=== PATIENT | female | born 1955 | race Caucasian/White ===

== ENCOUNTER 2017-03-08 02:37 | Inpatient (IN) | payer BC ==
[~2017-03-08] VITALS: Ht 165.1 cm; Wt 59.0 kg
[~2017-03-08 02:37] MED LIST: DOCU-144 PO; GABA300C16 PO; LORA1TAB PO; OMEP20CA16 PO; TRAM50TA2 PO; ZOLP10TA5 PO
--- NOTE | 2017-03-08 04:23 | ERA ---
ER Documentation Chief Complaint Date/Time DATE: 03/08/17 TIME: 04:22 Chief Complaint AP with vomiting HPI The patient is a 61-year-old female, presenting with severe diffuse abdominal pain, associated with vomiting initially food then mucus for 1 day. She had similar symptoms previously from small bowel obstruction. she denies fever, chills, neck pain, chest pain, dyspnea, dysuria, diarrhea, constipation. She does not smoke, drink Past medical history: Anxiety, history of small bowel obstruction, anemia, history of endometrial carcinoma Past surgical history: Hysterectomy, umbilical herniorrhaphy ROS All systems reviewed and are negative except as per history of present illness. Medications Home Meds Active Scripts Docusate Sodium* (Colace*) 100 Mg Capsule, 100 MG PO BID, #60 CAP Prov:ZUHAIR STEVENSON V. [employer] 07/25/16 Tramadol HCl (Tramadol HCl) 50 Mg Tablet, 50 MG PO BID Y for PAIN LEVEL 6-10, # 30 TAB Prov:ZUHAIR STEVENSON V. [employer]IL HAND[employer] 07/25/16 Reported Medications Lorazepam* (Lorazepam*) 1 Mg Tablet, 1 MG PO HS Y for ANXIETY, #30 TAB 07/21/16 Omeprazole* (Omeprazole*) 20 Mg Capsule.dr, 20 MG PO DAILY, #30 CAP 04/27/16 Gabapentin* (Gabapentin*) 300 Mg Capsule, 300 MG PO BID, #60 CAP 04/25/16 Zolpidem Tartrate* (Zolpidem Tartrate*) 10 Mg Tablet, 10 MG PO QHS Y for INSOMNIA, #30 TAB 03/23/16 Allergies Allergies: Coded Allergies: No Known Allergy (Unverified , 07/21/16) PMhx/Soc Anesthesia Reaction: No Hx Neurological Disorder: No Hx Respiratory Disorders: No Hx Cardiac Disorders: No Hx Psychiatric Problems: No Hx Miscellaneous Medical Probl: No Hx Alcohol Use: No Hx Substance Use: No Hx Tobacco Use: No Physical Exam Vitals Vital Signs Date Time Temp Pulse Resp B/P Pulse Ox O2 Delivery O2 Flow Rate FiO2 03/08/17 02:45 98.1 74 18 130/75 98 Physical Exam Const: No acute distress. Head: Atraumatic. Eyes: Normal Conjunctiva. ENT: Normal External Ears, Nose and Mouth. Neck: Full range of motion. No meningismus. Resp: Clear to auscultation bilaterally. Cardio: Regular rate and rhythm, no murmurs. Abd: Soft, non distended, normal bowel sounds, severe and diffuse abdominal tenderness, positive for guarding, hypoactive bowel sounds Skin: No petechiae or rashes. Back: No midline or flank tenderness. Ext: No cyanosis, or edema. Neur: Awake and alert. No focal deficit Psych: Normal Mood and Affect. Result Diagram: 03/08/17 0453 03/08/17 0430 Results 24 hrs Laboratory Tests Test 03/08/17 04:30 03/08/17 04:53 Sodium Level 140mmol/L Potassium Level 3.4mmol/L Chloride Level 104mmol/L Carbon Dioxide Level 26mmol/L Anion Gap 13 Blood Urea Nitrogen 18mg/dl Creatinine 1.03mg/dl Glucose Level 189mg/dl Calcium Level 8.9mg/dl Total Bilirubin 0.1mg/dl Direct Bilirubin 0.00mg/dl Indirect Bilirubin 0.1mg/dl Aspartate Amino Transf (AST/SGOT) 56IU/L Alanine Aminotransferase (ALT/SGPT) 32IU/L Alkaline Phosphatase 104IU/L Total Protein 7.6g/dl Albumin 4.1g/dl Globulin 3.50g/dl Albumin/Globulin Ratio 1.17 Lipase 106U/L White Blood Count 2.510^3/ul Red Blood Count 3.9610^6/ul Hemoglobin 8.4g/dl Hematocrit 28.5% Mean Corpuscular Volume 72.0fl Mean Corpuscular Hemoglobin 21.2pg Mean Corpuscular Hemoglobin Concent 29.5g/dl Red Cell Distribution Width 19.2% Platelet Count 81796^3/UL Mean Platelet Volume 10.5fl Neutrophils % 81.7% Lymphocytes % 16.3% Monocytes % 1.6% Eosinophils % 0.0% Basophils % 0.0% Nucleated Red Blood Cells % 0.0/100WBC Neutrophils # 2.110^3/ul Lymphocytes # 0.410^3/ul Monocytes # 0.010^3/ul Eosinophils # 0.010^3/ul Basophils # 0.010^3/ul Nucleated Red Blood Cells # 0.010^3/ul Current Medications Medications (Trade) Dose Ordered Sig/Gregoria Route PRN Reason Start Time Stop Time Status Last Admin Dose Admin Morphine Sulfate (morphine) 4 mg ONCE STAT IV 03/08/17 04:28 03/08/17 04:29 DC 03/08/17 04:49 Ondansetron HCl 4 mg 4 mg ONCE STAT IV 03/08/17 04:28 03/08/17 04:29 DC 03/08/17 04:49 Piperacillin Sod/ Tazobactam Sod (Zosyn 3.375gm/ 100 ml (Pmx)) 100 ml @ 200 mls/hr ONCE ONCE IVPB 03/08/17 05:30 03/08/17 05:59 Procedures/MDM [place] [id number] Radiology Main Line: [phone] DIAGNOSTIC IMAGING REPORT Patient: CATHY SALAMANCA : 1955 Age: 61 Sex: F MR #: [id number] DOS: 03/08/17 0428 Ordering MD: GEGE ISABEL MD Location: E/R Room/Bed: PROCEDURE: CT ABDOMEN/PELVIS WITHOUT CONTRAST CLINICAL INDICATION: 61-year-old female with abdominal pain. TECHNIQUE: The study was performed utilizing a [employer] VCT 64-slice CT scanner. Direct axial sections were obtained through the abdomen and pelvis without the use of intravenous contrast material. Sagittal and coronal reformations were obtained. One or more of the following dose reduction techniques were utilized: automated exposure control, adjustment of the mA and/ or kV according to patient's size or use of iterative reconstruction technique. The images were reviewed on a PACS workstation. CTD/vol = 6.9 mGy; Total Exam DLP = 386.7 mGy-cm. COMPARISON: CT abdomen/pelvis July 21, 2016. FINDINGS: There is minimal bibasilar subsegmental atelectasis. There is no evidence for significant pleural effusion. The liver has a normal size and contour without focal areas of abnormal density. No intrahepatic nor extrahepatic biliary ductal dilatation is seen. The gallbladder demonstrates no wall thickening nor pericholecystic fluid. No biliary stones are evident. The pancreas is without areas of abnormal attenuation. The spleen is identified and has a normal size without abnormal density. The adrenal glands are unremarkable. The kidneys are without abnormal density. The left kidney is again noted to be atrophic.. No hydroureteronephrosis nor nephroureterolithiasis is evident. The urinary bladder contains urine. There is a small hiatal hernia. There is evidence for prior ventral hernia repair. There are moderately dilated fluid-filled loops of small bowel with distal fecalization and transition point within the mid abdomen consistent with a small bowel obstruction. There is mild retained stool within the rectosigmoid region. The appendix is retrocecal and is without abnormal thickening or surrounding inflammatory reaction. The uterus is not visualized consistent with prior hysterectomy. There is no significant free fluid. The aortoiliac vessels are without aneurysmal dilatation. Degenerative changes are present within the spine. IMPRESSION: 1. Small hiatal hernia. 2. Prior ventral hernia repair. 3. Moderately dilated fluid-filled loops of small bowel with distal fecalization and transition point in the mid abdomen consistent with a small bowel obstruction. 4. No CT evidence for appendicitis. 5. Atrophic left kidney. 6. Status post hysterectomy. 7. Degenerative changes within the spine. .Berlin Woodson MD, MD Date Time Electronically viewed and signed by .Berlin Woodson MD, MD on 03/08/2017 05:25 .M/ CC: GEGE ISABEL MD MEDICAL MAKING DECISION: The patient is 61-year-old female, presenting with acute small bowel obstruction, acute hypokalemia, acute leukopenia. She was treated with Zosyn IV, morphine formula IV for pain, Zofran 4 mg IV for nausea, 1 L normal saline for clinical dehydration, nasogastric tube, potassium chloride 40 mEq IV. The differential diagnoses considered include but are not limited to cholelithiasis, cholecystitis, cystitis, pancreatitis, hepatitis, gastritis, peptic ulcer disease, gastric ulcer, appendicitis, diverticulitis, cholangitis, choledocholithiasis, partial small bowel obstruction. Consultation: I discussed the patient with the on-call general surgeon Dr. Sorenson at 5:30 AM, who was made aware of the lab, the treatment, the patient condition, he accepted the consult Critical Care: Time: 35 minutes excluding all billable procedures. Treatments/Evaluations: Close monitoring and treatment of unstable vital signs, cardiorespiratory, and neurologic status, while maintaining tight balance of fluid, respiratory, and cardiac interventions. Departure Diagnosis: Primary Impression: Small bowel obstruction Additional Impressions: Hypokalemia Leukopenia Anemia Condition: Stable Comments I discussed the findings with the patient. I discussed the patient with the on- call hospitalist Dr. Spann who was made aware of the lab, the treatment, the patient condition and my discussion with the general surgeon. The patient is admitted to medical surgery bed at 5:40 AM GEGE ISABEL MD Mar 08, 2017 04:23
[2017-03-08] MEDS ORDERED: morphine 4 MG/ML VIAL IV STA (04:28)
[2017-03-08] MEDS ORDERED: ONDANSETRON 4 MG INJ IV STA (04:28)
--- NOTE | 2017-03-08 05:25 | RADRPT ---
PROCEDURE: CT ABDOMEN/PELVIS WITHOUT CONTRAST CLINICAL INDICATION: 61-year-old female with abdominal pain. TECHNIQUE: The study was performed utilizing a [employer] VCT 64-slice CT scanner. Direct axia l sections were obtained through the abdomen and pelvis without the use of intravenous contrast mate rial. Sagittal and coronal reformations were obtained. One or more of the following dose reduction t echniques were utilized: automated exposure control, adjustment of the mA and/or kV according to pat ient's size or use of iterative reconstruction technique. The images were reviewed on a PACS workst [employer]. CTD/vol = 6.9 mGy; Total Exam DLP = 386.7 mGy-cm. COMPARISON: CT abdomen/pelvis July 21, 2016. FINDINGS: There is minimal bibasilar subsegmental atelectasis. There is no evidence for significant pleural e ffusion. The liver has a normal size and contour without focal areas of abnormal density. No intrah epatic nor extrahepatic biliary ductal dilatation is seen. The gallbladder demonstrates no wall thic kening nor pericholecystic fluid. No biliary stones are evident. The pancreas is without areas of ab normal attenuation. The spleen is identified and has a normal size without abnormal density. The ad renal glands are unremarkable. The kidneys are without abnormal density. The left kidney is again n oted to be atrophic.. No hydroureteronephrosis nor nephroureterolithiasis is evident. The urinary bl adder contains urine. There is a small hiatal hernia. There is evidence for prior ventral hernia rep air. There are moderately dilated fluid-filled loops of small bowel with distal fecalization and tr ansition point within the mid abdomen consistent with a small bowel obstruction. There is mild retained stool within the rectosigmoid region. The appendix is retrocecal and is without abnormal t hickening or surrounding inflammatory reaction. The uterus is not visualized consistent with prior h ysterectomy. There is no significant free fluid. The aortoiliac vessels are without aneurysmal dila tation. Degenerative changes are present within the spine. IMPRESSION: 1. Small hiatal hernia. 2. Prior ventral hernia repair. 3. Moderately dilated fluid-filled loops of small bowel with distal fecalization and transition poi nt in the mid abdomen consistent with a small bowel obstruction. 4. No CT evidence for appendicitis. 5. Atrophic left kidney. 6. Status post hysterectomy. 7. Degenerative changes within the spine. .Berlin Woodson MD, Date Time Electronically viewed and signed by .Berlin Woodson MD, on 03/08/2017 05:25 .M/
[2017-03-08 05:27] LABS: ABNORMAL IP MESSAGE 1; ADD SCAN DIFF NO; HEMATOCRIT 28.5 % (37.0-47.0); HEMOGLOBIN 8.4 g/dl (12.0-16.0); LYMPHOCYTES # 0.4 10^3/ul (0.8-2.9); LYMPHOCYTES % 16.3 % (15.0-51.0); MEAN CORPUSCULAR HEMOGLOBIN 21.2 pg (29.0-33.0); MEAN CORPUSCULAR HGB CONC 29.5 g/dl (32.0-37.0); MEAN PLATELET VOLUME 10.5 fl (7.4-10.4); MONOCYTES % 1.6 % (0.0-11.0); NEUTROPHIL # 2.1 10^3/ul (1.6-7.5); NEUTROPHILS % 81.7 % (39.0-77.0); PLATELET COUNT 313 10^3/UL (140-415); RED BLOOD COUNT 3.96 10^6/ul (4.20-5.40); RED CELL DISTRIBUTION WIDTH 19.2 % (11.5-14.5); WHITE BLOOD COUNT 2.5 10^3/ul (4.8-10.8)
[2017-03-08] MEDS ORDERED: PIPER-TAZO 3.375 GM IV (PMX) 100 ML IVPB ONE (05:30)
[2017-03-08 05:42] LABS: ALBUMIN 4.1 g/dl (3.3-4.9); ALBUMIN/GLOBULIN RATIO 1.17; BILIRUBIN,INDIRECT 0.1 mg/dl (0-1.1); BILIRUBIN,TOTAL 0.1 mg/dl (0.2-1.3); CALCIUM 8.9 mg/dl (8.4-10.2); CREATININE 1.03 mg/dl (0.44-1.00); POTASSIUM 3.4 mmol/L (3.5-5.1); TOTAL PROTEIN 7.6 g/dl (6.1-8.1)
[2017-03-08] MEDS ORDERED: ONDANSETRON 4 MG INJ IV ONE (05:55)
--- NOTE | 2017-03-08 05:57 | HP ---
Date/Time of Note Date/Time of Note DATE: 03/08/17 TIME: 05:55 Assessment/Plan VTE Prophylaxis VTE Prophylaxis Intervention: contraindicated VTE Contraindication Reason: bleeding (Bleeding Risk - Anemic at Hgb = 7) Assessment/Plan Assessment/Plan 1) Small bowel obstruction - Admit to Med-Surge - Bowel Rest/NPO - NGT placed in ER - Minimize narcotic use - IV Abx - ER in the process of notifying , General Surgeon on-call today 2) Anemia, Hypochromic, Microcytic with history of same, but Hgb = 8.4 today is the lowest it has been. 9.6 on 05/24/16 and 11.4 on 11/02/15 - Highly consider Iron Transfusion as patient cannot tolerate much po as she has a lot of stomach issues since her Chemo and XRT in 2009 3) Leukopenia, ANC = 2024 - No current action needed 4) Hypokalemia, mild. K+ = 3.4 - Already recieved 40 mEq of KCl in the ER - Repeat BMP in AM HPI/ROS Admit Date/Time Admit Date/Time 03/08/17 0542 Hx of Present Illness The patient is a 61-year-old female, presenting with severe diffuse abdominal pain, associated with vomiting initially food then mucus for 1 day. She had similar symptoms previously from small bowel obstruction. She already feels better now that the NGT has been placed in the ER. She denies fever, chills, neck pain, chest pain, dyspnea, dysuria, diarrhea, constipation. She does not smoke, drink. She states that she had a Colonoscopy in June 2016 and there were no abnormal findings. She denies melena or hematochezia. She states that her iron is low because she has not eaten well since 2009 because of all the scar tissue from her surgery and radiation treatments. She has had 1 previous SBO since then. When I suggested an Iron Transfusion, she is interested in it. ER Course per ER Physician: The patient is 61-year-old female, presenting with acute small bowel obstruction, acute hypokalemia, acute leukopenia. She was treated with Zosyn IV, morphine formula IV for pain, Zofran 4 mg IV for nausea, 1 L normal saline for clinical dehydration, nasogastric tube, potassium chloride 40 mEq IV. ROS General: Admits: General fatigue for at least a couple of years Denies: Fever, Chills, Poor Appetite, Generalized Body Aches Eyes: Admits: Denies: Blurry Vision, Double Vision HENT: Admits: Denies: Ear Pain/Pressure, Runny/Stuffy Nose, Sore Throat Cardiovascular: Admits: Denies: Chest Pain, Palpitations, Leg Swelling Pulmonary: Admits: Denies: Cough, Wheeze, Shortness of Breath Gastrointestinal: Admits: Abdominal Pain, Nausea, Vomiting, Denies: Diarrhea, Blood in Stool, Black-Colored Stool Urogenital: Admits: Denies: Burning with Urination, Urinary Frequency, Blood in Urine Musculoskeletal: Admits: Denies: Joint Pain, Joint Swelling, Muscle Pain Neurological: Admits: Denies: Headache, Dizziness, Numbness, Tingling, Shooting Pains Integumentary: Admits: Denies: Rash, Itch Hematologic: Admits: Iron Deficiency Anemia Denies: Spontaneous Bleeding, Easy Bruising PMH/Family/Social Past Medical History Anxiety; History of small bowel obstruction; Iron Deficiency Anemia, History of Endometrial Carcinoma; 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 Alert and oriented, in no acute distress. Appears tired. Non-toxic. Eyes: Sclera White, EOMI HENT: Normocephalic/Atraumatic, External Ears/Nose Normal, Moist Mucus Membranes Neck: Supple, Trachea Midline Cardiovascular: Normal Rate, Regular Rhythm, Normal S1 and S2, No Murmur, No Extra Sounds. Radial pulse +2/4. No pedal Edema. Pulmonary: Clear to Auscultation Bilaterally, Normal Respiratory Effort, No Rales, Rhonchi or Wheezes Gastrointestinal: Normoactive Bowel Sounds, Soft, Generally tender. No guarding or rebound. Non-Distended, No Hepatosplenomegaly Appreciated, No Pulsatile Masses Urogenital: Deferred Musculoskeletal: Normal Muscle Bulk and Tone Neurological: CN II - XII Grossly Intact, Non-Focal, Speech Normal Integumentary: Normal Moisture and Temperature, Good Turgor, No Jaundice, No Rash. Sallow/Pale Lymphatic: No Cervical Lymphadenopathy Psychiatric: Appropriate Mood and Affect, Good Eye Contact Labs Result Diagram: 03/08/17 0453 03/08/17 0430 Medications Medications Home Meds Active Scripts Docusate Sodium* (Colace*) 100 Mg Capsule, 100 MG PO BID, #60 CAP Prov:ZUHAIR STEVENSON V. [employer]TER OUT 07/25/16 Tramadol HCl (Tramadol HCl) 50 Mg Tablet, 50 MG PO BID Y for PAIN LEVEL 6-10, # 30 TAB Prov:ZUHAIR STEVENSON V. [employer] 07/25/16 Reported Medications Lorazepam* (Lorazepam*) 1 Mg Tablet, 1 MG PO HS Y for ANXIETY, #30 TAB 07/21/16 Omeprazole* (Omeprazole*) 20 Mg Capsule.dr, 20 MG PO DAILY, #30 CAP 04/27/16 Gabapentin* (Gabapentin*) 300 Mg Capsule, 300 MG PO BID, #60 CAP 04/25/16 Zolpidem Tartrate* (Zolpidem Tartrate*) 10 Mg Tablet, 10 MG PO QHS Y for INSOMNIA, #30 TAB 03/23/16 Current Medications Medications (Trade) Dose Ordered Sig/Gregoria Route PRN Reason Start Time Stop Time Status Last Admin Dose Admin Morphine Sulfate (morphine) 4 mg ONCE STAT IV 03/08/17 04:28 03/08/17 04:29 DC 03/08/17 04:49 Ondansetron HCl 4 mg 4 mg ONCE STAT IV 03/08/17 04:28 03/08/17 04:29 DC 03/08/17 04:49 Piperacillin Sod/ Tazobactam Sod (Zosyn 3.375gm/ 100 ml (Pmx)) 100 ml @ 200 mls/hr ONCE ONCE IVPB 03/08/17 05:30 03/08/17 05:59 Procedures Procedures Laboratory Tests Test 03/08/17 04:30 03/08/17 04:53 Sodium Level 140mmol/L Potassium Level 3.4mmol/L Chloride Level 104mmol/L Carbon Dioxide Level 26mmol/L Anion Gap 13 Blood Urea Nitrogen 18mg/dl Creatinine 1.03mg/dl Glucose Level 189mg/dl Calcium Level 8.9mg/dl Total Bilirubin 0.1mg/dl Direct Bilirubin 0.00mg/dl Indirect Bilirubin 0.1mg/dl Aspartate Amino Transf (AST/SGOT) 56IU/L Alanine Aminotransferase (ALT/SGPT) 32IU/L Alkaline Phosphatase 104IU/L Total Protein 7.6g/dl Albumin 4.1g/dl Globulin 3.50g/dl Albumin/Globulin Ratio 1.17 Lipase 106U/L White Blood Count 2.510^3/ul Red Blood Count 3.9610^6/ul Hemoglobin 8.4g/dl Hematocrit 28.5% Mean Corpuscular Volume 72.0fl Mean Corpuscular Hemoglobin 21.2pg Mean Corpuscular Hemoglobin Concent 29.5g/dl Red Cell Distribution Width 19.2% Platelet Count 50836^3/UL Mean Platelet Volume 10.5fl Neutrophils % 81.7% Lymphocytes % 16.3% Monocytes % 1.6% Eosinophils % 0.0% Basophils % 0.0% Nucleated Red Blood Cells % 0.0/100WBC Neutrophils # 2.110^3/ul Lymphocytes # 0.410^3/ul Monocytes # 0.010^3/ul Eosinophils # 0.010^3/ul Basophils # 0.010^3/ul Nucleated Red Blood Cells # 0.010^3/ul PROCEDURE: CT ABDOMEN/PELVIS WITHOUT CONTRAST CLINICAL INDICATION: 61-year-old female with abdominal pain. COMPARISON: CT abdomen/pelvis July 21, 2016. FINDINGS: There is minimal bibasilar subsegmental atelectasis. There is no evidence for significant pleural effusion. The liver has a normal size and contour without focal areas of abnormal density. No intrahepatic nor extrahepatic biliary ductal dilatation is seen. The gallbladder demonstrates no wall thickening nor pericholecystic fluid. No biliary stones are evident. The pancreas is without areas of abnormal attenuation. The spleen is identified and has a normal size without abnormal density. The adrenal glands are unremarkable. The kidneys are without abnormal density. The left kidney is again noted to be atrophic.. No hydroureteronephrosis nor nephroureterolithiasis is evident. The urinary bladder contains urine. There is a small hiatal hernia. There is evidence for prior ventral hernia repair. There are moderately dilated fluid-filled loops of small bowel with distal fecalization and transition point within the mid abdomen consistent with a small bowel obstruction. There is mild retained stool within the rectosigmoid region. The appendix is retrocecal and is without abnormal thickening or surrounding inflammatory reaction. The uterus is not visualized consistent with prior hysterectomy. There is no significant free fluid. The aortoiliac vessels are without aneurysmal dilatation. Degenerative changes are present within the spine. IMPRESSION: 1. Small hiatal hernia. 2. Prior ventral hernia repair. 3. Moderately dilated fluid-filled loops of small bowel with distal fecalization and transition point in the mid abdomen consistent with a small bowel obstruction. 4. No CT evidence for appendicitis. 5. Atrophic left kidney. 6. Status post hysterectomy. 7. Degenerative changes within the spine. ALEXANDR CANDELARIO DO Mar 08, 2017 05:57 Tramadol HCl (Tramadol HCl) 50 Mg Tablet, 50 MG PO BID Y for PAIN LEVEL 6-10, # 30 TAB Prov:ZUHAIR STEVENSON V. [employer] 07/25/16 Reported Medications Lorazepam* (Lorazepam*) 1 Mg Tablet, 1 MG PO HS Y for ANXIETY, #30 TAB 07/21/16 Omeprazole* (Omeprazole*) 20 Mg Capsule.dr, 20 MG PO DAILY, #30 CAP 04/27/16 Gabapentin* (Gabapentin*) 300 Mg Capsule, 300 MG PO BID, #60 CAP 04/25/16 Zolpidem Tartrate* (Zolpidem Tartrate*) 10 Mg Tablet, 10 MG PO QHS Y for INSOMNIA, #30 TAB 03/23/16 Procedures Procedures PROCEDURE: CT ABDOMEN/PELVIS WITHOUT CONTRAST CLINICAL INDICATION: 61-year-old female with abdominal pain. COMPARISON: CT abdomen/pelvis July 21, 2016. FINDINGS: There is minimal bibasilar subsegmental atelectasis. There is no evidence for significant pleural effusion. The liver has a normal size and contour without focal areas of abnormal density. No intrahepatic nor extrahepatic biliary ductal dilatation is seen. The gallbladder demonstrates no wall thickening nor pericholecystic fluid. No biliary stones are evident. The pancreas is without areas of abnormal attenuation. The spleen is identified and has a normal size without abnormal density. The adrenal glands are unremarkable. The kidneys are without abnormal density. The left kidney is again noted to be atrophic.. No hydroureteronephrosis nor nephroureterolithiasis is evident. The urinary bladder contains urine. There is a small hiatal hernia. There is evidence for prior ventral hernia repair. There are moderately dilated fluid-filled loops of small bowel with distal fecalization and transition point within the mid abdomen consistent with a small bowel obstruction. There is mild retained stool within the rectosigmoid region. The appendix is retrocecal and is without abnormal thickening or surrounding inflammatory reaction. The uterus is not visualized consistent with prior hysterectomy. There is no significant free fluid. The aortoiliac vessels are without aneurysmal dilatation. Degenerative changes are present within the spine.
[2017-03-08] MEDS ORDERED: METOCLOPRAMIDE 10 MG INJ IV PRN (06:00)
[2017-03-08] MEDS ORDERED: NACL 0.9% 3 ML SYG IV SCH (06:00)
[2017-03-08] MEDS ORDERED: SOD CHLORIDE 0.9% 1,000 ML IV ONE (06:00)
[2017-03-08] MEDS ORDERED: morphine 2 MG INJ IV ONE (06:00)
[2017-03-08] MEDS ORDERED: POTASSIUM CHLORIDE 250 ML IVPB ONE (06:00)
[2017-03-08] MEDS ORDERED: morphine 2 MG INJ IV PRN (06:00)
[2017-03-08] MEDS ORDERED: FAMOTIDINE 20 MG INJ IV ONE (06:00)
[2017-03-08] MEDS: SOD CHLORIDE 0.9% 1,000 ML IV SCH ×2 (06:33→15:48)
[2017-03-08 08:54] VITALS: TEMP 97.7
--- NOTE | 2017-03-08 08:54 | QN ---
Documentation Comment Called by ER to see patient. Patient is a patient of Dr. Avalos. Personally notified him of consult. GEGE CONROY MD Mar 08, 2017 08:54
[2017-03-08 09:05] VITALS: BP 123/63; RESP 18
--- NOTE | 2017-03-08 11:45 | CONS ---
DATE OF ADMISSION: 03/08/2017 DATE OF CONSULTATION: 03/08/2017 HISTORY OF PRESENT ILLNESS: This is a 61-year-old female presenting with severe diffuse abdominal p ain associated with vomiting and nausea for approximately 1 day. She has had repeated small bowel o bstructions before. CT scan shows small bowel obstruction with possible transition zone; however, s he denies any fevers, chills, neck pain, chest pain, dyspnea, or dysuria. She also admits to still passing gas and having some minimal stool. She had a colonoscopy in 2016. There are no abnormal fi ndings. General surgery consulted for evaluation and management. REVIEW OF SYSTEMS: A 12-point review of systems negative, otherwise, except for mentioned in the HP I. 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 PAST SURGICAL HISTORY: Total abdominal hysterectomy, bilateral salpingo-oophorectomy, and ventral h erniorrhaphy. LABORATORIES: White blood cell count is 2.5, hemoglobin 8.4, platelets of 313. Chemistries: Sodiu m 140, potassium 3.4, chloride is 104, carbon dioxide 26, BUN is 18, creatinine 1.0. Glucose 189, T bilirubin is 0.1, AST is 56, ALT 33, alkaline phosphatase 104, lipase is 106. CT scan imaging show s moderately dilated fluid-filled loops of bowel with distal fecalization and transition point in th e mid abdomen consistent with small bowel obstruction. PHYSICAL EXAMINATION: VITAL SIGNS: Temperature is 97.7, pulse is 68, respiratory rate is 18, blood pressure is 118/69. GENERAL: Frail-appearing female with NG tube in place. HEENT: PERRLA, EOMI. NECK: Supple, midline. CARDIOVASCULAR: Regular rate and rhythm. PULMONARY: Clear to auscultation. ABDOMEN: Soft, moderate tenderness. No peritoneal signs, no rebound tenderness. ASSESSMENT AND PLAN: This is a 61-year-old female with history of small bowel obstruction and endom etrial cancer. Although there is a transition point on the CAT scan, the patient admits to having s ome flatus and minimal bowel movements. This is most likely a partial small bowel obstruction. If the patient does not resolve in 2 to 3 days will opt for an operative management; however, the patie nt does not want surgery at this time. Will continue to follow. Dictated By: SAIRA BRANDON/MARYBETH Conf#: [id number] DID#: [id number]
[2017-03-08 12:07] LABS: IRON 18 ug/dl (35-150)
[2017-03-08 12:16] LABS: TOTAL IRON BINDING CAPACITY 444 ug/dl (241-421)
[2017-03-08 13:12] VITALS: Ht 165.1 cm; Wt 59.0 kg
[2017-03-08] MEDS: SOD FERRIC GLUC COMPLX 125 MG in SOD CHLORIDE 0.9% 100 ML IVPB SCH (17:55)
[2017-03-08 20:04] VITALS: BP 90/57; RESP 20
[2017-03-08] MEDS: LORAZEPAM 1 MG TAB PO PRN (21:48)
[2017-03-09] MEDS: SOD CHLORIDE 0.9% 1,000 ML IV SCH ×3 (02:05→22:25)
[2017-03-09 05:34] LABS: ADD SCAN DIFF NO; BASOPHILS % 0.2 % (0.0-2.0); EOSINOPHILS % 0.7 % (0.0-7.0); HEMATOCRIT 23.5 % (37.0-47.0); LYMPHOCYTES # 1.2 10^3/ul (0.8-2.9); MEAN CORPUSCULAR HEMOGLOBIN 21.7 pg (29.0-33.0); MEAN CORPUSCULAR HGB CONC 29.8 g/dl (32.0-37.0); MEAN CORPUSCULAR VOLUME 72.8 fl (82.0-101.0); MONOCYTE # 0.3 10^3/ul (0.3-0.9); MONOCYTES % 7.6 % (0.0-11.0); NEUTROPHIL # 2.9 10^3/ul (1.6-7.5); NEUTROPHILS % 64.5 % (39.0-77.0); PLATELET COUNT 336 10^3/UL (140-415); RED BLOOD COUNT 3.23 10^6/ul (4.20-5.40); RED CELL DISTRIBUTION WIDTH 19.3 % (11.5-14.5); WHITE BLOOD COUNT 4.5 10^3/ul (4.8-10.8)
[2017-03-09 05:49] LABS: MAGNESIUM 2.1 mg/dl (1.7-2.5); PHOSPHORUS 2.4 mg/dl (2.5-4.9)
[2017-03-09 06:00] LABS: ALBUMIN/GLOBULIN RATIO 1.03; BILIRUBIN,INDIRECT 0.1 mg/dl (0-1.1); BILIRUBIN,TOTAL 0.1 mg/dl (0.2-1.3); CALCIUM 7.7 mg/dl (8.4-10.2); CREATININE 0.99 mg/dl (0.44-1.00); INR 1.23; POTASSIUM 3.6 mmol/L (3.5-5.1); PROTIME 15.6 Sec (12.2-14.2); PT RATIO 1.2; TOTAL PROTEIN 5.9 g/dl (6.1-8.1)
[2017-03-09 06:01] LABS: CHOL/HDL RATIO 1.7 RATIO; PARTIAL THROMBOPLASTIN TIME 37.1 Sec (25.0-35.0)
[2017-03-09 06:22] LABS: THYROID STIMULATING HORMONE 0.912 MIU/L (0.465-4.680)
[2017-03-09 07:00] VITALS: BP 95/55; RESP 20
[2017-03-09 10:31] LABS: HEMATOCRIT 22.3 % (37.0-47.0)
[2017-03-09 10:39] LABS: HEMOGLOBIN 6.3 g/dl (12.0-16.0)
[2017-03-09] MEDS ORDERED: SOD CHLORIDE 0.9% 250 ML IV* ONE (10:58)
[2017-03-09] MEDS ORDERED: FUROSEMIDE 40 MG INJ IV SCH (11:00)
--- NOTE | 2017-03-09 11:34 | PN ---
DATE: 03/09/2017 Time of evaluation 9:00 a.m. SUBJECTIVE DATA: Denies any complaints. Denies any abdominal pain. The patient verbalized that she is passing gas. OBJECTIVE DATA: VITAL SIGNS: Temperature 98.2, pulse rate 77, respiratory rate 20, oxygen saturation 96% on room air. GENERAL: This is an adequately built female lying in bed in no apparent distress. HEENT: Head normocephalic and atraumatic. Eyes: Anicteric sclerae. Conjunctivae clear. ENT: Nasal septum is midline. Oral mucosa is dry. NG tube in place that is clamped. NECK: Supple. No JVD noticed. RESPIRATORY: Bilaterally clear to auscultation. No adventitious breath sounds heard. No use of accessory muscles of respiration. CARDIAC: Regular rate and rhythm. No murmurs heard. ABDOMEN: Soft, nontender. Bowel sounds hypoactive in all 4 quadrants. GENITOURINARY: Deferred. EXTREMITIES: No cyanosis, no clubbing, no edema. Peripheral pulses palpable. NEUROLOGIC: The patient is awake, alert and oriented. Cranial nerves are grossly intact. LABORATORY AND DIAGNOSTIC DATA: WBC 4.5, hemoglobin 7.9, hematocrit 23.5, platelet count 336. Sodium 141, potassium 3.6, chloride 113, carbon dioxide 23 , anion gap 9, BUN 14, creatinine 0.9, glucose 80, calcium 7.7, phosphorus 2.4, magnesium 2.1. ASSESSMENT AND PLAN: 1. Acute abdominal pain. CT evidence of small-bowel obstruction. The patient currently has NG tube in place. The patient being followed by a surgeon. As per the surgeon, the patient most probably has a partial small-bowel obstruction. Continue conservative management. Continue pain control. 2. Microcytic, hypochromic anemia. Iron panel showing iron deficiency. The patient currently on iron supplements. The patient's hemoglobin and hematocrit dropped significantly from yesterday. Repeat H and H also confirm this. The patient will br transfused with 2 units of packed red blood cells. A stool for occult blood will also be ordered on this patient. 3. Uterine cancer, status post hysterectomy. 4. Fluid, electrolytes and nutrition. Currently n.p.o. Continue IV fluids. 5. DVT prophylaxis with bilateral sequential compression devices. 6. Gastrointestinal prophylaxis. Histamine 2 receptor blockers. 7. Plan. Await further recommendations from the surgeon. Transfuse 2 units of packed red blood cells. Further plan of care was explained to the patient. Case discussed with Dr. Jones. ROLANDA JONES MD, AM/MARYBETH Conf#: [id number] DID#: [id number] MTDD
[2017-03-09] MEDS ORDERED: CEPASTAT LOZENGE MT PRN (12:30)
[2017-03-09 13:00] VITALS: BP 92/51; RESP 20
--- NOTE | 2017-03-09 14:37 | PN ---
DATE: 03/09/2017 SUBJECTIVE: The patient has been admitted because of at least partial small-bowel obstruction, prov ed by CT scan The patient does not have any complaints except that the NG tube is bothering her. A pparently NG tube had been placed in the emergency room, but has not been connected to suction yet. The patient states that she had passed a little bit of gas. No nausea, no vomiting. OBJECTIVE: VITAL SIGNS: Temperature 98.2, heart rate 77, respirations 20, blood pressure 95/55, saturation 96% on room air. GENERAL: The NG tube was pulled back, adjusted, connected to intermittent suction ABDOMEN: Soft, some tenderness here and there, but no rebound tenderness. Bowel sounds are 2+/4+. EXTREMITIES: Legs no calf tenderness. LABORATORY DATA: Today, WBC 4500 with 64% segmented. Hemoglobin 7, hematocrit 23.5. Repeat is 6.3 and 22.3 hematocrit. Hemoglobin A1c 5.4, normal. Phosphorus 2.4, low CT scan was reviewed. ASSESSMENT: This is a 61-year-old female with a history of endometrial cancer, status post total ab dominal hysterectomy, bilateral salpingo-oophorectomy and also ventral incisional hernia repair last year, now is being admitted due to nausea and vomiting for [address] scan shows dilat ed loops of the small bowel with transition point and fecalization of the distal small bowel consist ent with a small-bowel obstruction. Since admission, the patient has not gotten worse, probably has gotten a little bit better as she says. PLAN: Continue the NG tube. Observe the patient. Started the patient on Cepacol for sore throat a nd also give ice chips, 1 cup every 8 hours. If the patient is doing better by tomorrow, we may rem ove tomorrow the NG tube and I am planning to order the small bowel follow-through by Saturday . Dictated By: YASSINE RAJPUT/MARYBETH Conf#: [id number] DID#: [id number]
[2017-03-09] MEDS: SOD FERRIC GLUC COMPLX 125 MG in SOD CHLORIDE 0.9% 100 ML IVPB SCH (18:19)
[2017-03-09 20:07] VITALS: BP 108/60; RESP 18
[2017-03-09 21:10] VITALS: BP 109/62; PULSE 68; RESP 18
[2017-03-09 21:48] VITALS: BP 105/60; PULSE 71; RESP 18
[2017-03-09] MEDS: FAMOTIDINE 20 MG INJ IV SCH (22:24)
[2017-03-10 05:31] LABS: ADD SCAN DIFF NO
[2017-03-10 05:33] LABS: BASOPHILS % 0.3 % (0.0-2.0); EOSINOPHILS # 0.1 10^3/ul (0.0-0.5); EOSINOPHILS % 0.8 % (0.0-7.0); HEMATOCRIT 31.8 % (37.0-47.0); HEMOGLOBIN 9.8 g/dl (12.0-16.0); LYMPHOCYTES # 1.6 10^3/ul (0.8-2.9); LYMPHOCYTES % 25.4 % (15.0-51.0); MEAN CORPUSCULAR HEMOGLOBIN 23.4 pg (29.0-33.0); MEAN CORPUSCULAR HGB CONC 30.8 g/dl (32.0-37.0); MEAN CORPUSCULAR VOLUME 75.9 fl (82.0-101.0); MEAN PLATELET VOLUME 10.1 fl (7.4-10.4); MONOCYTE # 0.5 10^3/ul (0.3-0.9); MONOCYTES % 7.7 % (0.0-11.0); NEUTROPHIL # 4.1 10^3/ul (1.6-7.5); PLATELET COUNT 313 10^3/UL (140-415); RED BLOOD COUNT 4.19 10^6/ul (4.20-5.40); RED CELL DISTRIBUTION WIDTH 20.3 % (11.5-14.5); WHITE BLOOD COUNT 6.3 10^3/ul (4.8-10.8)
[2017-03-10 05:48] LABS: POTASSIUM 3.2 mmol/L (3.5-5.1)
[2017-03-10 05:51] LABS: CREATININE 0.98 mg/dl (0.44-1.00)
[2017-03-10 05:52] LABS: CALCIUM 8.4 mg/dl (8.4-10.2)
[2017-03-10 06:13] LABS: MAGNESIUM 1.9 mg/dl (1.7-2.5); PHOSPHORUS 3.1 mg/dl (2.5-4.9)
[2017-03-10] MEDS: SOD CHLORIDE 0.9% 1,000 ML IV SCH ×3 (07:56→23:50)
[2017-03-10 08:57] VITALS: BP 103/56; RESP 16
[2017-03-10] MEDS: FAMOTIDINE 20 MG INJ IV SCH ×2 (09:08→21:25)
--- NOTE | 2017-03-10 10:18 | PN ---
Date/Time of Note Date/Time of Note DATE: 03/10/17 TIME: 10:17 Assessment/Plan VTE Prophylaxis VTE Prophylaxis Intervention: SCD's Lines/Catheters IV Catheter Type (from Nrs): Peripheral IV Assessment/Plan Chief Complaint/Hosp Course 1. Acute abdominal pain. CT evidence of small-bowel obstruction. The patient currently has NG tube in place. The patient being followed by surgeon. As per surgeon, the patient most probably has a partial small-bowel obstruction. Continue conservative management. Continue pain control. 2. Microcytic hypochromic anemia. Iron panel showing iron deficiency. The patient currently on iron supplements. Status post 2 units of PRBC transfusion on 03/09/2017. 3. Uterine cancer. Status post hysterectomy. 4. Fluid, electrolytes and nutrition. Currently n.p.o. Continue IV fluids. 5. DVT prophylaxis with bilateral sequential compression devices 6. Gastrointestinal prophylaxis. Histamine 2 receptor blockers. 7. Plan. Continue pain control. Follow surgery recommendations (NGT decompression). Replete potassium. Case discussed with Dr. Rousseau. Problems: Subjective 24 Hr Interval Summary Free Text/Dictation Remains on NGT decompression. Complains of sore throat. Exam/Review of Systems Vital Signs Vitals Vital Signs Date Time Temp Pulse Resp B/P Pulse Ox O2 Delivery O2 Flow Rate FiO2 03/10/17 08:57 97.8 67 16 103/56 97 03/09/17 21:48 Room Air Intake and Output 03/09/17 03/09/17 03/10/17 15:00 23:00 07:00 Intake Total 500 ml 800 ml 900 ml Output Total 1200 ml 1450 ml Balance 500 ml -400 ml -550 ml Exam GENERAL: This is an adequately built female lying in bed in no apparent distress. HEENT: Head normocephalic and atraumatic. Eyes: Anicteric sclerae. Conjunctivae clear. ENT: Nasal septum is midline. Oral mucosa is dry. NG tube in place that is clamped. NECK: Supple. No JVD noticed. RESPIRATORY: Bilaterally clear to auscultation. No adventitious breath sounds heard. No use of accessory muscles of respiration. CARDIAC: Regular rate and rhythm. No murmurs heard. ABDOMEN: Soft, nontender. Bowel sounds hypoactive in all 4 quadrants. GENITOURINARY: Deferred. EXTREMITIES: No cyanosis, no clubbing, no edema. Peripheral pulses palpable. NEUROLOGIC: The patient is awake, alert and oriented. Cranial nerves are grossly intact. Results Result Diagram: 03/10/17 0435 03/10/17 0435 Results 24 hrs Laboratory Tests Test 03/10/17 04:35 White Blood Count 6.3 # Red Blood Count 4.19 #L Hemoglobin 9.8 #L Hematocrit 31.8 #L Mean Corpuscular Volume 75.9 L Mean Corpuscular Hemoglobin 23.4 L Mean Corpuscular Hemoglobin Concent 30.8 L Red Cell Distribution Width 20.3 H Platelet Count 313 Mean Platelet Volume 10.1 Neutrophils % 65.0 Lymphocytes % 25.4 Monocytes % 7.7 Eosinophils % 0.8 Basophils % 0.3 Nucleated Red Blood Cells % 0.0 Neutrophils # 4.1 Lymphocytes # 1.6 Monocytes # 0.5 Eosinophils # 0.1 Basophils # 0.0 Nucleated Red Blood Cells # 0.0 Sodium Level 143 Potassium Level 3.2 L Chloride Level 108 Carbon Dioxide Level 21 Anion Gap 17 #H Blood Urea Nitrogen 18 Creatinine 0.98 Glucose Level 55 #L Calcium Level 8.4 Phosphorus Level 3.1 Magnesium Level 1.9 Medications Medications Current Medications Sodium Chloride (NS) 1,000 ml @ 100 mls/hr Q10H IV Last administered on 22:25; Admin Dose 100 MLS/HR; Start 03/08/17 at 05:56 Metoclopramide HCl (Reglan) 10 mg Q6H PRN IV NAUSEA AND/OR VOMITING; Start 03/08 at 06:00 Morphine Sulfate 2 mg 2 mg Q4H PRN IV SEVERE PAIN LEVEL 7-10 Last administered on 03/09/17 22:34; Admin Dose 2 MG; Start 03/08/17 at 06:00 Ferric Sodium Gluconate Complex/ Sodium Chloride (Ferrlecit/NS) 110 ml @ 100 mls/hr Q24H IVPB Last administered on 03/09/17 18:19; Admin Dose 100 MLS/HR; Start 03/08/17 at 17:00; Stop 03/10/17 at 18:05 Lorazepam (Ativan) 1 mg HS PRN PO INSOMNIA Last administered on 03/08/17 21:48 ; Admin Dose 1 MG; Start 03/08/17 at 21:30 Furosemide (Lasix) 20 mg ONCE IV Last administered on 03/09/17 18:18; Admin Dose 20 MG; Start 03/09/17 at 11:00; Stop 03/10/17 at 10:59 Famotidine (Pepcid Iv) 20 mg BID IV Last administered on 03/10/17 09:08; Admin Dose 20 MG; Start 03/09/17 at 21:00 Phenol (Cepastat Lozenge) 1 lozenge Q3H PRN MT SORE THROAT Last administered on 03/09/17 18:52; Admin Dose 1 LOZENGE; Start 03/09/17 at 12:30 ROLANDA GARIBAY [employer] Mar 10, 2017 10:18
[2017-03-10] MEDS ORDERED: POTASSIUM CHLORIDE 250 ML IVPB ONE (11:30)
--- NOTE | 2017-03-10 15:15 | PN ---
DATE: 03/10/2017 SUBJECTIVE: She feels better. NG tube is in place. She has been passing a little bit of gas, no bowel movement. No abdominal pain at this time. OBJECTIVE: VITAL SIGNS: 97.8, 67. 16, 103/56. 97% on room air. LABORATORY DATA: WBC 6300. The patient has received 2 units of packed cells and hemoglobin has increased to 9.8, hematocrit 31.8. Platelet is 313. Chemistry: Potassium 3.2, replaced. BUN 18, creatinine 0.98. ABDOMEN: Soft, mild tenderness. NG tube has drained 800 mL of slightly bilious fluid. Considering patient is on ice chips . ASSESSMENT: A 61-year-old female admitted with nausea and vomiting diagnosis, per CT scan small-bowel obstruction, (this is a recurrent small-bowel obstruction). The patient is passing minimal amount of gas since admission. No bowel movement. Patient has had a history of total abdominal hysterectomy and salpingo-oophorectomy, bilateral, probably other procedures in the intra- abdominal for endometrial cancer and chemotherapy. Radiation. PLAN: I am ordering a small bowel series tomorrow to evaluate the status of the small bowel. Will keep the NG tube for the time being. When the patient goes down for the x-ray tomorrow, I instructed the nurse to clamp the NG tube and keep it clamped until we get the result of the small bowel series, do not connect it back to the suction when she comes back from radiology tomorrow. Dictated By: YASSINE SANTA MD PS/NTS Conf#: [id number] DID#: [id number] CC: ALEXANDR CANDELARIO MD;*EndCC* MTDD
[2017-03-10] MEDS: SOD FERRIC GLUC COMPLX 125 MG in SOD CHLORIDE 0.9% 100 ML IVPB SCH (17:19)
[2017-03-10 19:58] VITALS: BP 112/63; RESP 18
[2017-03-10] MEDS: LORAZEPAM 1 MG TAB PO PRN (21:25)
[2017-03-11 04:54] LABS: ADD SCAN DIFF NO
[2017-03-11 04:59] LABS: BASOPHILS % 0.1 % (0.0-2.0); EOSINOPHILS # 0.1 10^3/ul (0.0-0.5); EOSINOPHILS % 1.5 % (0.0-7.0); HEMATOCRIT 33.1 % (37.0-47.0); HEMOGLOBIN 9.9 g/dl (12.0-16.0); LYMPHOCYTES # 1.6 10^3/ul (0.8-2.9); LYMPHOCYTES % 23.7 % (15.0-51.0); MEAN CORPUSCULAR HEMOGLOBIN 23.2 pg (29.0-33.0); MEAN CORPUSCULAR HGB CONC 29.9 g/dl (32.0-37.0); MEAN CORPUSCULAR VOLUME 77.5 fl (82.0-101.0); MEAN PLATELET VOLUME 9.5 fl (7.4-10.4); MONOCYTE # 0.5 10^3/ul (0.3-0.9); MONOCYTES % 7.1 % (0.0-11.0); NEUTROPHIL # 4.5 10^3/ul (1.6-7.5); NEUTROPHILS % 65.7 % (39.0-77.0); PLATELET COUNT 327 10^3/UL (140-415); RED BLOOD COUNT 4.27 10^6/ul (4.20-5.40); RED CELL DISTRIBUTION WIDTH 21.3 % (11.5-14.5); WHITE BLOOD COUNT 6.9 10^3/ul (4.8-10.8)
[2017-03-11 05:15] LABS: MAGNESIUM 1.8 mg/dl (1.7-2.5); PHOSPHORUS 3.2 mg/dl (2.5-4.9)
[2017-03-11 05:17] LABS: POTASSIUM 4.1 mmol/L (3.5-5.1)
[2017-03-11 05:20] LABS: CREATININE 0.92 mg/dl (0.44-1.00)
[2017-03-11 07:34] VITALS: BP 107/64; RESP 20
[2017-03-11] MEDS: FAMOTIDINE 20 MG INJ IV SCH ×2 (09:00→21:39)
--- NOTE | 2017-03-11 10:22 | PN ---
Date/Time of Note Date/Time of Note DATE: 03/11/17 TIME: 10:20 Assessment/Plan VTE Prophylaxis VTE Prophylaxis Intervention: SCD's Lines/Catheters IV Catheter Type (from Nrs): Peripheral IV Assessment/Plan Chief Complaint/Hosp Course PSBO with history of EDIN and BSO with chemo Problems: Assessment/Plan passing flatus and small bm will get SBFT to identify if she needs operative management Subjective 24 Hr Interval Summary Free Text/Dictation patient passed some flatus and had a small bm Exam/Review of Systems Vital Signs Vitals Vital Signs Date Time Temp Pulse Resp B/P Pulse Ox O2 Delivery O2 Flow Rate FiO2 03/11/17 07:34 97.9 70 20 107/64 100 03/09/17 21:48 Room Air Intake and Output 03/10/17 03/10/17 03/11/17 15:00 23:00 07:00 Intake Total 700 ml 1710 ml Output Total 850 ml 100 ml Balance -150 ml 1610 ml Exam deferred Results Result Diagram: 03/11/17 0444 03/11/17 0444 Results 24 hrs Laboratory Tests Test 03/11/17 04:44 White Blood Count 6.9 Red Blood Count 4.27 Hemoglobin 9.9 L Hematocrit 33.1 L Mean Corpuscular Volume 77.5 L Mean Corpuscular Hemoglobin 23.2 L Mean Corpuscular Hemoglobin Concent 29.9 L Red Cell Distribution Width 21.3 H Platelet Count 327 Mean Platelet Volume 9.5 Neutrophils % 65.7 Lymphocytes % 23.7 Monocytes % 7.1 Eosinophils % 1.5 Basophils % 0.1 Nucleated Red Blood Cells % 0.0 Neutrophils # 4.5 Lymphocytes # 1.6 Monocytes # 0.5 Eosinophils # 0.1 Basophils # 0.0 Nucleated Red Blood Cells # 0.0 Sodium Level 143 Potassium Level 4.1 Chloride Level 112 H Carbon Dioxide Level 16 L Anion Gap 19 H Blood Urea Nitrogen 15 Creatinine 0.92 Glucose Level 57 L Calcium Level 9.0 Phosphorus Level 3.2 Magnesium Level 1.8 Medications Medications Current Medications Sodium Chloride (NS) 1,000 ml @ 100 mls/hr Q10H IV Last administered on t 23:50; Admin Dose 100 MLS/HR; Start 03/08/17 at 05:56 Metoclopramide HCl (Reglan) 10 mg Q6H PRN IV NAUSEA AND/OR VOMITING; Start 03/08 at 06:00 Morphine Sulfate (morphine) 2 mg Q4H PRN IV SEVERE PAIN LEVEL 7-10 Last administered on 03/09/17 22:34; Admin Dose 2 MG; Start 03/08/17 at 06:00 Lorazepam (Ativan) 1 mg HS PRN PO INSOMNIA Last administered on 03/10/17 21:25 ; Admin Dose 1 MG; Start 03/08/17 at 21:30 Famotidine (Pepcid Iv) 20 mg BID IV Last administered on 03/10/17 21:25; Admin Dose 20 MG; Start 03/09/17 at 21:00 Phenol (Cepastat Lozenge) 1 lozenge Q3H PRN MT SORE THROAT Last administered on 03/09/17 18:52; Admin Dose 1 LOZENGE; Start 03/09/17 at 12:30 Law MONTERO Mar 11, 2017 10:21
--- NOTE | 2017-03-11 12:03 | PN ---
Date/Time of Note Date/Time of Note DATE: 03/11/17 TIME: 12:01 Assessment/Plan VTE Prophylaxis VTE Prophylaxis Intervention: SCD's Lines/Catheters IV Catheter Type (from Nrs): Peripheral IV Assessment/Plan Chief Complaint/Hosp Course Assessment and plan 1. Small bowel obstruction as evident per CT scan of the abdomen. NG tube remains in place. Surgeon following. Tentative plan for small bowel follow- through. Continue on IV hydration and analgesics 2. Iron deficiency anemia. Continue on iron supplement. Of note patient did receive 2 units of PRBC on March 09, 2017 3. Uterine cancer. Patient is status post hysterectomy. Patient for outpatient follow-up for this issue DVT prophylaxis: SCD Disposition and plan: Continue the NG tube. Continue with analgesics. Plan for small bowel follow-through. Will follow up Discussed plan of care with Dr. Martinez Problems: Subjective 24 Hr Interval Summary Free Text/Dictation no apparent distress seen at this time. Only reports minimal pain on palpation of abdomen Exam/Review of Systems Vital Signs Vitals Vital Signs Date Time Temp Pulse Resp B/P Pulse Ox O2 Delivery O2 Flow Rate FiO2 03/11/17 07:34 97.9 70 20 107/64 100 03/09/17 21:48 Room Air Intake and Output 03/10/17 03/10/17 03/11/17 15:00 23:00 07:00 Intake Total 700 ml 1710 ml Output Total 850 ml 100 ml Balance -150 ml 1610 ml Exam General: No apparent distress seen Eyes: Equal round Neck: Supple nontender, no JVD Cardiac: Regular rate. S1-S2 auscultated Pulmonary: No wheezing rhonchi GI: Minimally tender upon palpation more on right upper abdominal quadrant Extremities: No edema seen bilateral lower extremities Skin: CDI Neurologic: AL O 4 Results Result Diagram: 03/11/17 0444 03/11/17 0444 Results 24 hrs Laboratory Tests Test 03/11/17 04:44 White Blood Count 6.9 Red Blood Count 4.27 Hemoglobin 9.9 L Hematocrit 33.1 L Mean Corpuscular Volume 77.5 L Mean Corpuscular Hemoglobin 23.2 L Mean Corpuscular Hemoglobin Concent 29.9 L Red Cell Distribution Width 21.3 H Platelet Count 327 Mean Platelet Volume 9.5 Neutrophils % 65.7 Lymphocytes % 23.7 Monocytes % 7.1 Eosinophils % 1.5 Basophils % 0.1 Nucleated Red Blood Cells % 0.0 Neutrophils # 4.5 Lymphocytes # 1.6 Monocytes # 0.5 Eosinophils # 0.1 Basophils # 0.0 Nucleated Red Blood Cells # 0.0 Sodium Level 143 Potassium Level 4.1 Chloride Level 112 H Carbon Dioxide Level 16 L Anion Gap 19 H Blood Urea Nitrogen 15 Creatinine 0.92 Glucose Level 57 L Calcium Level 9.0 Phosphorus Level 3.2 Magnesium Level 1.8 Medications Medications Current Medications Sodium Chloride (NS) 1,000 ml @ 100 mls/hr Q10H IV Last administered on 23:50; Admin Dose 100 MLS/HR; Start 03/08/17 at 05:56 Metoclopramide HCl (Reglan) 10 mg Q6H PRN IV NAUSEA AND/OR VOMITING; Start 03/08 at 06:00 Morphine Sulfate (morphine) 2 mg Q4H PRN IV SEVERE PAIN LEVEL 7-10 Last administered on 03/09/17 22:34; Admin Dose 2 MG; Start 03/08/17 at 06:00 Lorazepam (Ativan) 1 mg HS PRN PO INSOMNIA Last administered on 03/10/17 21:25 ; Admin Dose 1 MG; Start 03/08/17 at 21:30 Famotidine (Pepcid Iv) 20 mg BID IV Last administered on 03/10/17 21:25; Admin Dose 20 MG; Start 03/09/17 at 21:00 Phenol (Cepastat Lozenge) 1 lozenge Q3H PRN MT SORE THROAT Last administered on 03/09/17 18:52; Admin Dose 1 LOZENGE; Start 03/09/17 at 12:30 MIKI PICHARDO Mar 11, 2017 12:03
--- NOTE | 2017-03-11 14:27 | RADRPT ---
PROCEDURE: Small bowel follow-through. CLINICAL INDICATION: Abdomen pain. TECHNIQUE: Water-soluble contrast was administered via the nasogastric tube and several spot and o verhead radiographs of the abdomen were obtained. COMPARISON: Small bowel follow-through dated 03/24/2016. CT scan of the abdomen and pelvis dated 03/08/2017. FINDINGS: On the preliminary radiograph, the nasogastric tube tip is in the stomach. There are mild degenerat vida changes of the spine and scoliosis convex right. There is no small bowel displacement or mass. The small bowel folds are normal. There is no evidence of obstruction. Transit time is normal with contrast in the colon at 2 hours. At 4 hours, most of the contrast is in the distal small bowel and colon.. IMPRESSION: 1. Normal small bowel follow-through. RPTAT: QQ .Khang Polk MD, Date Time Electronically viewed and signed by .Khang Polk MD, on 03/11/2017 14:26 .R/
[2017-03-11] MEDS: SOD CHLORIDE 0.9% 1,000 ML IV SCH ×2 (16:05→23:56)
[2017-03-11 19:44] VITALS: BP 112/64; RESP 18
[2017-03-12] MEDS: SOD CHLORIDE 0.9% 1,000 ML IV SCH (01:10)
[2017-03-12 07:55] VITALS: BP 116/66; RESP 18
[2017-03-12] MEDS: FAMOTIDINE 20 MG INJ IV SCH (09:17)
--- NOTE | 2017-03-12 15:16 | PN ---
Date/Time of Note Date/Time of Note DATE: 03/12/17 TIME: 15:10 Assessment/Plan VTE Prophylaxis VTE Prophylaxis Intervention: SCD's Lines/Catheters IV Catheter Type (from Nrsg): Peripheral IV Assessment/Plan Chief Complaint/Hosp Course Assessment and plan 1. Small bowel obstruction as evident per CT scan of the abdomen. SBFT with no evidence of obstruction. advanced to liquids and tolerating well. advance diet as tolerated 2. Iron deficiency anemia. Continue on iron supplement. Of note patient did receive 2 units of PRBC on March 09, 2017 3. Uterine cancer. Patient is status post hysterectomy. Patient for outpatient follow-up for this issue DVT prophylaxis: SCD Disposition and plan: advance diet as tolerated. d/c when cleared by consultants Discussed plan of care with Dr. Martinez Problems: Subjective 24 Hr Interval Summary Free Text/Dictation no s/s of distress. reports only minimal abd pain at this time Exam/Review of Systems Vital Signs Vitals Vital Signs Date Time Temp Pulse Resp B/P Pulse Ox O2 Delivery O2 Flow Rate FiO2 03/12/17 07:55 97.9 65 18 116/66 98 03/09/17 21:48 Room Air Intake and Output 03/11/17 03/11/17 03/12/17 14:59 22:59 06:59 Intake Total 1200 ml 1540 ml Output Total 800 ml Balance 400 ml 1540 ml Exam General: comfortable at present Eyes: Equal round, anicteric sclerae Neck: Supple nontender, no JVD Cardiac: Regular rate. S1-S2 auscultated Pulmonary: No wheezing rhonchi GI: Minimally tender upon palpation more on right upper abdominal quadrant Extremities: No edema seen bilateral lower extremities Skin: CDI Neurologic: AL O 4 Results Result Diagram: 03/11/17 0444 03/11/17 0444 Medications Medications Current Medications Metoclopramide HCl (Reglan) 10 mg Q6H PRN IV NAUSEA AND/OR VOMITING; Start 03/08 at 06:00 Morphine Sulfate (morphine) 2 mg Q4H PRN IV SEVERE PAIN LEVEL 7-10 Last administered on 03/09/17 22:34; Admin Dose 2 MG; Start 03/08/17 at 06:00 Lorazepam (Ativan) 1 mg HS PRN PO INSOMNIA Last administered on 03/10/17 21:25 ; Admin Dose 1 MG; Start 03/08/17 at 21:30 Famotidine (Pepcid Iv) 20 mg BID IV Last administered on 03/12/17 09:17; Admin Dose 20 MG; Start 03/09/17 at 21:00 Phenol (Cepastat Lozenge) 1 lozenge Q3H PRN MT SORE THROAT Last administered on 03/09/17 18:52; Admin Dose 1 LOZENGE; Start 03/09/17 at 12:30 MIKI PICHARDO Mar 12, 2017 15:16
--- NOTE | 2017-03-12 18:21 | PN ---
DATE: 03/12/2017 SUBJECTIVE: , has had 2 bowel movements today, has tolerated a full liquid diet. No fever. OBJECTIVE: VITAL SIGNS: Temperature 97.9, heart rate 65, respirations 18, blood pressure 116/66, saturation 98 % on room air. ABDOMEN: Soft, bowel sounds are present. As was mentioned yesterday, the small bowel series revealed that there is no evidence of obstruction , normal small bowel follow-through. LABORATORY DATA: Not done today. ASSESSMENT: The patient is a 61-year-old female status post hysterectomy, bilateral salpingo-oophor ectomy for endometrial cancer, and radiation and chemotherapy, who has presented a couple of times w ith a small-bowel obstruction which resolves after a few days being in the hospital, sometimes with NG tube. At this time, the same after getting a diagnostic Gastrografin small bowel series, there i s no evidence of obstruction. The patient has had bowel movements, a total of 4 since yesterday. PLAN: To advance diet to mechanical soft today and if tolerated, the patient can be discharged home tomorrow, Saturday03/13/2017 to go home. Dictated By: YASSINE SANTA MD PS/NTS Conf#: [id number] DID#: [id number]
[2017-03-12 19:56] VITALS: BP 106/69; RESP 18
[2017-03-12] MEDS: FAMOTIDINE 20 MG TAB PO SCH (20:39)
[2017-03-12] MEDS: LORAZEPAM 1 MG TAB PO PRN (20:39)
[2017-03-13 08:02] VITALS: BP 109/64; RESP 17
[2017-03-13] MEDS: FAMOTIDINE 20 MG TAB PO SCH (08:51)
[2017-03-13] MEDS ORDERED: TRAM50TA2 PO (11:30)
[2017-03-13] MEDS ORDERED: BENZ1LOZ4 MT (11:30)
[2017-03-13] MEDS ORDERED: FER325 PO (11:31)
--- NOTE | 2017-03-13 11:34 | PDOCDIS ---
Discharge Instructions DIAGNOSIS Discharge Diagnosis: 1. small bowel obstruction 2. iron deficiency anemia CONDITION Patient Condition: Stable HOME CARE INSTRUCTIONS: Special Diet: MECHANICAL SOFT FOLLOW UP/APPOINTMENTS Appointments 1. Follow up with Dr. Matteo Avalos in one week 2. Follow up with your primary care provider in 1-2 weeks MIKI PICHARDO Mar 13, 2017 11:34
[2017-03-13] MEDS ORDERED: FERROUS SULFATE (EC) 325 MG TAB PO SCH (13:00)
--- NOTE | 2017-03-13 13:59 | PN ---
DATE: 03/13/2017 SUBJECTIVE: Feels good. No abdominal pain. Has tolerated a soft diet. Today has had 3 bowel move ments and were solid. OBJECTIVE: VITAL SIGNS: Temperature 98.2, pulse 75, respirations 17, blood pressure 109/64, saturation 99% on room air. GENERAL: Soft, bowel sounds normal. No tenderness. ASSESSMENT: The patient is status post laparotomy, total abdominal hysterectomy and bilateral salpi babin-oophorectomy for endometrial cancer, and chemotherapy and radiotherapy, presented for a second o r third time with a small-bowel obstruction. In the hospital, the small-bowel obstruction was resol manjeet. The small bowel series did not show any evidence of obstruction. The patient advised about di et and to use a lot of vegetables and fruits and also drink enough water. If any problem, come back to the emergency room. Today the patient is going to go home and will be discharged. Follow up wi th the primary doctor. Dictated By: YASSINE RAJUPT/MARYBETH Conf#: [id number] DID#: [id number]
--- NOTE | 2017-03-17 17:23 | DS ---
Date/Time of Note Date/Time of Note DATE: 03/17/17 TIME: 17:18 Discharge Summary Admission/Discharge Info Admit Date/Time Mar 08, 2017 at 05:42 Discharge Date/Time Mar 13, 2017 at 13:25 Final Diagnosis 1. Small bowel obstruction 2. Iron deficiency anemia. 3. Uterine cancer. Patient Condition: Stable Consults 1. Dr. Jovi Hatch 2. Dr. 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 Patient did report her pain was initially associated with consumption of food. She did report she had similar symptoms like this when she had a previous small bowel obstruction. She was placed on NG tube. She also has not had a colonoscopy in June 2016 with no abnormal findings. She denied any melena or hematochezia. Patient was seen by general surgeon for this. She did have small bowel follow-through with no evidence of obstruction. We did eventually advance her diet and she did tolerate oral intake well. During her course of stay she did improve. She was otherwise optimized medically. She was continued on iron for her iron deficiency anemia and of note she did receive 2 units of PRBC on March 09 for her worse anemia. She did respond well to this treatment. She was advised for outpatient follow- up with her oncologist for her history of uterine cancer. The plan of care was discussed with the patient and patient did verbalize understanding. On the day of discharge patient was in stable condition Discussed plan of care with Dr. Martinez Discharge process 40 minutes Home Meds Active Scripts Ferrous Sulfate* (Ferrous Sulfate*) 325 Mg Tabec, 325 MG PO BID, #100 TAB Prov:MIKI PICHARDO 03/13/17 Benzocaine/Menthol (SORE THROAT LOZENGE) 1 Each Lozenge, 1 LOZENGE MT Q3H Y for SORE THROAT, #30 LOZENGE Prov:MIKI PICHARDO 03/13/17 Tramadol HCl (Tramadol HCl) 50 Mg Tablet, 50 MG PO BID Y for PAIN LEVEL 6-10, # 20 TAB Prov:MIKI PICHARDO 03/13/17 Docusate Sodium* (Colace*) 100 Mg Capsule, 100 MG PO BID, #60 CAP Prov:STEVENSON,ZUHAIR V. VICE PRESIDENT OF SOFTWARE DEVELOPMENT 07/25/16 Reported Medications Lorazepam* (Lorazepam*) 1 Mg Tablet, 1 MG PO HS Y for ANXIETY, #30 TAB 07/21/16 Omeprazole* (Omeprazole*) 20 Mg Capsule.dr, 20 MG PO DAILY, #30 CAP 04/27/16 Gabapentin* (Gabapentin*) 300 Mg Capsule, 300 MG PO BID, #60 CAP 04/25/16 Zolpidem Tartrate* (Zolpidem Tartrate*) 10 Mg Tablet, 10 MG PO QHS Y for INSOMNIA, #30 TAB 03/23/16 Follow-up Plan CONDITION Patient Condition: Stable HOME CARE INSTRUCTIONS: Special Diet: MECHANICAL SOFT FOLLOW UP/APPOINTMENTS Appointments 1. Follow up with Dr. Matteo Avalos in one week 2. Follow up with your primary care provider in 1-2 weeks MIKI PICHARDO Mar 17, 2017 17:23
== END 2017-03-13 13:25 | disposition home or self-care (01) | DRG 390 ==
LOC: E/R 02:37 → MS1 05:42
PROVIDERS: ADMIT Family Medicine; ATTEND Family Medicine
PROC: 30233N1 Transfusion of Nonautologous Red Blood Cells into Peripheral Vein, Percutaneous Approach (ICD-10-PCS; principal; 2017-03-09)
DX: K56.60 Unspecified intestinal obstruction (principal); N26.1 Atrophy of kidney (terminal); E87.6 Hypokalemia; D72.819 Decreased white blood cell count, unspecified; D64.9 Anemia, unspecified; D50.9 Iron deficiency anemia, unspecified; Z85.89 Personal history of malignant neoplasm of other organs and systems; Z90.710 Acquired absence of both cervix and uterus; Z90.722 Acquired absence of ovaries, bilateral; Z90.79 Acquired absence of other genital organ(s); Z92.21 Personal history of antineoplastic chemotherapy; Z92.3 Personal history of irradiation; Z85.42 Personal history of malignant neoplasm of other parts of uterus; K44.9 Diaphragmatic hernia without obstruction or gangrene
CPT/HCPCS: 36415; 36430; 74176; 74250; 80048; 80053; 80061; 82270; 82652; 82728; 83036; 83540; 83690; 83735; 84100; 84439; 84443; 85014; 85018; 85025; 85610; 85730; 86850; 86900; 86901; 86920; 96374; 96375; 96376; J1940; J2270; J2405; J2543; J2916; J3480; J7030; J7040; P9016

== ENCOUNTER 2017-04-12 11:41 | Inpatient (IN) | payer BC ==
[~2017-04-12] VITALS: Ht 12.8 cm; Wt 57.8 kg
[~2017-04-12 11:41] MED LIST changes: +BENZ1LOZ4 MT; +FER325 PO
[2017-04-12] MEDS ORDERED: ONDANSETRON 4 MG INJ IV STA (12:13)
[2017-04-12] MEDS ORDERED: FAMOTIDINE 20 MG INJ IV STA (12:13)
[2017-04-12] MEDS ORDERED: SOD CHLORIDE 0.9% 1,000 ML IV STA (12:13)
[2017-04-12] MEDS ORDERED: morphine 4 MG/ML VIAL IV STA ×2 (12:13→14:30)
--- NOTE | 2017-04-12 12:16 | ERA ---
ER Documentation Chief Complaint Date/Time DATE: 04/12/17 TIME: 12:14 Chief Complaint CENTRAL AP SINCE THIS AM. VOMITING NO DIARRHEA NO DYSURIA PER PT HPI Patient is a 61-year-old female who presents with sudden onset, constant, severe , epigastric and right upper quadrant abdominal pain for several hours. Pain is associated with vomiting of yellow emesis. No diarrhea, no fever. Patient complains of bilateral back pain. Patient states that she had a normal bowel movement this morning. Records show the patient has a history of prior small bowel obstructions. She states that she has had the same pain for years intermittently. ROS All systems reviewed and are negative except as per history of present illness. Medications Home Meds Active Scripts Ferrous Sulfate* (Ferrous Sulfate*) 325 Mg Tabec, 325 MG PO BID, #100 TAB Prov:MIKI PICHARDO 03/13/17 Tramadol HCl (Tramadol HCl) 50 Mg Tablet, 50 MG PO BID Y for PAIN LEVEL 6-10, # 20 TAB Prov:MIKI PICHARDO 03/13/17 Reported Medications Omeprazole* (Omeprazole*) 20 Mg Capsule.dr, 20 MG PO DAILY, #30 CAP 04/27/16 Gabapentin* (Gabapentin*) 300 Mg Capsule, 300 MG PO BID, #60 CAP 04/25/16 Zolpidem Tartrate* (Zolpidem Tartrate*) 10 Mg Tablet, 10 MG PO QHS Y for INSOMNIA, #30 TAB 03/23/16 Discontinued Reported Medications Lorazepam* (Lorazepam*) 1 Mg Tablet, 1 MG PO HS Y for ANXIETY, #30 TAB 07/21/16 Discontinued Scripts Benzocaine/Menthol (SORE THROAT LOZENGE) 1 Each Lozenge, 1 LOZENGE MT Q3H Y for SORE THROAT, #30 LOZENGE Prov:MIKI PICHARDO 03/13/17 Docusate Sodium* (Colace*) 100 Mg Capsule, 100 MG PO BID, #60 CAP Prov:ZUHAIR STEVENSON V. TESTER WAFER SUBSTRATE 07/25/16 Allergies Allergies: Coded Allergies: No Known Allergy (Unverified , 07/21/16) PMhx/Soc Past medical history: Small bowel obstruction Past surgical history: Hysterectomy, abdominal hernia surgery Social history: No tobacco alcohol or illicit drugs History of Surgery: Yes (Abdominal surgery) Anesthesia Reaction: No Hx Neurological Disorder: No Hx Respiratory Disorders: No Hx Cardiac Disorders: No Hx Psychiatric Problems: No Hx Miscellaneous Medical Probl: No (Ovarian Cancer 2010, in Remission) Hx Alcohol Use: No Hx Substance Use: No Hx Tobacco Use: No Smoking Status: Never smoker FmHx Family History: No coronary disease, No diabetes Physical Exam Vitals Vital Signs Date Time Temp Pulse Resp B/P Pulse Ox O2 Delivery O2 Flow Rate FiO2 04/12/17 12:13 67 23 125/101 100 Room Air 04/12/17 11:44 98.1 72 20 118/84 100 Physical Exam Const: Alert, in mild distress Head: Atraumatic Eyes: Normal Conjunctiva, no pallor, no icterus ENT: Normal External Ears, Nose and Mouth. Moist mucous membranes Neck: Full range of motion..~ No meningismus. Resp: Clear to auscultation bilaterally, no wheezes, no rales Cardio: Regular rate and rhythm, no murmurs Abd: Soft, tender in right upper quadrant, no guarding, no rebound, non distended. Normal bowel sounds Skin: No petechiae or rashes Back: No midline or flank tenderness Ext: No cyanosis, or edema Neur: Awake and alert, cranial nerves II through XII intact bilaterally, strength and sensation intact in 4 extremities. Psych: Normal Mood and Affect Result Diagram: 04/12/17 1220 04/12/17 1220 Results 24 hrs Laboratory Tests Test 04/12/17 12:20 White Blood Count 8.710^3/ul Red Blood Count 4.8310^6/ul Hemoglobin 11.9g/dl Hematocrit 38.7% Mean Corpuscular Volume 80.1fl Mean Corpuscular Hemoglobin 24.6pg Mean Corpuscular Hemoglobin Concent 30.7g/dl Red Cell Distribution Width % Platelet Count 66365^3/UL Mean Platelet Volume 10.2fl Neutrophils % 79.4% Lymphocytes % 15.7% Monocytes % 3.9% Eosinophils % 0.6% Basophils % 0.2% Nucleated Red Blood Cells % 0.0/100WBC Neutrophils # 6.910^3/ul Lymphocytes # 1.410^3/ul Monocytes # 0.310^3/ul Eosinophils # 0.110^3/ul Basophils # 0.010^3/ul Nucleated Red Blood Cells # 0.010^3/ul Prothrombin Time 13.2Sec Prothrombin Time Ratio 1.0 INR International Normalized Ratio 1.00 Activated Partial Thromboplast Time 30.2Sec Sodium Level 142mmol/L Potassium Level 3.4mmol/L Chloride Level 103mmol/L Carbon Dioxide Level 23mmol/L Anion Gap 19 Blood Urea Nitrogen 20mg/dl Creatinine 0.90mg/dl Glucose Level 134mg/dl Calcium Level 9.9mg/dl Total Bilirubin 0.3mg/dl Direct Bilirubin 0.00mg/dl Indirect Bilirubin 0.3mg/dl Aspartate Amino Transf (AST/SGOT) 43IU/L Alanine Aminotransferase (ALT/SGPT) 33IU/L Alkaline Phosphatase 96IU/L Total Protein 8.3g/dl Albumin 4.5g/dl Globulin 3.80g/dl Albumin/Globulin Ratio 1.18 Lipase 123U/L Current Medications Medications (Trade) Dose Ordered Sig/Gregoria Route PRN Reason Start Time Stop Time Status Last Admin Dose Admin Sodium Chloride (NS) 1,000 ml @ 1,000 mls/hr Q1H STAT IV 04/12/17 12:13 04/12/17 13:12 DC 04/12/17 12:26 Morphine Sulfate (morphine) 4 mg ONCE STAT IV 04/12/17 12:13 04/12/17 12:15 DC 04/12/17 12:27 Ondansetron HCl (Zofran Inj) 4 mg ONCE STAT IV 04/12/17 12:13 04/12/17 12:15 DC 04/12/17 12:26 Famotidine (Pepcid Iv) 20 mg ONCE STAT IV 04/12/17 12:13 04/12/17 12:15 DC 04/12/17 12:28 IV Flush 10 ml 10 ml STK-MED ONCE .ROUTE 04/12/17 13:20 04/12/17 13:21 DC 04/12/17 13:39 Sodium Chloride (NS) 100 ml @ ud STK-MED ONCE .ROUTE 04/12/17 13:20 04/12/17 13:21 DC 04/12/17 13:40 Iohexol (Omnipaque 300mg/ ml) 150 ml STK-MED ONCE .ROUTE 04/12/17 13:20 04/12/17 13:21 DC 04/12/17 13:40 Morphine Sulfate (morphine) 4 mg ONCE STAT IV 04/12/17 14:30 04/12/17 14:32 DC Procedures/MDM EKG read by me: Time 1343, rate 66 Rhythm: Normal sinus [place]: Normal Intervals: Normal ST-T waves: Anterior T-wave inversions Ectopy: No Q-waves: No Impression: Anterior T-wave inversions are nonspecific for ischemia. MDM: Patient is a 61-year-old female with history of multiple prior small bowel obstructions who presents with acute abdominal pain, and is found to have small bowel obstruction on CT scan. There is no sign of perforation. The patient is hemodynamically stable. I discussed the case with Dr. Ramirez, surgeon on-call, who recommends placing an NG tube, admitting the patient and performing small bowel follow-through tomorrow morning. Patient has received pain control with morphine and nausea control with Zofran. Awaiting UA. Discussed with Dr. Martinez, who will admit the patient. Departure Diagnosis: Primary Impression: Bowel obstruction Qualified Code: K56.5 - Intestinal adhesions with obstruction Condition: Stable LUIS EDUARDO AGUILAR MD April 12, 2017 12:16
[2017-04-12 12:48] LABS: ADD SCAN DIFF NO
[2017-04-12 12:51] LABS: ABNORMAL IP MESSAGE 1; BASOPHILS % 0.2 % (0.0-2.0); EOSINOPHILS # 0.1 10^3/ul (0.0-0.5); EOSINOPHILS % 0.6 % (0.0-7.0); HEMATOCRIT 38.7 % (37.0-47.0); HEMOGLOBIN 11.9 g/dl (12.0-16.0); LYMPHOCYTES # 1.4 10^3/ul (0.8-2.9); LYMPHOCYTES % 15.7 % (15.0-51.0); MEAN CORPUSCULAR HEMOGLOBIN 24.6 pg (29.0-33.0); MEAN CORPUSCULAR HGB CONC 30.7 g/dl (32.0-37.0); MEAN CORPUSCULAR VOLUME 80.1 fl (82.0-101.0); MEAN PLATELET VOLUME 10.2 fl (7.4-10.4); MONOCYTE # 0.3 10^3/ul (0.3-0.9); MONOCYTES % 3.9 % (0.0-11.0); NEUTROPHIL # 6.9 10^3/ul (1.6-7.5); NEUTROPHILS % 79.4 % (39.0-77.0); PLATELET COUNT 305 10^3/UL (140-415); RED BLOOD COUNT 4.83 10^6/ul (4.20-5.40); WHITE BLOOD COUNT 8.7 10^3/ul (4.8-10.8)
[2017-04-12 13:11] LABS: ALBUMIN 4.5 g/dl (3.3-4.9)
[2017-04-12 13:12] LABS: POTASSIUM 3.4 mmol/L (3.5-5.1)
[2017-04-12 13:14] LABS: ALBUMIN/GLOBULIN RATIO 1.18; BILIRUBIN,INDIRECT 0.3 mg/dl (0-1.1); BILIRUBIN,TOTAL 0.3 mg/dl (0.2-1.3); CALCIUM 9.9 mg/dl (8.4-10.2); CREATININE 0.9 mg/dl (0.44-1.00); TOTAL PROTEIN 8.3 g/dl (6.1-8.1)
[2017-04-12] MEDS ORDERED: SOD CHLORIDE 0.9% 100 ML ONE (13:20)
[2017-04-12] MEDS ORDERED: IOHEXOL 300MG/ML 150 ML BTL ONE (13:20)
--- NOTE | 2017-04-12 13:49 | RADRPT ---
PROCEDURE: CT Abdomen and Pelvis with contrast. CLINICAL INDICATION: Abdominal and pelvic pain. History of ovarian cancer in 2007. History of to oswaldo hysterectomy TECHNIQUE: CT scan of the abdomen and pelvis with contrast was performed. The patient was scanned following the uncomplicated intravenous administration of 100 cc of Omnipaque-300. Coronal and sag ittal reformatted images were obtained from the axial source images. Images were reviewed on a high- resolution PACS workstation. Total exam DLP is 415.55 mGy-cm. CTDIvol is 7.63 mGy. One or more of the following dose reduction techniques were used: Automated exposure control, adjustment of the mA and/or kV according to patient size, use of iterative reconstruction technique. COMPARISON: CT scan of the abdomen and pelvis dated 03/08/2017. FINDINGS: The lung bases are normal. There is no pleural effusion. The liver is normal in size and attenuation. There is no focal hepatic lesion. The gallbladder and bile ducts are normal. The spleen is normal in size. There is no focal splenic lesion. Both adrenals are normal with no enlargement or mass. The pancreas is unremarkable with no mass or evidence of pancreatitis. The right kidney is normal. The left kidney is atrophic. There is no renal mass or hydronephrosis. The abdominal aorta is not dilated. There is no retroperitoneal lymphadenopathy or mass. There is no pelvic lymphadenopathy or mass. The bladder and distal ureters are normal. The appendix is well seen and appears normal. There is small bowel obstruction with a transition point in the mid abdomen. There is dilated small bowel in the upper and right abdomen with fecalization of stool. Dilated small bowel measures up t o 4.4 cm in diameter. There is no free fluid or free gas. The uterus and ovaries are surgically absent. There are mild degenerative changes of the spine. There is no fracture or lytic lesion. IMPRESSION: 1. Atrophic left kidney. 2. Normal appendix. 3. Small bowel obstruction with transition point in the mid abdomen. 4. No evidence of perforation. 5. Status post hysterectomy. 6. Mild degenerative changes of the spine. RPTAT: QQ .Khang Polk MD, MD Date Time Electronically viewed and signed by .Khang Polk MD, MD on 04/12/2017 13:48 .R/
[2017-04-12 14:10] LABS: PROTIME 13.2 Sec (12.2-14.2)
[2017-04-12 14:12] LABS: PARTIAL THROMBOPLASTIN TIME 30.2 Sec (25.0-35.0)
[2017-04-12] MEDS ORDERED: ONDANSETRON 4 MG INJ IV PRN ×2 (15:00→15:30)
[2017-04-12] MEDS ORDERED: LIDOCAINE 2% VISC 15 ML CUP PO ONE (15:00)
[2017-04-12] MEDS ORDERED: ACETAMINOPHEN 325 MG TAB PO PRN ×2 (15:00→15:30)
[2017-04-12] MEDS ORDERED: HYDROCODONE/APAP (5/325) TAB PO PRN (15:30)
[2017-04-12] MEDS ORDERED: NITROGLYCERIN (SL) 0.4 MG TAB SL PRN (15:30)
[2017-04-12] MEDS ORDERED: NA PHOSPHATE/BIPHOS 133 ML ENEMA PR PRN (15:30)
[2017-04-12] MEDS ORDERED: ALBUTEROL/IPRATROPIUM (NEB) 3 ML AMP HHN PRN (15:30)
[2017-04-12] MEDS ORDERED: MAGNESIUM HYDROXIDE 30ML CUP PO PRN (15:30)
[2017-04-12] MEDS ORDERED: hydrALAzine 20 MG INJ IV PRN (15:30)
[2017-04-12] MEDS ORDERED: morphine 2 MG INJ IV PRN (15:30)
[2017-04-12] MEDS ORDERED: DOCUSATE SODIUM 100 MG CAP PO PRN (15:30)
[2017-04-12] MEDS ORDERED: LORAZEPAM 2 MG INJ IV PRN (15:30)
[2017-04-12 15:44] LABS: ADD UMIC YES; URINE BILIRUBIN (Dip) NEGATIVE (NEGATIVE); URINE BLOOD (Dip) NEGATIVE (NEGATIVE); URINE COLOR LT. YELLOW (YELLOW); URINE GLUCOSE (Dip) NEGATIVE (NEGATIVE); URINE KETONES (Dip) TRACE (NEGATIVE); URINE LEUKOCYTE ESTERASE (Dip) TRACE (NEGATIVE); URINE NITRITE (Dip) NEGATIVE (NEGATIVE); URINE TOTAL PROTEIN (Dip) NEGATIVE (NEGATIVE); URINE UROBILINOGEN (Dip) 0.2 E.U./dL (0.1-1.0)
[2017-04-12 15:51] LABS: URINE RBCS 0-2 /HPF (0)
[2017-04-12 15:52] LABS: BACTERIA,URINE FEW
[2017-04-12] MEDS ORDERED: NACL 0.9% 3 ML SYG IV SCH (16:00)
--- NOTE | 2017-04-12 16:17 | HP ---
DATE OF ADMISSION: 04/12/2017 CHIEF COMPLAINT: Abdominal pain. HISTORY OF PRESENT ILLNESS: A 61-year-old female with a prior history of recurrent small-bowel obst ructions, ovarian cancer in 2009, in remission, status post hysterectomy in the past, who presents w ith abdominal pain that began of sudden onset this morning. She says she has been having constant p ain for the last few months, but it became more severe this morning, epigastric in nature, radiating to the right upper quadrant. She had some vomiting symptoms that were nonbilious, nonbloody. Othe rwise no chest pain or shortness of breath. No upper or lower GI bleeding. No diarrhea, no constip ation, no fevers or chills. She has been passing gas, she says. The pain has been going to her back as well, so she has some low back pain. The patient was last here at our hospital from 03/08/2017 to 03/13/2017 for a small-bowel obstruction. At that time it was treated conservatively. PAST MEDICAL HISTORY: As stated above. ALLERGIES: NO KNOWN DRUG ALLERGIES. HOME MEDICATIONS: 1. Ferrous sulfate 325 mg b.i.d. 2. Gabapentin 300 mg b.i.d. 3. Tramadol 50 mg b.i.d. p.r.n. 4. Ambien 10 mg at bedtime p.r.n. 5. Omeprazole 20 mg daily. PAST SURGICAL HISTORY: Again, she has had a hysterectomy in the past. Abdominal hernia surgery in the past as well. SOCIAL HISTORY: Negative for smoking, drinking, or IV drug abuse. FAMILY HISTORY: Noncontributory. PHYSICAL EXAMINATION: VITAL SIGNS: Today T-max is 98.1, pulse 67 to 72, respirations 20 to 23, blood pressure 118 to 125 s ystolic over 84 to 101 diastolic, saturating 100% on room air. GENERAL: The patient is lying in bed, answering questions appropriately, in no acute distress. NG tube in place. HEENT: Pupils are equal, round, and react to light. Extraocular muscles are intact. NECK: Supple. No thyromegaly. LUNGS: Clear to auscultation bilaterally. CARDIOVASCULAR: S1, S2 heard. No rubs or gallops. ABDOMEN: Mild tenderness to palpation in the right upper quadrant area. No rebound or guarding. N ormal bowel sounds. MUSCULOSKELETAL: No lower extremity edema bilaterally. NEUROLOGIC: No focal deficits. LABORATORY: WBC 8.7, hemoglobin 11.9, hematocrit 38.7, platelets 305. The comprehensive metabolic panel is normal except the potassium is 3.4. Lipase is 123, it is normal. UA shows trace leukocyte esterase positive. CT abdomen and pelvis today does show an atrophic left kidney, a normal appendi x, small-bowel obstruction with a transition point in the mid abdomen. No evidence of any perforati on. Status post hysterectomy. Mild degenerative changes of the spine. ASSESSMENT AND PLAN: A 61-year-old female coming in with a recurrent small-bowel obstruction. 1. Small-bowel obstruction. Admit the patient to the hospital, possibly the med/surg floor. The eneral surgery team has already been evaluated the patient apparently. They want a small bowel follo w-through. Will check a TSH, A1c, and lipid panel. Continue IV fluids, antiemetic medications, and pain control medications as well. 3. History of ovarian cancer in the past. Continue to monitor for now. No present issues. 4. Gastrointestinal prophylaxis. PPI. 5. Deep venous thrombosis prophylaxis. Heparin subcutaneously. 6. Mild urinary tract infection. Will put her on Rocephin for now. Follow up final culture result s. Dictated By: MAGDALENA PALMER/MARYBETH Conf#: [id number] DID#: [id number]
[2017-04-12] MEDS: SOD CHLORIDE 0.45% 1,000 ML IV SCH (17:26)
[2017-04-12] MEDS: CEFTRIAXONE 1 GM/50 ML (PMX) 50 ML IVPB SCH (17:26)
[2017-04-12] MEDS ORDERED: RANI300T PO (18:32)
[2017-04-12] MEDS ORDERED: SERT50TA6 PO (18:35)
[2017-04-12 20:26] VITALS: PULSE 59
[2017-04-12] MEDS: HEPARIN 5,000 UNIT/0.5 ML VIAL SC SCH (21:32)
[2017-04-13] MEDS: SOD CHLORIDE 0.45% 1,000 ML IV SCH ×2 (04:48→07:17)
[2017-04-13] MEDS: PANTOPRAZOLE 40 MG INJ IV SCH (05:23)
[2017-04-13 07:49] VITALS: BP 112/74; RESP 17
[2017-04-13 08:48] LABS: CHOL/HDL RATIO 2.1 RATIO; THYROID STIMULATING HORMONE 2.02 MIU/L (0.465-4.680)
[2017-04-13 09:09] LABS: CALCIUM 8.8 mg/dl (8.4-10.2); CREATININE 0.98 mg/dl (0.44-1.00); MAGNESIUM 2.1 mg/dl (1.7-2.5); PHOSPHORUS 3.6 mg/dl (2.5-4.9); POTASSIUM 3.8 mmol/L (3.5-5.1)
[2017-04-13 09:31] LABS: ADD SCAN DIFF NO
[2017-04-13 09:33] LABS: ABNORMAL IP MESSAGE 1; BASOPHILS % 0.6 % (0.0-2.0); EOSINOPHILS # 0.1 10^3/ul (0.0-0.5); EOSINOPHILS % 2.1 % (0.0-7.0); HEMATOCRIT 33.7 % (37.0-47.0); HEMOGLOBIN 10.5 g/dl (12.0-16.0); LYMPHOCYTES # 1.1 10^3/ul (0.8-2.9); LYMPHOCYTES % 32.9 % (15.0-51.0); MEAN CORPUSCULAR HEMOGLOBIN 25.2 pg (29.0-33.0); MEAN CORPUSCULAR HGB CONC 31.2 g/dl (32.0-37.0); MEAN PLATELET VOLUME 10.4 fl (7.4-10.4); MONOCYTE # 0.3 10^3/ul (0.3-0.9); MONOCYTES % 8.2 % (0.0-11.0); NEUTROPHIL # 1.9 10^3/ul (1.6-7.5); NEUTROPHILS % 55.9 % (39.0-77.0); PLATELET COUNT 315 10^3/UL (140-415); RED BLOOD COUNT 4.16 10^6/ul (4.20-5.40); RED CELL DISTRIBUTION WIDTH 25.7 % (11.5-14.5); WHITE BLOOD COUNT 3.4 10^3/ul (4.8-10.8)
[2017-04-13] MEDS ORDERED: DIATR MEGLU/DIATRIZOATE SODIUM 120 ML BTL ONE (10:05)
--- NOTE | 2017-04-13 12:07 | PN ---
Date/Time of Note Date/Time of Note DATE: 04/13/17 TIME: 12:05 Assessment/Plan VTE Prophylaxis VTE Prophylaxis Intervention: heparin Lines/Catheters IV Catheter Type (from [facility] Peripheral IV Assessment/Plan Chief Complaint/Hosp Course ASSESSMENT AND PLAN: 61-year-old female coming in with a recurrent small-bowel obstruction. 1. Small-bowel obstruction - recurrent - continue med/surg floor care. The general surgery team consulted. - f/u small bowel follow-through. W - Continue IV fluids, antiemetic medications, and pain control medications as well. 3. History of ovarian cancer in the past. Continue to monitor for now. No present issues. 4. Gastrointestinal prophylaxis. PPI. 5. Deep venous thrombosis prophylaxis. Heparin subcutaneously. 6. Mild urinary tract infection. Will put her on Rocephin for now. Follow up final culture results. Problems: Subjective 24 Hr Interval Summary Free Text/Dictation Pt getting SBFT presently. Exam/Review of Systems Vital Signs Vitals Vital Signs Date Time Temp Pulse Resp B/P Pulse Ox O2 Delivery O2 Flow Rate FiO2 04/13/17 07:49 98.7 68 17 112/74 98 04/12/17 20:26 Room Air Intake and Output 04/12/17 04/12/17 04/13/17 15:00 23:00 07:00 Intake Total 1000 ml 850 ml Balance 1000 ml 850 ml Exam PE: - unable to perform presently b/c pt off floor at procedure Results Result Diagram: 04/13/17 0537 04/13/17 0537 Results 24 hrs Laboratory Tests Test 04/12/17 12:20 04/12/17 15:30 04/13/17 05:37 White Blood Count 8.7 # 3.4 #L Red Blood Count 4.83 4.16 L Hemoglobin 11.9 #L 10.5 L Hematocrit 38.7 33.7 L Mean Corpuscular Volume 80.1 L 81.0 L Mean Corpuscular Hemoglobin 24.6 L 25.2 L Mean Corpuscular Hemoglobin Concent 30.7 L 31.2 L Red Cell Distribution Width 25.7 #H Platelet Count 305 315 Mean Platelet Volume 10.2 10.4 Neutrophils % 79.4 H 55.9 Lymphocytes % 15.7 32.9 Monocytes % 3.9 8.2 Eosinophils % 0.6 2.1 Basophils % 0.2 0.6 Nucleated Red Blood Cells % 0.0 0.0 Neutrophils # 6.9 1.9 Lymphocytes # 1.4 1.1 Monocytes # 0.3 0.3 Eosinophils # 0.1 0.1 Basophils # 0.0 0.0 Nucleated Red Blood Cells # 0.0 0.0 Prothrombin Time 13.2 Prothrombin Time Ratio 1.0 INR International Normalized Ratio 1.00 Activated Partial Thromboplast Time 30.2 Sodium Level 142 141 Potassium Level 3.4 L 3.8 Chloride Level 103 110 Carbon Dioxide Level 23 26 Anion Gap 19 H 9 # Blood Urea Nitrogen 20 13 Creatinine 0.90 0.98 Glucose Level 134 91 # Calcium Level 9.9 8.8 Total Bilirubin 0.3 Direct Bilirubin 0.00 Indirect Bilirubin 0.3 Aspartate Amino Transf (AST/SGOT) 43 Alanine Aminotransferase (ALT/SGPT) 33 Alkaline Phosphatase 96 Total Protein 8.3 H Albumin 4.5 Globulin 3.80 H Albumin/Globulin Ratio 1.18 Lipase 123 Free Thyroxine 0.88 Urine Color LT. YELLOW Urine Clarity CLEAR Urine pH 7.5 Urine Specific [place] 1.010 Urine Ketones TRACE H Urine Nitrite NEGATIVE Urine Bilirubin NEGATIVE Urine Urobilinogen 0.2 E.U./dL Urine Leukocyte Esterase TRACE H Urine Microscopic RBC 0-2 Urine Microscopic WBC 10-25 Urine Epithelial Cells FEW Urine Bacteria FEW Urine Hemoglobin NEGATIVE Urine Glucose NEGATIVE Urine Total Protein NEGATIVE Hemoglobin A1c 5.1 Phosphorus Level 3.6 Magnesium Level 2.1 Triglycerides Level 96 Cholesterol Level 150 LDL Cholesterol, Calculated 61 HDL Cholesterol 70 Cholesterol/HDL Ratio 2.1 Thyroid Stimulating Hormone (TSH) 2.020 Medications Medications Current Medications Ondansetron HCl (Zofran Inj) 4 mg Q6H PRN IV NAUSEA AND/OR VOMITING; Start 11/17 at 15:30 Acetaminophen (Tylenol Tab) 650 mg Q6H PRN PO PAIN LEVEL 1-3 OR FEVER; Start at 15:30 Acetaminophen/ Hydrocodone Bitart ([place] (5/325)) 1 tab Q6H PRN PO MODERATE PAIN LEVEL 4-6; Start 04/12/17 at 15:30 Morphine Sulfate (morphine) 2 mg Q4H PRN IV SEVERE PAIN LEVEL 7-10; Start 04/12 at 15:30 Docusate Sodium (Colace) 100 mg Q12H PRN PO CONSTIPATION; Start 04/12/17 at 15: 30 Magnesium Hydroxide (Milk Of Mag) 30 ml DAILY PRN PO CONSTIPATION; Start at 15:30 Sodium Biphosphate/ Sodium Phosphate (Fleet Enema) 133 ml DAILY PRN AR CONSTIPATION; Start 04/12/17 at 15:30 Pantoprazole (Protonix Iv) 40 mg DAILY@06 IV Last administered on 04/13/17 05: 23; Admin Dose 40 MG; Start 04/13/17 at 06:00 Heparin Sodium (Porcine) 5000 unit 5,000 unit Q12 SC Last administered on 21:32; Admin Dose 5,000 UNIT; Start 04/12/17 at 21:00 Sodium Chloride (1/2 NS) 1,000 ml @ 75 mls/hr [id number] IV Last administered on 04/13/17 07:17; Admin Dose 75 MLS/HR; Start 04/12/17 at 15:28 Lorazepam (Ativan) 0.5 mg Q6H PRN IV ANXIETY; Start 04/12/17 at 15:30 Hydralazine HCl (Apresoline) 10 mg Q6H PRN IV ELEVATED BLOOD PRESSURE; Start at 15:30 Nitroglycerin 1 tab 1 tab Q5M PRN SL ANGINA; Start 04/12/17 at 15:30 Ceftriaxone Sodium (Rocephin) 50 ml @ 100 mls/hr Q24H IVPB Last administered on 04/12/17 17:26; Admin Dose 100 MLS/HR; Start 04/12/17 at 16:00 MAGDALENA CASTILLO April 13, 2017 12:07
[2017-04-13] MEDS: HEPARIN 5,000 UNIT/0.5 ML VIAL SC SCH ×2 (12:12→20:46)
--- NOTE | 2017-04-13 12:22 | RADRPT ---
PROCEDURE: XR small-bowel follow-through. CLINICAL INDICATION: Bowel obstruction TECHNIQUE: Multiple overhead radiographs of the abdomen were obtained following the uncomplicated administration of Gastrografin via nasogastric tube. A total of 9 overhead radiographs were obtaine d during the procedure. COMPARISON: CT, 04/12/2017 FINDINGS: [employer] film demonstrates nasogastric tube within the stomach. The bowel gas pattern is normal. Contr ast flows easily through the bowel loops into the colon. Contrast reaches the cecum and ascending c olon at 45 minutes minutes post contrast administration. No evidence for obstruction is seen. Ther e is nonspecific mild dilatation of small bowel loops in the right lower quadrant, similar in appear ance to prior CT. IMPRESSION: 1. No evidence of bowel obstruction is identified. 2. There is nonspecific dilatation of bowel loops in the right lower quadrant, grossly similar in a ppearance to the prior CT. RPTAT: QQ .Carlos Collazo MD, MD Date Time Electronically viewed and signed by .Carlos Collazo MD, on 04/13/2017 12:21 .R/
--- NOTE | 2017-04-13 13:17 | CONS ---
DATE OF ADMISSION: 04/12/2017 DATE OF CONSULTATION: 04/13/2017 TYPE OF CONSULTATION: Surgical. REASON FOR CONSULTATION: Small-bowel obstruction. HISTORY OF PRESENT ILLNESS: The patient is a 61-year-old female who presented to the emergency room with sudden onset of severe epigastric and abdominal pain. CT scan showed a small-bowel obstructio n with a transition point in the right lower quadrant. The patient had a NG tube placed and a small bowel follow-through was ordered and has just completed. Small bowel follow-through shows no eviden ce of obstruction and there is contrast in the colon at one hour. The patient states that she feels markedly symptomatically improved and is in fact asymptomatic. PAST MEDICAL HISTORY: Hysterectomy 12 years ago at [facility]. OUTPATIENT MEDICATIONS: Include: 1. Omeprazole. 2. Gabapentin. 3. Zolpidem. REVIEW OF SYSTEMS: HEAD, EYES, EARS, NOSE, THROAT: Within normal limits. PULMONARY: No history of pneumonia, shortness of breath or asthma. CARDIAC: No history of chest pain, [place] or arrhythmia. ABDOMEN: As in the HPI. EXTREMITIES: Unremarkable. ALLERGIES: NONE. PHYSICAL EXAMINATION: GENERAL: The patient is an alert and oriented 61-year-old female, in no acute distress. HEAD, EARS, EYES, NOSE, THROAT: Within normal limits. There is a nasogastric tube in place. LUNGS: Clear. HEART: Regular rhythm. ABDOMEN: Soft, nontender and flat. There is well healed vertical midline scar without hernias. EXTREMITIES: Unremarkable. LABORATORY DATA: The patient's hematocrit is 33.7 with a white count of 3400, without left shift. BUN, glucose, electrolytes are unremarkable. INR is 1.0. SBFT as noted above. IMPRESSION: Small-bowel obstruction noted on CT scan, is resolved. PLAN: Discontinue NG tube, start clear liquids and advance diet as tolerated. If tolerates, can delbert velez be discharged either later today or tomorrow. Dictated By: ALEM GARDUNO/MARYBETH Conf#: [id number] DID#: [id number]
[2017-04-13] MEDS: CEFTRIAXONE 1 GM/50 ML (PMX) 50 ML IVPB SCH (16:34)
[2017-04-13 20:05] VITALS: BP 117/70; RESP 18
[2017-04-14] MEDS: SOD CHLORIDE 0.45% 1,000 ML IV SCH ×2 (03:43→05:42)
[2017-04-14] MEDS: PANTOPRAZOLE 40 MG INJ IV SCH (05:40)
[2017-04-14 07:46] VITALS: BP 93/56; RESP 16
[2017-04-14 08:11] LABS: ADD SCAN DIFF NO
[2017-04-14 08:17] LABS: ABNORMAL IP MESSAGE 1; BASOPHILS % 0.6 % (0.0-2.0); EOSINOPHILS # 0.1 10^3/ul (0.0-0.5); EOSINOPHILS % 1.8 % (0.0-7.0); HEMATOCRIT 33.8 % (37.0-47.0); HEMOGLOBIN 10.4 g/dl (12.0-16.0); LYMPHOCYTES # 1.2 10^3/ul (0.8-2.9); LYMPHOCYTES % 35.7 % (15.0-51.0); MEAN CORPUSCULAR HEMOGLOBIN 24.8 pg (29.0-33.0); MEAN CORPUSCULAR HGB CONC 30.8 g/dl (32.0-37.0); MEAN CORPUSCULAR VOLUME 80.5 fl (82.0-101.0); MEAN PLATELET VOLUME 9.4 fl (7.4-10.4); MONOCYTE # 0.2 10^3/ul (0.3-0.9); MONOCYTES % 7.4 % (0.0-11.0); NEUTROPHIL # 1.8 10^3/ul (1.6-7.5); NEUTROPHILS % 54.2 % (39.0-77.0); PLATELET COUNT 291 10^3/UL (140-415); WHITE BLOOD COUNT 3.3 10^3/ul (4.8-10.8)
[2017-04-14 08:41] LABS: POTASSIUM 3.3 mmol/L (3.5-5.1)
[2017-04-14 08:44] LABS: CALCIUM 8.9 mg/dl (8.4-10.2); CREATININE 0.85 mg/dl (0.44-1.00)
--- NOTE | 2017-04-14 08:50 | PN ---
DATE: 04/14/2017 SUBJECTIVE: The patient is completely asymptomatic. She is tolerating a regular diet. OBJECTIVE: Her abdominal examination is benign. PLAN: The patient can be discharged. There are no further surgical recommendations. Dictated By: ALEM GARDUNO/MARYBETH Conf#: [id number] DID#: [id number]
[2017-04-14] MEDS: HEPARIN 5,000 UNIT/0.5 ML VIAL SC SCH (09:14)
[2017-04-14] MEDS ORDERED: POTASSIUM CHLORIDE (SR) 20 MEQ TAB PO STA (10:37)
--- NOTE | 2017-04-14 10:38 | PDOCDIS ---
Discharge Instructions CONDITION Patient Condition: Stable HOME CARE INSTRUCTIONS: Special Diet: soft ACTIVITY: Activity Restrictions: Slowly Increase Activity FOLLOW UP/APPOINTMENTS Appointments Please take your medications, and see your doctor in the clinic in 1 week. MAGDALENA CASTILLO April 14, 2017 10:38
[2017-04-14] MEDS ORDERED: CIPR-193 PO (10:40)
[2017-04-14] MEDS ORDERED: IMO2 PO (10:40)
--- NOTE | 2017-04-14 10:59 | DS ---
DATE OF ADMISSION: 04/12/2017 DATE OF DISCHARGE: 04/14/2017 HISTORY OF PRESENT ILLNESS: She came in with some abdominal pain. She was found with small bowel o bstruction. This is recurrent. She has a prior history of ovarian cancer in the past with hysterec tobin in the past and has had prior admissions for small bowel obstruction. She was admitted to med/ surg floor, seen by surgery team. She was treated conservatively, including made n.p.o. She had a small bowel follow through performed that showed no evidence of any bowel obstruction. There was no nspecific dilation of bowel loops in the right lower quadrant. Eventually, the patient, after about 24 hours, was able to be started on diet. She tolerated it well. She had some mild diarrhea after wards, but her white count was stable. She was also treated for simple urinary tract infection, and after getting clearance from surgery team, she will be discharged home today in improved condition. DISCHARGE MEDICATIONS: She will be sent with 1. Cipro 250 mg p.o. b.i.d. for 3 days. 2. Loperamide 2 mg p.o. q. 4 p.r.n. 3. Gabapentin 300 mg b.i.d. 4. Omeprazole 20 mg daily. 5. Ranitidine 300 mg at bedtime. 6. Sertraline 50 mg daily. 7. Tramadol 50 mg t.i.d. p.r.n. 8. Ambien 10 mg p.o. at bedtime p.r.n. She is to follow up with primary care doctor in the next 1 to 2 weeks. FINAL DIAGNOSES: 1. Abdominal pain secondary to small bowel obstruction, now clinically improved. 2. History of recurrent small bowel obstruction. 3. History of ovarian cancer status post hysterectomy in the past. 4. Simple urinary tract infection. 5. Mild diarrhea, improved. Time spent discharging patient: 35 minutes. Dictated By: MAGDALENA HURD Conf#: [id number] DID#: [id number]
[2017-04-14] MEDS ORDERED: LOPERAMIDE 2 MG CAP PO ONE (11:00)
== END 2017-04-14 13:20 | disposition home or self-care (01) | DRG 389 ==
LOC: E/R 11:41 → MS2 14:34
PROVIDERS: ADMIT Internal Medicine; ATTEND Internal Medicine
DX: K56.60 Unspecified intestinal obstruction (principal); N39.0 Urinary tract infection, site not specified; Z85.43 Personal history of malignant neoplasm of ovary; R19.7 Diarrhea, unspecified
CPT/HCPCS: 36415; 74177; 74250; 80048; 80053; 80061; 81001; 81003; 83036; 83690; 83735; 84100; 84439; 84443; 85025; 85610; 85730; 93005; 96365; 96375; 96376; C9113; J0696; J1644; J2270; J2405; J7030; Q9967

== ENCOUNTER 2017-06-17 06:37 | Emergency (ER) | payer SELFPAY ==
[~2017-06-17] VITALS: Wt 56.1 kg
[~2017-06-17 06:37] MED LIST changes: -BENZ1LOZ4 MT; +CIPR-193 PO; -DOCU-144 PO; -FER325 PO; +IMO2 PO; -LORA1TAB PO; +RANI300T PO; +SERT50TA6 PO
== END 2017-06-17 09:00 | disposition left against medical advice (07) ==
LOC: E/R 06:37
DX: Z53.21 Procedure and treatment not carried out due to patient leaving prior to being seen by health care provider (principal)

== ENCOUNTER 2017-07-13 12:39 | Inpatient (IN) | payer BC ==
[~2017-07-13] VITALS: Ht 157.5 cm; Wt 56.5 kg
[2017-07-13] MEDS ORDERED: SOD CHLORIDE 0.9% 1,000 ML IV STA (14:18)
[2017-07-13] MEDS ORDERED: morphine 4 MG/ML VIAL IV STA (14:18)
[2017-07-13] MEDS ORDERED: ONDANSETRON 4 MG INJ IV STA ×2 (14:18→17:22)
--- NOTE | 2017-07-13 14:33 | ERA ---
ER Documentation Chief Complaint Date/Time DATE: 07/13/17 TIME: 14:31 Chief Complaint UPPER ABDOMINAL PAIN, VOMITING X 2 DAYS HPI This is a 61-year-old female who presents with abdominal pain and vomiting. The patient has a prior history of small bowel obstruction. The patient presents with 2 days of symptoms include abdominal bloating, diffuse abdominal pain that is moderate to severe with associated nonbloody numbers emesis. Lack of bowel movement and lack of flatus for approximately 24 hours. No fevers or chills, no lumbar back pain. ROS All systems reviewed and are negative except as per history of present illness. Medications Home Meds Reported Medications Omeprazole* (Omeprazole*) 20 Mg Capsule.dr, 20 MG PO DAILY, #30 CAP 07/13/17 Sertraline Hcl* (Sertraline Hcl*) 50 Mg Tablet, 50 MG PO DAILY, #30 TAB 04/12/17 Gabapentin* (Gabapentin*) 300 Mg Capsule, 300 MG PO BID, #60 CAP 04/25/16 Zolpidem Tartrate* (Zolpidem Tartrate*) 10 Mg Tablet, 10 MG PO QHS Y for INSOMNIA, #30 TAB 03/23/16 Discontinued Reported Medications Ranitidine Hcl* (Ranitidine Hcl*) 300 Mg Tablet, 300 MG PO HS, #30 TAB 04/12/17 Omeprazole* (Omeprazole*) 20 Mg Capsule.dr, 20 MG PO DAILY, #30 CAP 04/27/16 Discontinued Scripts Ciprofloxacin Hcl* (Ciprofloxacin Hcl*) 250 Mg Tablet, 250 MG PO BID for 3 Days , #6 TAB Prov:MAGDALENA CASTILLO S. 04/14/17 Loperamide Hcl* (Loperamide Hcl*) 2 Mg Cap, 2 MG PO Q4 Y for DIARRHEA for 7 Days , #10 CAP Prov:MAGDALENA CASTILLO S. 04/14/17 Tramadol HCl (Tramadol HCl) 50 Mg Tablet, 50 MG PO BID Y for PAIN LEVEL 6-10, # 20 TAB Prov:MIKI PICHARDO 03/13/17 Allergies Allergies: Coded Allergies: No Known Allergy (Unverified , 07/13/17) PMhx/Soc History of Surgery: Yes (Hysterectomy 2006, Hernia repair one year ago) Anesthesia Reaction: No Hx Neurological Disorder: No Hx Respiratory Disorders: No Hx Cardiac Disorders: No Hx Psychiatric Problems: No Hx Miscellaneous Medical Probl: No (Ovarian Cancer 2010, in Remission) Hx Alcohol Use: No Hx Substance Use: No Hx Tobacco Use: No FmHx Family History: No diabetes Physical Exam Vitals Vital Signs Date Time Temp Pulse Resp B/P Pulse Ox O2 Delivery O2 Flow Rate FiO2 07/13/17 17:50 60 15 117/74 97 Room Air 07/13/17 12:42 98.8 84 20 114/57 99 Physical Exam General: Well developed, well nourished, no acute distress Head: Normocephalic, atraumatic. Eyes: Pupils equally reactive, EOM intact ENT: Moist mucous membranes Neck: Supple, no lymphadenopathy Respiratory: Lungs clear bilaterally, no distress Cardiovascular: RRR, no murmurs, rubs, or gallops Abdominal: Protuberant with diffuse tenderness, no peritonitis, no pulsatile mass, decreased bowel sounds. : Deferred MSK: No edema, no unilateral swelling, 5/5 strength Neurologic: Alert and oriented, moving all extremities, normal speech, no focal weakness, no cerebellar signs Skin: No rash Psych: Normal mood Result Diagram: 07/13/17 1441 07/13/17 1441 Results 24 hrs Laboratory Tests Test 07/13/17 14:41 White Blood Count 8.210^3/ul Red Blood Count 5.1010^6/ul Hemoglobin 14.1g/dl Hematocrit 43.8% Mean Corpuscular Volume 85.9fl Mean Corpuscular Hemoglobin 27.6pg Mean Corpuscular Hemoglobin Concent 32.2g/dl Red Cell Distribution Width 13.5% Platelet Count 35827^3/UL Mean Platelet Volume 9.2fl Neutrophils % 76.8% Lymphocytes % 16.5% Monocytes % 6.1% Eosinophils % 0.2% Basophils % 0.2% Nucleated Red Blood Cells % 0.0/100WBC Neutrophils # 6.310^3/ul Lymphocytes # 1.410^3/ul Monocytes # 0.510^3/ul Eosinophils # 0.010^3/ul Basophils # 0.010^3/ul Nucleated Red Blood Cells # 0.010^3/ul Prothrombin Time 12.5Sec Prothrombin Time Ratio 1.0 INR International Normalized Ratio 0.93 Activated Partial Thromboplast Time 32.6Sec Urine Color YELLOW Urine Clarity SLIGHTLY CLOUDY Urine pH 7.0 Urine Specific [place] 1.020 Urine Ketones 1+mg/dL Urine Nitrite NEGATIVEmg/dL Urine Bilirubin NEGATIVEmg/dL Urine Urobilinogen NEGATIVEmg/dL Urine Leukocyte Esterase TRACELeu/ul Urine Microscopic RBC 2/HPF Urine Microscopic WBC 2/HPF Urine Squamous Epithelial Cells FEW/HPF Urine Mucus FEW/HPF Urine Hemoglobin NEGATIVEmg/dL Urine Glucose NEGATIVEmg/dL Urine Total Protein NEGATIVEmg/dl Sodium Level 146mmol/L Potassium Level 4.7mmol/L Chloride Level 100mmol/L Carbon Dioxide Level 29mmol/L Anion Gap 22 Blood Urea Nitrogen 21mg/dl Creatinine 1.01mg/dl Glucose Level 117mg/dl Calcium Level 10.4mg/dl Total Bilirubin 0.5mg/dl Direct Bilirubin 0.00mg/dl Indirect Bilirubin 0.5mg/dl Aspartate Amino Transf (AST/SGOT) 38IU/L Alanine Aminotransferase (ALT/SGPT) 25IU/L Alkaline Phosphatase 98IU/L Total Protein 9.1g/dl Albumin 4.8g/dl Globulin 4.30g/dl Albumin/Globulin Ratio 1.11 Lipase 126U/L Current Medications Medications (Trade) Dose Ordered Sig/Gregoria Route PRN Reason Start Time Stop Time Status Last Admin Dose Admin Sodium Chloride (NS) 1,000 ml @ 1,000 mls/hr Q1H STAT IV 07/13/17 14:18 07/13/17 15:17 DC 07/13/17 14:31 Morphine Sulfate (morphine) 4 mg ONCE STAT IV 07/13/17 14:18 07/13/17 14:19 DC 07/13/17 14:33 Ondansetron HCl (Zofran Inj) 4 mg ONCE STAT IV 07/13/17 14:18 07/13/17 14:19 DC 07/13/17 14:31 Lidocaine (Xylocaine (Viscous)) 15 ml ONCE ONCE PO 07/13/17 17:30 07/13/17 17:31 DC 07/13/17 17:42 Hydromorphone HCl (Dilaudid) 1 mg ONCE STAT IV 07/13/17 17:22 07/13/17 17:23 DC 07/13/17 17:43 Ondansetron HCl (Zofran Inj) 4 mg ONCE STAT IV 07/13/17 17:22 07/13/17 17:23 DC 8/12/17 17:42 Procedures/MDM EKG, MONITORS, & DIAGNOSTIC IMAGING: CT abdomen and pelvis: IMPRESSION: Partial distal small bowel obstruction with transition point in the inferior mid abdomen is unchanged from prior CT performed April 12, 2017. There is a short segment of thick-walled small bowel at the transition point that may indicate segmental enteritis that was better evaluated on the prior exam performed with intravenous contrast. Small volume free intraperitoneal fluid is increased. In this clinical setting of ovarian cancer, the patient may benefit from contrast enhanced CT to better evaluate for peritoneal implants. Small left kidney as before. LAB INTERPRETATION: No leukocytosis MEDICAL DECISION MAKING: The patient has a history of bowel obstruction and presents with signs and symptoms concerning for small bowel obstruction. Patient will benefit from fluids, pain control, CT imaging of the abdomen and pelvis. ER COURSE: Small bowel obstruction noted on CT. In the past reviewing the patient's electronic medical record she has been managed conservatively and has had normal small bowel follow-through is. This may be an appropriate management today. An NG tube was placed. The general surgeon was notified. Repeat pain medicine required. I kept the patient and/or family informed of laboratory and diagnostic imaging results throughout the emergency room course. DISPOSITION PLAN: Medical surgical admission for management of SBO CONSULTATION: Accepting care team and consultations: I discussed the current laboratory data, diagnostic imaging and emergency care provided. Admitting team: Dr. Magallon Admitting team indication: Insurance directed Consulting services: Dr. Lee who is covering for Dr. Kaye Departure Diagnosis: Primary Impression: Small bowel obstruction Condition: Stable JOE URENA MD Jul 13, 2017 14:32
[2017-07-13 14:48] LABS: BASOPHILS % 0.2 % (0.0-2.0); EOSINOPHILS % 0.2 % (0.0-7.0); HEMATOCRIT 43.8 % (37.0-47.0); HEMOGLOBIN 14.1 g/dl (12.0-16.0); LYMPHOCYTES # 1.4 10^3/ul (0.8-2.9); LYMPHOCYTES % 16.5 % (15.0-51.0); MEAN CORPUSCULAR HEMOGLOBIN 27.6 pg (29.0-33.0); MEAN CORPUSCULAR HGB CONC 32.2 g/dl (32.0-37.0); MEAN CORPUSCULAR VOLUME 85.9 fl (82.0-101.0); MEAN PLATELET VOLUME 9.2 fl (7.4-10.4); MONOCYTE # 0.5 10^3/ul (0.3-0.9); MONOCYTES % 6.1 % (0.0-11.0); NEUTROPHIL # 6.3 10^3/ul (1.6-7.5); NEUTROPHILS % 76.8 % (39.0-77.0); PLATELET COUNT 357 10^3/UL (140-415); RED CELL DISTRIBUTION WIDTH 13.5 % (11.5-14.5); WHITE BLOOD COUNT 8.2 10^3/ul (4.8-10.8)
[2017-07-13 15:02] LABS: UR MUCUS FEW /HPF (NONE SEEN); UR RBC 2 /HPF (0-5); UR SQUAMOUS EPITHELIAL CELL FEW /HPF (FEW)
[2017-07-13 15:03] LABS: ADD UMIC YES; UR ASCORBIC ACID NEGATIVE (NEGATIVE); UR BILIRUBIN (Dip) NEGATIVE (NEGATIVE); UR BLOOD (Dip) NEGATIVE (NEGATIVE); UR CLARITY SLIGHTLY CLOUDY (CLEAR); UR COLOR YELLOW (YELLOW); UR GLUCOSE (Dip) NEGATIVE (NEGATIVE); UR KETONES (Dip) 1+ mg/dL (NEGATIVE); UR LEUKOCYTE ESTERASE (Dip) TRACE Leu/ul (NEGATIVE); UR NITRITE (Dip) NEGATIVE (NEGATIVE); UR TOTAL PROTEIN (Dip) NEGATIVE (NEGATIVE); UR UROBILINOGEN (Dip) NEGATIVE (NEGATIVE)
[2017-07-13 15:07] LABS: BILIRUBIN,INDIRECT 0.5 mg/dl (0-1.1); BILIRUBIN,TOTAL 0.5 mg/dl (0.2-1.3); CALCIUM 10.4 mg/dl (8.4-10.2); CREATININE 1.01 mg/dl (0.44-1.00); POTASSIUM 4.7 mmol/L (3.5-5.1)
[2017-07-13 15:08] LABS: ALBUMIN 4.8 g/dl (3.3-4.9); ALBUMIN/GLOBULIN RATIO 1.11; TOTAL PROTEIN 9.1 g/dl (6.1-8.1)
[2017-07-13 15:20] LABS: INR 0.93; PROTIME 12.5 Sec (12.2-14.2)
[2017-07-13 15:21] LABS: PARTIAL THROMBOPLASTIN TIME 32.6 Sec (25.0-35.0)
--- NOTE | 2017-07-13 17:05 | RADRPT ---
PROCEDURE: CT ABDOMEN AND PELVIS WITHOUT CONTRAST: CLINICAL INDICATION: 61 years, female. 2-day history of abdominal pain. History of ovarian cancer and hernia symptoms. COMPARISON: Small bowel follow-through April 13, [address] abdomen pelvis April 12, 2017 TECHNIQUE: CT of the abdomen, and pelvis was performed without intravenous contrast. Oral contrast w as not administered prior to the examination. Coronal and sagittal reformatted images were obtained from the axial source images. Images were revi ewed on a high-resolution PACS workstation. Dose information: Based on a 32 cm phantom, the estimated radiation dose (CTDI vol mGy) for each ser ies in this exam is 6.2 . The estimated cumulative dose (DLP mGy-cm) is 319 . FINDINGS: In the absence of intravenous contrast, the study constitutes a limited assessment of the solid orga ns and vessels. LUNG BASES: Normal. ABDOMEN/PELVIS: Liver: Normal. Gallbladder: Normal. Bile ducts: No intrahepatic or extrahepatic biliary duct dilatation. Spleen: Normal. Pancreas: Normal. Adrenal glands: Normal. Kidneys and ureters: Left kidney is developmentally small or atrophic that is unchanged from prior e xam. Right kidney appears normal for a noncontrast scan. Negative for urinary calculi or hydroneph rosis. Aorta and IVC: Normal noncontrast appearance. Lymph nodes: There are small lymph nodes posterior to the ascending colon in the right lower quadran t that are unchanged from prior exam. Dominant lymph node measures 0.8 cm (3/82). Gastrointestinal tract: There are dilated loops of small bowel in the right lower quadrant with the small bowel feces sign measuring up to 4.2 cm with a a transition point in the right lower quadrant that is unchanged from prior CT performed April 12, 2017. Short segment of thick-walled small bowel i n the inferior mid abdomen seen on prior CT is again seen on today's exam but is less well evaluated without intravenous contrast and corresponds to the transition point. More proximal small bowel lo ops and stomach are decompressed. Colon is decompressed. There are scattered colonic diverticula w ithout diverticulitis. Appendix: Normal Bladder: Partially filled. Pelvic Organs: Surgically absent. Peritoneal cavity: Small volume free intraperitoneal fluid is increased from prior exam. Negative f or free intraperitoneal air. Abdominal wall: Postsurgical changes anterior abdominal wall BONES: Musculoskeletal: Degenerative changes in the spine with a curvature convex right. Osteopenia. Ther e is mild scalloping of the cortex of the left iliac wing that is unchanged from prior exam. No new bone lesions. IMPRESSION: Partial distal small bowel obstruction with transition point in the inferior mid abdomen is unchange d from prior CT performed April 12, 2017. There is a short segment of thick-walled small bowel at the transition point that may indicate segmental enteritis that was better evaluated on the prior exam performed with intravenous contrast. Small volume free intraperitoneal fluid is increased. In this clinical setting of ovarian cancer, t he patient may benefit from contrast enhanced CT to better evaluate for peritoneal implants. Small left kidney as before. RPTAT: HCTS Physician Ghulam Date Time Electronically viewed and signed by Physician Ghulam on 07/13/2017 17:04 /
[2017-07-13] MEDS ORDERED: HYDROmorphONE 1 MG/ML SYG IV STA (17:22)
[2017-07-13] MEDS ORDERED: LIDOCAINE 2% VISC 15 ML CUP PO ONE (17:30)
[2017-07-13] MEDS ORDERED: OMEP20CA16 PO (17:44)
[2017-07-13] MEDS ORDERED: ONDANSETRON 4 MG INJ IV PRN ×2 (18:30→21:30)
[2017-07-13] MEDS ORDERED: ACETAMINOPHEN 325 MG TAB PO PRN (18:30)
[2017-07-13 20:29] VITALS: BP 118/66; RESP 18
[2017-07-13 20:30] VITALS: Ht 157.5 cm; Wt 56.5 kg
[2017-07-13] MEDS ORDERED: NACL 0.9% 3 ML SYG IV SCH (21:30)
[2017-07-13] MEDS ORDERED: morphine 2 MG INJ IV PRN (21:30)
[2017-07-13] MEDS: SOD CHLORIDE 0.9% 1,000 ML IV SCH (22:53)
[2017-07-14 01:07] VITALS: BP 101/62; RESP 18
--- NOTE | 2017-07-14 01:57 | HP ---
Date/Time of Note Date/Time of Note DATE: 07/14/17 TIME: 01:48 Assessment/Plan VTE Prophylaxis VTE Prophylaxis Intervention: SCD's Lines/Catheters IV [facility] Saline [place] Assessment/Plan Chief Complaint/Hosp Course This is a 61-year-old female being admitted to the [facility] floor for: #1 small bowel obstruction: CAT scan shows signs of obstruction please see CT report for further information. There is recommendation to perform a CAT scan with IV contrast for further evaluation, I will order this for the morning. At the current time we will keep the patient n.p.o. Will provide IV fluid hydration with normal saline. Bowel rest. NG tube to intermittent wall suction. Zofran for nausea. Surgery on-call was consulted by the ER. #2 anxiety: We will resume sertraline as she is better able to tolerate orals. #3 History of endometrial cancer: Patient had a total abdominal hysterectomy in the past. This as well as a previous history of umbilical hernia as well as radiation treatments are likely contributing to #1 secondary to likely adhesions. #4 iron deficiency anemia: Patient's hemoglobin and MCV at this time are within acceptable values. Will continue to follow this. #5 DVT and GI prophylaxis: SCDs, Protonix Further treatment strategy will be implemented as per the clinical course Problems: HPI/ROS Admit Date/Time Admit Date/Time Jul 13, 2017 at 18:27 Hx of Present Illness Chief complaint: Abdominal pain nausea vomiting This is a 61-year-old female who presents with abdominal pain and vomiting. The patient has a prior history of small bowel obstructions. The patient presents with 2 days of symptoms include abdominal bloating, diffuse abdominal pain that is moderate to severe with associated nonbloody numbers emesis. Lack of bowel movement and lack of flatus for approximately 24 hours. No fevers or chills, no lumbar back pain. Patient has had previous bouts of small bowel obstructions which she has required NG tube suctioning. She has had a total abdominal hysterectomy, and an umbilical hernia repair. Allergies: NKDA Medications: See KEVIN ROS Const: As per HPI Eyes : No pain discharge or redness or change in visual acuity ENT: No pain, sore throat, congestion, congestion, dysphagia or discharge Respiratory: No shortness of breath, cough, sputum, wheezing, or pleuritic pain Cardiovascular: No chest pain, palpitation, PND, or edema GI : As per HPI Genitourinary: No dysuria, hematuria, flank pain , discharge or CVA tenderness Musculoskeletal: No joint pain, back pain, neck pain, restricted range of motion in neck or joints Skin: No rash, bruising or hives Neuro: No headache, dizziness, syncope, seizure, focal weakness Endocrine: No polyuria, polydipsia, temperature intolerance Psych: No hallucination, depression, anxiety or suicidal ideation PMH/Family/Social Past Medical History Anxiety; History of small bowel obstruction; Iron Deficiency Anemia, History of Endometrial Carcinoma; History of Left Thigh and Buttocks Cancer requiring ChemoTx and XRT Past Surgical History EDIN/BSO; Umbilical herniorrhaphy Past Surgical Hx: other Family History Significant Family History: no pertinent family hx Social History Alcohol Use: none Smoking Status: Never smoker Drug Use: none Exam/Review of Systems Vital Signs Vitals Vital Signs Date Time Temp Pulse Resp B/P Pulse Ox O2 Delivery O2 Flow Rate FiO2 07/14/17 01:07 98.0 57 18 101/62 98 07/13/17 17:50 Room Air Exam Exam General: This is a pleasant female laying in bed in no acute distress. HEENT: Atraumatic, normocephalic. The pupils are equal, round and reactive. Extraocular motor are intact, NG tube in place and connected to wall suction Neck: Supple with full range of motion. No rigidity or meningismus Chest: Nontender Lungs: Clear to auscultation bilaterally no crackles rales or wheezing Heart: Normal S1-S2, Regular rhythm and rate. No murmur, S3, or S4 Abdomen: Soft, nondistended, tenderness tenderness to palpation around the epigastric and umbilical region, hypoactive bowel sounds Extremities: Normal to inspection, no edema no cyanosis Neurologic: Normal mental status, speech normal, cranial nerves II through XII are intact, motor and sensory are intact, no focal weakness Additional Comments PROCEDURE: CT ABDOMEN AND PELVIS WITHOUT CONTRAST: CLINICAL INDICATION: 61 years, female. 2-day history of abdominal pain. History of ovarian cancer and hernia symptoms. COMPARISON: Small bowel follow-through April 13, [address] abdomen pelvis April 12, 2017 TECHNIQUE: CT of the abdomen, and pelvis was performed without intravenous contrast. Oral contrast was not administered prior to the examination. Coronal and sagittal reformatted images were obtained from the axial source images. Images were reviewed on a high-resolution PACS workstation. Dose information: Based on a 32 cm phantom, the estimated radiation dose (CTDI vol mGy) for each series in this exam is 6.2 . The estimated cumulative dose ( DLP mGy-cm) is 319 . FINDINGS: In the absence of intravenous contrast, the study constitutes a limited assessment of the solid organs and vessels. LUNG BASES: Normal. ABDOMEN/PELVIS: Liver: Normal. Gallbladder: Normal. Bile ducts: No intrahepatic or extrahepatic biliary duct dilatation. Spleen: Normal. Pancreas: Normal. Adrenal glands: Normal. Kidneys and ureters: Left kidney is developmentally small or atrophic that is unchanged from prior exam. Right kidney appears normal for a noncontrast scan. Negative for urinary calculi or hydronephrosis. Aorta and IVC: Normal noncontrast appearance. Lymph nodes: There are small lymph nodes posterior to the ascending colon in the right lower quadrant that are unchanged from prior exam. Dominant lymph node measures 0.8 cm (3/82). Gastrointestinal tract: There are dilated loops of small bowel in the right lower quadrant with the small bowel feces sign measuring up to 4.2 cm with a a transition point in the right lower quadrant that is unchanged from prior CT performed April 12, 2017. Short segment of thick-walled small bowel in the inferior mid abdomen seen on prior CT is again seen on today's exam but is less well evaluated without intravenous contrast and corresponds to the transition point. More proximal small bowel loops and stomach are decompressed. Colon is decompressed. There are scattered colonic diverticula without diverticulitis. Appendix: Normal Bladder: Partially filled. Pelvic Organs: Surgically absent. Peritoneal cavity: Small volume free intraperitoneal fluid is increased from prior exam. Negative for free intraperitoneal air. Abdominal wall: Postsurgical changes anterior abdominal wall BONES: Musculoskeletal: Degenerative changes in the spine with a curvature convex right. Osteopenia. There is mild scalloping of the cortex of the left iliac wing that is unchanged from prior exam. No new bone lesions. IMPRESSION: Partial distal small bowel obstruction with transition point in the inferior mid abdomen is unchanged from prior CT performed April 12, 2017. There is a short segment of thick-walled small bowel at the transition point that may indicate segmental enteritis that was better evaluated on the prior exam performed with intravenous contrast. Small volume free intraperitoneal fluid is increased. In this clinical setting of ovarian cancer, the patient may benefit from contrast enhanced CT to better evaluate for peritoneal implants. Small left kidney as before. RPTAT: HCTS Camryn Rivas Physician Date Time Electronically viewed and signed by Camryn Rivas Physician on 07/13/2017 17: 04 Labs Result Diagram: 07/13/17 1441 07/13/17 1441 Medications Medications Current Medications Sodium Chloride (NS) 1,000 ml @ 80 mls/hr [id number] IV Last administered on 07/13t 22:53; Admin Dose 80 MLS/HR; Start 07/13/17 at 21:07 Ondansetron HCl (Zofran Inj) 4 mg Q6H PRN IV NAUSEA AND/OR VOMITING; Start 11/17 at 21:30 Morphine Sulfate (morphine) 2 mg Q4H PRN IV SEVERE PAIN LEVEL 7-10; Start 07/13 at 21:30 Pantoprazole (Protonix Iv) 40 mg DAILY@06 IV ; Start 07/14/17 at 06:00 CHRIS BARTLETT Jul 14, 2017 01:57
[2017-07-14] MEDS ORDERED: BARIUM SULF 2% 450 ML BTL (BERRY SMOOTHIE) PO ONE (02:00)
[2017-07-14] MEDS ORDERED: PANTOPRAZOLE 40 MG INJ IV SCH (06:00)
[2017-07-14 06:02] LABS: BASOPHILS % 0.6 % (0.0-2.0); EOSINOPHILS # 0.1 10^3/ul (0.0-0.5); HEMATOCRIT 35.2 % (37.0-47.0); HEMOGLOBIN 11.1 g/dl (12.0-16.0); LYMPHOCYTES # 1.4 10^3/ul (0.8-2.9); LYMPHOCYTES % 39.5 % (15.0-51.0); MEAN CORPUSCULAR HEMOGLOBIN 27.3 pg (29.0-33.0); MEAN CORPUSCULAR HGB CONC 31.5 g/dl (32.0-37.0); MEAN CORPUSCULAR VOLUME 86.5 fl (82.0-101.0); MEAN PLATELET VOLUME 9.7 fl (7.4-10.4); MONOCYTE # 0.4 10^3/ul (0.3-0.9); MONOCYTES % 11.3 % (0.0-11.0); NEUTROPHIL # 1.6 10^3/ul (1.6-7.5); NEUTROPHILS % 46.6 % (39.0-77.0); PLATELET COUNT 265 10^3/UL (140-415); RED BLOOD COUNT 4.07 10^6/ul (4.20-5.40); RED CELL DISTRIBUTION WIDTH 13.8 % (11.5-14.5); WHITE BLOOD COUNT 3.4 10^3/ul (4.8-10.8)
[2017-07-14 06:48] LABS: ALBUMIN 3.4 g/dl (3.3-4.9); ALBUMIN/GLOBULIN RATIO 1.21; BILIRUBIN,INDIRECT 0.2 mg/dl (0-1.1); BILIRUBIN,TOTAL 0.2 mg/dl (0.2-1.3); CALCIUM 8.5 mg/dl (8.4-10.2); CHOL/HDL RATIO 2.2 RATIO; CREATININE 0.95 mg/dl (0.44-1.00); MAGNESIUM 2.1 mg/dl (1.7-2.5); POTASSIUM 3.9 mmol/L (3.5-5.1); TOTAL PROTEIN 6.2 g/dl (6.1-8.1)
[2017-07-14 07:02] LABS: THYROID STIMULATING HORMONE 2.99 MIU/L (0.465-4.680)
[2017-07-14] MEDS: SOD CHLORIDE 0.9% 1,000 ML IV SCH ×2 (09:07→11:13)
[2017-07-14] MEDS ORDERED: IOHEXOL 300MG/ML 150 ML BTL ONE (11:47)
[2017-07-14] MEDS ORDERED: SOD CHLORIDE 0.9% 100 ML ONE (11:47)
--- NOTE | 2017-07-14 12:48 | CONS ---
Date/Time of Note Date/Time of Note DATE: 07/14/17 TIME: 12:48 Assessment/Plan Assessment/Plan Chief Complaint/Hosp Course 1. SBO: CT abdomen: Partial distal small bowel obstruction with transition point in the inferior mid abdomen, with concern for acute on chronic intestinal inflammation; +bowel function, pain improved -advance diet as tolerated -no emergent surgical interventions needed at this time -may dc patient per medicine if she tolerates diet; to follow up with primary surgeon or outpatient gen surgery for her concern of recurrent episodes of SBO 2. History of endometrial cancer, s/p hysterectomy, pelvic mass s/p chemo and radiation (likely contributory to #1); initial CT with concern for peritoneal implants; repeat CT: Shoddy retroperitoneal lymph nodes with scattered few mesenteric lymph nodes that are unchanged. -recommend follow up with her oncologist for further management 3. Normocytic hypochromic anemia: hx of iron deficiency anema -medical optimization -monitor for acute bleed Patient seen and examined in collaboration with Dr. Tom Kaye. Thank you. Problems: Consultation Date/Type/Reason Admit Date/Time Jul 13, 2017 at 18:27 Date of Consultation: Jul 14, 2017 Type of Consultation: surgical Reason for Consultation sbo Hx of Present Illness Carey Celestin is a 61-year-old female who presents with abdominal pain and vomiting. She has significant history of abdominal hysterectomy from endometrial carcinoma, mass requiring chemo and radiation in her left pelvic region and umbilical hernia repair. She recounts history of multiple small bowel obstructions over the past 10 years but more frequently over the past few years after radiation. All of these episodes have resolved with conservative measures. Currently she presents with 2 days of symptoms including abdominal bloating, diffuse abdominal pain and nonbloody emesis. Lack of bowel movement and lack of flatus for approximately 24 hours. No fevers, chills or diarrhea. CT abdomen showed partial distal small bowel obstruction with transition point in the inferior mid abdomen. Surgical consult was called to evaluate. Constitutional: improved, No chills, No diaphoresis, No febrile Eyes: No visual change ENT: No congestion Respiratory: No cough, No shortness of breath Cardiovascular: No chest pain, No edema Gastrointestinal: other (as above) Genitourinary: No dysuria Skin: No bruising, No pruritis, No rash Neurologic: No headache Psychological: No anxiety Past Medical History as above anxiety Iron deficiency anemia Past Surgical History as above Past Surgical Hx: other Family History Significant Family History: no pertinent family hx Social History Alcohol Use: none Smoking Status: Never smoker Drug Use: none Exam/Review of Systems Vital Signs Vitals Vital Signs Date Time Temp Pulse Resp B/P Pulse Ox O2 Delivery O2 Flow Rate FiO2 07/14/17 01:07 98.0 57 18 101/62 98 07/13/17 17:50 Room Air Intake and Output 07/13/17 07/13/17 07/14/17 15:00 23:00 07:00 Intake Total 600 ml Balance 600 ml Exam Constitutional: alert, oriented Psych: anxiety Head: atraumatic, normocephalic Eyes: nl lids, nl sclera ENMT: mucosa pink and moist, other (ng tube) Neck: non-tender, supple Respiratory: normal air movement Cardiovascular: regular rate and rhythm Gastrointestinal: bowel sounds, non-tender, soft, surgical scars Genitourinary - Female: nl external genitalia Musculoskeletal: nl extremities to inspection, nl gait and stance Extremities: normal pulses, No edema Neurological: nl mental status, nl speech, nl strength Skin: No rash or lesions Lymph: nontender Results Result Diagram: 07/14/17 0525 07/14/17 0525 Results 24 hrs Laboratory Tests Test 07/13/17 14:41 07/14/17 05:25 White Blood Count 8.2 # 3.4 #L Red Blood Count 5.10 # 4.07 #L Hemoglobin 14.1 # 11.1 #L Hematocrit 43.8 # 35.2 L Mean Corpuscular Volume 85.9 86.5 Mean Corpuscular Hemoglobin 27.6 L 27.3 L Mean Corpuscular Hemoglobin Concent 32.2 31.5 L Red Cell Distribution Width 13.5 # 13.8 Platelet Count 357 # 265 # Mean Platelet Volume 9.2 9.7 Neutrophils % 76.8 46.6 Lymphocytes % 16.5 39.5 Monocytes % 6.1 11.3 H Eosinophils % 0.2 2.0 Basophils % 0.2 0.6 Nucleated Red Blood Cells % 0.0 0.0 Neutrophils # 6.3 1.6 Lymphocytes # 1.4 1.4 Monocytes # 0.5 0.4 Eosinophils # 0.0 0.1 Basophils # 0.0 0.0 Nucleated Red Blood Cells # 0.0 0.0 Prothrombin Time 12.5 Prothrombin Time Ratio 1.0 INR International Normalized Ratio 0.93 Activated Partial Thromboplast Time 32.6 Urine Color YELLOW Urine Clarity SLIGHTLY CLOUDY A Urine pH 7.0 Urine Specific [place] 1.020 Urine Ketones 1+ H Urine Nitrite NEGATIVE Urine Bilirubin NEGATIVE Urine Urobilinogen NEGATIVE Urine Leukocyte Esterase TRACE A Urine Microscopic RBC 2 Urine Microscopic WBC 2 Urine Squamous Epithelial Cells FEW Urine Mucus FEW A Urine Hemoglobin NEGATIVE Urine Glucose NEGATIVE Urine Total Protein NEGATIVE Sodium Level 146 H 144 Potassium Level 4.7 3.9 Chloride Level 100 105 Carbon Dioxide Level 29 28 Anion Gap 22 H 15 # Blood Urea Nitrogen 21 H 19 Creatinine 1.01 H 0.95 Glucose Level 117 82 Calcium Level 10.4 H 8.5 Total Bilirubin 0.5 0.2 Direct Bilirubin 0.00 0.00 Indirect Bilirubin 0.5 0.2 Aspartate Amino Transf (AST/SGOT) 38 30 Alanine Aminotransferase (ALT/SGPT) 25 27 Alkaline Phosphatase 98 61 Total Protein 9.1 H 6.2 # Albumin 4.8 3.4 # Globulin 4.30 H 2.80 Albumin/Globulin Ratio 1.11 1.21 Lipase 126 Hemoglobin A1c 5.4 Magnesium Level 2.1 Triglycerides Level 82 Cholesterol Level 142 LDL Cholesterol, Calculated 62 HDL Cholesterol 64 Cholesterol/HDL Ratio 2.2 Thyroid Stimulating Hormone (TSH) 2.990 Medications Medications Current Medications Sodium Chloride (NS) 1,000 ml @ 80 mls/hr [id number] IV Last administered on 07/14 11:13; Admin Dose 80 MLS/HR; Start 07/13/17 at 21:07 Ondansetron HCl (Zofran Inj) 4 mg Q6H PRN IV NAUSEA AND/OR VOMITING; Start 11/17 at 21:30 Morphine Sulfate (morphine) 2 mg Q4H PRN IV SEVERE PAIN LEVEL 7-10; Start 07/13 at 21:30 Pantoprazole (Protonix Iv) 40 mg DAILY@06 IV Last administered on 07/14/17 06: 01; Admin Dose 40 MG; Start 07/14/17 at 06:00 FARIBA PINA NP Jul 14, 2017 12:48
--- NOTE | 2017-07-14 14:34 | PN ---
Date/Time of Note Date/Time of Note DATE: 07/14/17 TIME: 14:32 Assessment/Plan VTE Prophylaxis VTE Prophylaxis Intervention: SCD's Lines/Catheters IV C[facility]ter Type (from [facility] Saline Lock Assessment/Plan Assessment/Plan 61 yo F with pmhx ovarian Ca sp treatment, h/o admission for SBO 2 mos ago admitted for pSBO. 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 Unclear if pSBO result of adhesions from previous surgery VERSUS from new peritoneal mets from ovarian Ca. PLAN contrast enhanced CT today if NO evidence of peritoneal mets, consider removing NG and PO trial if there ARE evidence of peritoneal mets, will consult onc cont NG pending results of above Subjective 24 Hr Interval Summary Free Text/Dictation Pt passing gas and has had a BM Exam/Review of Systems Vital Signs Vitals Vital Signs Date Time Temp Pulse Resp B/P Pulse Ox O2 Delivery O2 Flow Rate FiO2 07/14/17 01:07 98.0 57 18 101/62 98 07/13/17 17:50 Room Air Intake and Output 07/13/17 07/13/17 07/14/17 15:00 23:00 07:00 Intake Total 600 ml Balance 600 ml Exam nad, NG to LSIS no mrg lungs clear +BS no edema CT from yesterday report reviewed Results Result Diagram: 07/14/17 0525 07/14/17 0525 Results 24 hrs Laboratory Tests Test 07/13/17 14:41 07/14/17 05:25 White Blood Count 8.2 # 3.4 #L Red Blood Count 5.10 # 4.07 #L Hemoglobin 14.1 # 11.1 #L Hematocrit 43.8 # 35.2 L Mean Corpuscular Volume 85.9 86.5 Mean Corpuscular Hemoglobin 27.6 L 27.3 L Mean Corpuscular Hemoglobin Concent 32.2 31.5 L Red Cell Distribution Width 13.5 # 13.8 Platelet Count 357 # 265 # Mean Platelet Volume 9.2 9.7 Neutrophils % 76.8 46.6 Lymphocytes % 16.5 39.5 Monocytes % 6.1 11.3 H Eosinophils % 0.2 2.0 Basophils % 0.2 0.6 Nucleated Red Blood Cells % 0.0 0.0 Neutrophils # 6.3 1.6 Lymphocytes # 1.4 1.4 Monocytes # 0.5 0.4 Eosinophils # 0.0 0.1 Basophils # 0.0 0.0 Nucleated Red Blood Cells # 0.0 0.0 Prothrombin Time 12.5 Prothrombin Time Ratio 1.0 INR International Normalized Ratio 0.93 Activated Partial Thromboplast Time 32.6 Urine Color YELLOW Urine Clarity SLIGHTLY CLOUDY A Urine pH 7.0 Urine Specific [place] 1.020 Urine Ketones 1+ H Urine Nitrite NEGATIVE Urine Bilirubin NEGATIVE Urine Urobilinogen NEGATIVE Urine Leukocyte Esterase TRACE A Urine Microscopic RBC 2 Urine Microscopic WBC 2 Urine Squamous Epithelial Cells FEW Urine Mucus FEW A Urine Hemoglobin NEGATIVE Urine Glucose NEGATIVE Urine Total Protein NEGATIVE Sodium Level 146 H 144 Potassium Level 4.7 3.9 Chloride Level 100 105 Carbon Dioxide Level 29 28 Anion Gap 22 H 15 # Blood Urea Nitrogen 21 H 19 Creatinine 1.01 H 0.95 Glucose Level 117 82 Calcium Level 10.4 H 8.5 Total Bilirubin 0.5 0.2 Direct Bilirubin 0.00 0.00 Indirect Bilirubin 0.5 0.2 Aspartate Amino Transf (AST/SGOT) 38 30 Alanine Aminotransferase (ALT/SGPT) 25 27 Alkaline Phosphatase 98 61 Total Protein 9.1 H 6.2 # Albumin 4.8 3.4 # Globulin 4.30 H 2.80 Albumin/Globulin Ratio 1.11 1.21 Lipase 126 Hemoglobin A1c 5.4 Magnesium Level 2.1 Triglycerides Level 82 Cholesterol Level 142 LDL Cholesterol, Calculated 62 HDL Cholesterol 64 Cholesterol/HDL Ratio 2.2 Thyroid Stimulating Hormone (TSH) 2.990 Medications Medications Current Medications Sodium Chloride (NS) 1,000 ml @ 80 mls/hr [id number] IV Last administered on 07/14 11:13; Admin Dose 80 MLS/HR; Start 07/13/17 at 21:07 Ondansetron HCl (Zofran Inj) 4 mg Q6H PRN IV NAUSEA AND/OR VOMITING; Start 11/17 at 21:30 Morphine Sulfate (morphine) 2 mg Q4H PRN IV SEVERE PAIN LEVEL 7-10; Start 07/13 at 21:30 Pantoprazole (Protonix Iv) 40 mg DAILY@06 IV Last administered on 07/14/17 06: 01; Admin Dose 40 MG; Start 07/14/17 at 06:00 NAYELI NAJERA MD Jul 14, 2017 14:34
[2017-07-14] MEDS ORDERED: ZOLPIDEM 5 MG TAB PO PRN (15:00)
--- NOTE | 2017-07-14 16:01 | RADRPT ---
PROCEDURE: CT Abdomen and Pelvis with contrast. CLINICAL INDICATION: Small bowel obstruction. TECHNIQUE: Multiple contiguous axial CT images of the abdomen and pelvis were obtained following t he administration of 90 cc of Omnipaque-300. Oral contrast was also administered. Coronal and sagitt al reconstructions were also performed. CTDIvol (mGy): 7.75; Total Exam DLP (mGy-cm): 437.12. COMPARISON: 07/13/2017. FINDINGS: Limited imaging of the lower thorax is unremarkable. The liver and spleen are homogeneous in enhancement. The gallbladder, pancreas and adrenal glands a re unremarkable. Left renal atrophy is present and unchanged. Slight diminished global perfusion of the left kidney relative to the right is observed and unchanged. There is no hydronephrosis or perinephric edema. There are no nephroureteral stones. The abdominal aorta is normal in caliber. There is no periaortic / retroperitoneal lymphadenopathy. Shoddy lymph nodes are seen within the retroperitoneum and are unchanged. An enteric tube terminates within the body of the stomach. The stomach is collapsed. There is a pa tulous dilated loop of small bowel measuring 3.8 cm in greatest diameter within the right lower abdo men, which is grossly unchanged over prior examinations. Concentric wall thickening is present with in this segment of bowel. Mild mesenteric edema is observed and appear slightly decreased over prio r examinations. Scattered few small mesenteric lymph nodes are present. There is no ascites. Ther e is no peritoneal thickening or nodularity. The appendix is normal. Intraluminal contrast is seen throughout the small and large intestines extending into the rectosigmoid colon. The bladder is partially distended with mild concentric wall thickening. The uterus is absent. The adnexa are unremarkable. There is no free pelvic fluid. There is no pelvic sidewall or inguinal ly mphadenopathy. Degenerative changes of the lower lumbar spine are present. Body wall soft tissues are unremarkable aside from surgical changes within the ventral abdomen. IMPRESSION: Persistent patulous dilated loop of intestines within the right lower abdomen, unchanged. There is associated concentric wall thickening with mild decrease in associated mesenteric edema. Imaging fi ndings may reflect sequelae of chronic inflammation. Superimposed acute intestinal inflammation may also be present. No evidence of bowel obstruction. Shoddy retroperitoneal lymph nodes with scattered few mesenteric lymph nodes, unchanged. Left renal atrophy. RPTAT: PP .Haley Childress MD, MD Date Time Electronically viewed and signed by .Haley Childress MD, on 07/14/2017 16:01 .T/
[2017-07-14 20:00] VITALS: BP 123/71; PULSE 65; RESP 18
[2017-07-14] MEDS: GABAPENTIN 300 MG CAP PO SCH (20:55)
[2017-07-15 02:00] VITALS: BP 102/69; PULSE 78; RESP 16
[2017-07-15] MEDS ORDERED: PANTOPRAZOLE (EC) 40 MG TAB PO SCH (06:00)
[2017-07-15 08:09] VITALS: BP 112/64; RESP 16
[2017-07-15] MEDS ORDERED: SERTRALINE 50 MG TAB PO SCH (09:00)
[2017-07-15] MEDS: GABAPENTIN 300 MG CAP PO SCH (09:05)
--- NOTE | 2017-07-15 10:37 | PDOCDIS ---
Discharge Instructions CONDITION Patient Condition: Stable HOME CARE INSTRUCTIONS: Diet Instructions: RegularSpecial Diet: If tolerated FOLLOW UP/APPOINTMENTS Follow-up Plan Please take your medications as prescribed. If you experience any abdominal pain or distention, please go to ER, call 911, or your primary care doctor. Please follow-up with your regular doctor in the clinic in the next 1-2 weeks. MAGDALENA CASTILLO Jul 15, 2017 10:37
--- NOTE | 2017-07-15 10:43 | DS ---
Date/Time of Note Date/Time of Note DATE: 07/15/17 TIME: 10:38 Discharge Summary Admission/Discharge Info Admit Date/Time Jul 13, 2017 at 18:27 Discharge Date/Time Discharge Diagnosis 1. SBO: CT abdomen demonstrated this-resolving now 2. History of endometrial cancer, s/p hysterectomy, pelvic mass s/p chemo and radiation (likely contributory to #1) 3. Normocytic hypochromic anemia Patient Condition: Stable Hospital Course 61-year-old female who presented with abdominal pain and vomiting. The patient has a prior history of small bowel obstructions. The patient presented with 2 days of symptoms include abdominal bloating, diffuse abdominal pain that is moderate to severe with associated nonbloody numbers emesis. Lack of bowel movement and lack of flatus for approximately 24 hours prior to admission. No fevers or chills, no lumbar back pain. Patient has had previous bouts of small bowel obstructions which she has required NG tube suctioning. She has had a total abdominal hysterectomy, and an umbilical hernia repair. Patient was admitted to [facility] floor had initial CT scan on July 13 that showed:Partial distal small bowel obstruction with transition point in the inferior mid abdomen , with concern for acute on chronic intestinal inflammation. History of endometrial cancer, s/p hysterectomy, pelvic mass s/p chemo and radiation which was thought to be the source of her SBO. Patient was initially made n.p.o., seen by surgery team. Over the course of her hospital stay her symptoms slowly improved, eventually she was able to pass gas and have bowel movement. Follow- up CT scan on July 14 showed Persistent patulous dilated loop of intestines within the right lower abdomen, unchanged. There is associated concentric wall thickening with mild decrease in associated mesenteric edema. Imaging findings may reflect sequelae of chronic inflammation. Superimposed acute intestinal inflammation may also be present. No evidence of bowel obstruction. She was started on clear liquid diet 24 hours before the day of discharge. On the day of discharge we were attempting to advance her diet, if she tolerates this today she will be discharged home today in improved condition. No surgical intervention was required at this time. See below for full discharge medication list. Home Meds Reported Medications Omeprazole* (Omeprazole*) 20 Mg Capsule.dr, 20 MG PO DAILY, #30 CAP 07/13/17 Sertraline Hcl* (Sertraline Hcl*) 50 Mg Tablet, 50 MG PO DAILY, #30 TAB 04/12/17 Gabapentin* (Gabapentin*) 300 Mg Capsule, 300 MG PO BID, #60 CAP 04/25/16 Zolpidem Tartrate* (Zolpidem Tartrate*) 10 Mg Tablet, 10 MG PO QHS Y for INSOMNIA, #30 TAB 03/23/16 Discontinued Reported Medications Ranitidine Hcl* (Ranitidine Hcl*) 300 Mg Tablet, 300 MG PO HS, #30 TAB 04/12/17 Omeprazole* (Omeprazole*) 20 Mg Capsule.dr, 20 MG PO DAILY, #30 CAP 04/27/16 Discontinued Scripts Ciprofloxacin Hcl* (Ciprofloxacin Hcl*) 250 Mg Tablet, 250 MG PO BID for 3 Days , #6 TAB Prov:MAGDALENA CASTILLO 04/14/17 Loperamide Hcl* (Loperamide Hcl*) 2 Mg Cap, 2 MG PO Q4 Y for DIARRHEA for 7 Days , #10 CAP Prov:MAGDALENA CASTILLO 04/14/17 Tramadol HCl (Tramadol HCl) 50 Mg Tablet, 50 MG PO BID Y for PAIN LEVEL 6-10, # 20 TAB Prov:MIKI PICHARDO 03/13/17 Primary Care Provider MD ANNA Benito GAGANDEEP S. Jul 15, 2017 10:43
--- NOTE | 2017-07-15 10:50 | PN ---
Date/Time of Note Date/Time of Note DATE: 07/15/17 TIME: 10:48 Assessment/Plan Lines/Catheters IV C[facility] Type (from [facility] Saline Lock Assessment/Plan Chief Complaint/Hosp Course 1. SBO: CT abdomen: Partial distal small bowel obstruction with transition point in the inferior mid abdomen, with concern for acute on chronic intestinal inflammation; +bowel function, pain improved; tolerating diet -advance diet as tolerated -no emergent surgical interventions needed at this time -may dc patient per medicine if she tolerates diet; to follow up with primary surgeon or outpatient gen surgery for her concern of recurrent episodes of SBO 2. History of endometrial cancer, s/p hysterectomy, pelvic mass s/p chemo and radiation (likely contributory to #1); initial CT with concern for peritoneal implants; repeat CT: Shoddy retroperitoneal lymph nodes with scattered few mesenteric lymph nodes that are unchanged. -recommend follow up with her oncologist for further management 3. Normocytic hypochromic anemia: hx of iron deficiency anema -medical optimization -monitor for acute bleed Patient seen and examined in collaboration with Dr. Tom Kaye. Thank you. Problems: Subjective 24 Hr Interval Summary Feels well. No abdominal pain or discomfort. Tolerating diet. +bowel function. No fevers, chills, n/v/d/dysuria, cp, sob, cough. Exam/Review of Systems Vital Signs Vitals Vital Signs Date Time Temp Pulse Resp B/P Pulse Ox O2 Delivery O2 Flow Rate FiO2 07/15/17 08:09 98.5 68 16 112/64 98 07/15/17 02:00 Room Air Intake and Output 07/14/17 07/14/17 07/15/17 15:00 23:00 07:00 Intake Total 320 ml Balance 320 ml Exam Free Text/Dictation Constitutional: alert, oriented, pleasant Psych: pleasant Head: atraumatic, normocephalic Eyes: nl lids, nl sclera ENMT: mucosa pink and moist Neck: non-tender, supple Respiratory: normal air movement Cardiovascular: regular rate and rhythm Gastrointestinal: bowel sounds, non-tender, soft, surgical scars Genitourinary - Female: nl external genitalia Musculoskeletal: nl extremities to inspection, nl gait and stance Extremities: normal pulses, No edema Neurological: nl mental status, nl speech, nl strength Skin: No rash or lesions Lymph: nontender Results Result Diagram: 07/14/17 0525 07/14/17 0525 FARIBA PINA NP Jul 15, 2017 10:50
[2017-07-15 14:34] VITALS: BP 108/63; RESP 16
== END 2017-07-15 17:15 | disposition home or self-care (01) | DRG 390 ==
LOC: E/R 12:39 → MS2 18:27
PROVIDERS: ADMIT Internal Medicine; ATTEND Internal Medicine
DX: K56.69 Other intestinal obstruction (principal); D50.9 Iron deficiency anemia, unspecified; K52.9 Noninfective gastroenteritis and colitis, unspecified; F41.9 Anxiety disorder, unspecified; R60.0 Localized edema; Z85.43 Personal history of malignant neoplasm of ovary; Z90.710 Acquired absence of both cervix and uterus; Z92.21 Personal history of antineoplastic chemotherapy; Z92.3 Personal history of irradiation
CPT/HCPCS: 36415; 74176; 74177; 80053; 80061; 81001; 83036; 83690; 83735; 84443; 85025; 85610; 85730; 87086; 96374; 96375; 96376; C9113; J1170; J2270; J2405; J7030; Q9967

== ENCOUNTER 2017-07-22 15:53 | Outpatient (CLI) | payer BC ==
[~2017-07-22] VITALS: Ht 165.1 cm; Wt 64.5 kg
[~2017-07-22 15:53] MED LIST changes: -CIPR-193 PO; -IMO2 PO; -RANI300T PO; -TRAM50TA2 PO
[2017-07-22 16:07] VITALS: BP 107/71; PULSE 68; Ht 165.1 cm; Wt 64.5 kg
[2017-07-22] MEDS ORDERED: DICY10CA60 PO (16:18)
--- NOTE | 2017-07-22 16:35 | PN ---
Date/Time of Note Date/Time of Note DATE: 07/22/17 TIME: 16:29 Outpatient Progress Note Chief Complaint Abdominal pain/endometrial cancer/PUD/anemia/ HPI Abdominal pain/patient was recently admitted with abdominal pain, patient has history of small bowel obstruction, this is her fourth visit to the ER, Endometrial cancer/patient has history of endometrial cancer, and also has history of left thigh and buttock cancer, requiring chemotherapy and treatment, no problem at present, Anemia/patient complains of slight weakness and tiredness, no hematemesis or melena, no bruises or bleeding, Review of Systems Const: No Fever, no chills, no Wt. loss, slight fatigue, reduced appetite, no diaphoresis. Eyes: No pain, no discharge, no redness, no visual change, no foreign body. ENT: No pain, no bleeding, no congestion, no sore throat, no dysphagia, no discharge or rhinitis. Lymph: No adenopathy, no tender nodes, no lymphedema. Resp: No SOB, no cough, no sputum, no wheezing, no chest pain. CV: No chest pain, no palpitaions, no MARINELLI, no PND, no edema. GI: Normal appetite, mild abdominal pain, no nausea, no vomiting, no diarrhea, no blood, no constipation. Scar of previous surgery, : No frequency, no urgency, no dysuria, no hematuria, no flank pain, no discharge, no bleeding. Musc: no back pain, no neck pain, no knee pain, no restricted ROM. Skin: No rash, no skin lesions, no erythema, no laceration, no bruising, no pruritus. Neuro: No NICK, no dizziness, no syncope, no seizure, no focal-weakness. Endo: No polyuria, no polydypsia, no dry-skin, no temp-intolerance. Psych: No hallucinations, no depression, no anxiety, no suicidal ideation. Ext: No edema, no pain, no ulcer, no weakness. Physical Exam Vital Signs Date Time Temp Pulse Resp B/P Pulse Ox O2 Delivery O2 Flow Rate FiO2 07/22/17 16:07 97.9 68 107/71 99 Room Air General Appearance: A 61 year-old female who appears well-developed, well- nourished, in no acute distress. HEENT: Head normocephalic, atraumatic. Pupils equal, round, reactive to light and accommodate. Sclerae are no jaundice. Nasal turbinates pink without erythema or nasal discharge. Mucous membranes pink and moist without lesions. Oropharynx clear without any exudate or discharge. NECK: Supple. Trachea midline, No thyromegaly, No cervical lymphadenopathy, No mass, No carotid bruits, No JVD, Carotid pulses 2+ bilaterally. PULMONARY: Clear to auscultaion bilaterally, No retractions, Chest expansion symmetric bilaterally, no rales, no ronchi, no dulness on percussion. CARDIAC: Normal SI and S2, Regular rate and rythm, no murmur, gallop, or rub. GASTROINTESTINAL: Abdomen is soft, non-tender, patient has slight abdominal distention, scar of previous surgery, Non Rigid, No distention, Positive bowel sounds x4 quadrants, Liver normal. SKIN: Warm, dry, no rash, no bruise, no echmosis. EXTREMITIES: Bilateral lower extremities normal, no edema, no phlabitus, pulse palpable, no contracture. MUSCULOSKELETAL: Spine Normal, Non-tender, Normal range of motion, No swelling, no deformity, no clubbing, or cyanosis, the patient has no edema to bilateral lower extremities, dorsalis pedis pulses palpable bilaterally. NEUROLOGIC: The patient is awake, alert, oriented, responding to yes/no questions appropriately, moving all extremities, cranial nerve intact, normal strenght, normal power, normal coordination, normal gait. Allergies Coded Allergies: No Known Allergy (Unverified , 07/13/17) PMH Abdominal pain/small bowel obstruction/endometrial cancer/PUD/anemia Social Hx No smoking no drinking, Family Hx Noncontributory Patient History: Patient reports no known family medical history. Assessment/Plan Impression Abdominal pain/small bowel obstruction/resolved Endometrial cancer PUD Anemia Plan Patient education done about small bowel obstruction and associated disease, also discussed about eating habits, Patient high risk for repeated admission or ER visits, patient encouraged to eat small, and enough liquid in chewing food good, if patient feel gas use Gas-X , Patient encouraged to follow with primary care physician, follow with the surgery, Medications Home Meds Reported Medications Dicyclomine Hcl* (Bentyl*) 10 Mg Capsule, 10 MG PO QID, CAP 07/22/17 Omeprazole* (Omeprazole*) 20 Mg Capsule.dr, 20 MG PO DAILY, #30 CAP 07/13/17 Sertraline Hcl* (Sertraline Hcl*) 50 Mg Tablet, 50 MG PO DAILY, #30 TAB 04/12/17 Gabapentin* (Gabapentin*) 300 Mg Capsule, 300 MG PO BID, #60 CAP 04/25/16 Zolpidem Tartrate* (Zolpidem Tartrate*) 10 Mg Tablet, 10 MG PO QHS Y for INSOMNIA, #30 TAB 03/23/16 KAYA WOODARD MD Jul 22, 2017 16:34
== END 2017-07-22 16:11 | disposition home or self-care (01) ==
LOC: DCC 15:53
PROVIDERS: ATTEND Internal Medicine
DX: R10.9 Unspecified abdominal pain (principal); C54.1 Malignant neoplasm of endometrium; K27.9 Peptic ulcer, site unspecified, unspecified as acute or chronic, without hemorrhage or perforation; D64.9 Anemia, unspecified

== ENCOUNTER 2017-08-02 07:31 | Day surgery (SDC) | payer BC ==
[~2017-08-02] VITALS: Ht 152.4 cm; Wt 57.9 kg
[~2017-08-02 07:31] MED LIST changes: +DICY10CA60 PO
[2017-08-02 08:01] VITALS: Ht 152.4 cm; Wt 57.9 kg
[2017-08-02] MEDS ORDERED: TRAM50TA2 PO (08:08)
[2017-08-02] MEDS ORDERED: LIDOCAINE 4% SOLUTION 50 ML BTL ONE (08:35)
[2017-08-02 08:46] VITALS: BP 104/61; PULSE 57; RESP 12
--- NOTE | 2017-08-02 09:31 | OPPN ---
Date/Time of Note Date/Time of Note DATE: 08/02/17 TIME: 09:25 Proc Note GI Procedure date: Aug 02, 2017 Pre-procedure Diagnosis Patient presenting with a history of a chronic epigastric pain unresponsive to omeprazole Post-procedure Diagnosis Nodular gastritis of the fundus of the stomach Operation Performed EGD Surgeon: MOLLY ACOSTA MD Anesthesia Type: moderate sedation Estimated blood loss: none Transfusion Required: no Specimens Gastric biopsy Grafts/Implants: none Grafts/Implants None Tubes/Drains None Complications: no Complications None Pt Condition post procedure: stable Indications Presenting with history for chronic epigastric pain unresponsive to omeprazole Operative\Procedure Findings EGD After the informed written consent is obtained patient was asked to lay on the left lateral side. 3 mg Versed 50 mcg of fentanyl was given as intravenous anesthesia The patient became somnolent Olympus video upper endoscope was introduced into the oropharynx then into the esophagus The entire esophagus appeared normal. The stem was advanced into the stomach the fundus of the stomach showed evidence of multiple areas of erythematous irregular mucosa and some nodularity of the mucosa also noted Biopsies were obtained to rule out MALT lymphoma. The stomach showed minimal erythema. The stem was advanced into the duodenum into the mucosa of the duodenum appeared normal up to the end of the third portion. The stem biopsy was done from the antrum and the lesser curvature to rule out H. pylori infection The stem was withdrawn and the procedure was terminated Command switch omeprazole to Dexilant 60 mg once a day for 2 months Pathology report cc MOLLY Mcconnell Dr, MD Aug 02, 2017 09:31
[2017-08-02] MEDS ORDERED: MIDAZOLAM 1 MG/ML 2 ML INJ ONE ×2 (09:32)
[2017-08-02] MEDS ORDERED: FENTAnyl 50 MCG/ML VIAL ONE (09:32)
[2017-08-02 09:56] VITALS: BP 91/60; RESP 18
== END 2017-08-02 17:03 | disposition home or self-care (01) ==
LOC: GIL 07:31
PROVIDERS: ATTEND Internal Medicine Gastroenterology
DX: K29.60 Other gastritis without bleeding (principal)
CPT/HCPCS: 43236; 88305; 88312; J2250; J3010; Z7610

== ENCOUNTER 2018-12-01 20:40 | Inpatient (IN) | payer BC, MEDICAID ==
[~2018-12-01] VITALS: Ht 165.1 cm; Wt 60.5 kg
[~2018-12-01 20:40] MED LIST changes: -DICY10CA60 PO; -SERT50TA6 PO; +TRAM50TA2 PO
[2018-12-01] MEDS ORDERED: ONDANSETRON 4 MG INJ IV STA (21:04)
[2018-12-01] MEDS ORDERED: HYDROmorphONE 1 MG/ML SYG IV STA (21:04)
[2018-12-01] MEDS ORDERED: SOD CHLORIDE 0.9% 1,000 ML IV STA (21:04)
[2018-12-01] MEDS ORDERED: SOD CHLORIDE 0.9% 100 ML ONE (21:50)
[2018-12-01] MEDS ORDERED: IOHEXOL 300MG/ML 150 ML BTL ONE (21:50)
--- NOTE | 2018-12-01 22:11 | ERD ---
ER Documentation Chief Complaint Chief Complaint AP, VOMITING X'S 1 DAY HPI This is a 63-year-old female who complains the onset of 2 PM today of diffuse abdominal cramps with nausea and vomiting is nonbilious and nonbloody as well as 3 or 4 loose bowel movements that are also nonbloody. The patient has a history of small bowel obstruction requiring non-surgical repair. Denies any fever or chills chest pain shortness of breath no hematuria or dysuria. She has a history of endometrial cancer with hysterectomy ROS All systems reviewed and are negative except as per history of present illness. Medications Home Meds Reported Medications Tramadol HCl (Tramadol HCl) 50 Mg Tablet, 50 MG PO Q6H PRN for PAIN LEVEL 1-5, #120 TAB 08/02/17 Omeprazole* (Omeprazole*) 20 Mg Capsule.dr, 20 MG PO DAILY, #30 CAP 07/13/17 Gabapentin* (Gabapentin*) 300 Mg Capsule, 300 MG PO BID, #60 CAP 04/25/16 Zolpidem Tartrate* (Zolpidem Tartrate*) 10 Mg Tablet, 10 MG PO QHS PRN for INSOMNIA, #30 TAB 03/23/16 Allergies Allergies: Coded Allergies: No Known Allergy (Unverified , 08/02/17) PMhx/Soc Medical and Surgical Hx: pt denies Medical Hx, pt denies Surgical Hx History of Surgery: Yes (HYSTERECTOMY, HERNIA REPAIR) Anesthesia Reaction: No Hx Neurological Disorder: No Hx Respiratory Disorders: No Hx Cardiac Disorders: No Hx Psychiatric Problems: Yes (ANXIETY) Hx Miscellaneous Medical Probl: Yes (BOWEL OBSTRUCTION) Hx Alcohol Use: No Hx Substance Use: No Hx Tobacco Use: No Smoking Status: Never smoker FmHx Family History: No coronary disease Physical Exam Vitals Vital Signs Date Temp Pulse Resp B/P (MAP) Pulse Ox O2 O2 Flow FiO2 Time Delivery Rate 12/01/18 73 16 115/75 99 Room Air 22:30 (88) 12/01/18 97.9 70 20 127/71 98 20:42 (89) Physical Exam Const: Well-developed, well-nourished Head: Atraumatic, normocephalic Eyes: Normal Conjunctiva, PERRLA, EOMI, normal sclera, no nystagmus ENT: Normal External Ears, Nose and Mouth, moist mucus membranes. Neck: Full range of motion. No meningismus, no lymphadenopathy. Resp: Clear to auscultation bilaterally, no wheezing, rhonchi, rales Cardio: Regular rate and rhythm, no murmurs, S1 S2 present Abd: Soft, mild to moderate diffuse abdominal tenderness, non distended. Normal bowel sounds, no guarding or rebound, no pulsitile abdominal masses or bruits Skin: No petechiae or rashes, no ecchymosis , no maculopapular rash Back: No midline or flank tenderness Ext: No cyanosis, or edema, FROM x 4, normal inspection, neurovascularly intact x 4 Neur: Awake and alert, STR 5/5 x 4, sensation intact x 4, no focal findings, cerebellum intact Psych: Normal Mood and Affect Result Diagram: 12/01/18 2100 12/01/18 2100 Results 24 hrs Laboratory Tests Test 12/01/18 21:00 White Blood Count 10.9 10^3/ul Red Blood Count 5.23 10^6/ul Hemoglobin 14.0 g/dl Hematocrit 43.6 % Mean Corpuscular Volume 83.4 fl Mean Corpuscular Hemoglobin 26.8 pg Mean Corpuscular Hemoglobin Concent 32.1 g/dl Red Cell Distribution Width 14.7 % Platelet Count 411 10^3/UL Mean Platelet Volume 9.3 fl Immature Granulocytes % 0.200 % Neutrophils % 81.2 % Lymphocytes % 14.8 % Monocytes % 3.5 % Eosinophils % 0.0 % Basophils % 0.3 % Nucleated Red Blood Cells % 0.0 /100WBC Immature Granulocytes # 0.020 10^3/ul Neutrophils # 8.8 10^3/ul Lymphocytes # 1.6 10^3/ul Monocytes # 0.4 10^3/ul Eosinophils # 0.0 10^3/ul Basophils # 0.0 10^3/ul Nucleated Red Blood Cells # 0.0 10^3/ul Sodium Level 146 mmol/L Potassium Level 3.7 mmol/L Chloride Level 104 mmol/L Carbon Dioxide Level 27 mmol/L Anion Gap 15 Blood Urea Nitrogen 19 mg/dl Creatinine 0.94 mg/dl Est Glomerular Filtrat Rate mL/min > 60 mL/min Glucose Level 168 mg/dl Calcium Level 10.6 mg/dl Total Bilirubin 0.2 mg/dl Direct Bilirubin 0.00 mg/dl Indirect Bilirubin 0.2 mg/dl Aspartate Amino Transf (AST/SGOT) 38 IU/L Alanine Aminotransferase (ALT/SGPT) 23 IU/L Alkaline Phosphatase 91 IU/L Total Protein 7.9 g/dl Albumin 4.7 g/dl Globulin 3.20 g/dl Albumin/Globulin Ratio 1.46 Lipase 131 U/L Current Medications Medications Dose Sig/Gregoria Start Time Status Last (Trade) Ordered Route PRN Stop Time Admin Dose Reason Admin Sodium 1,000 ml @ Q1H STAT 12/01/18 DC 12/01/18 Chloride 1,000 mls/hr IV 21:04 21:18 12/01/18 22:03 1 mg ONCE STAT 12/01/18 DC 12/01/18 Hydromorphone IV 21:04 21:18 HCl 12/01/18 (Dilaudid) 21:05 Ondansetron 4 mg ONCE STAT 12/01/18 DC 12/01/18 HCl (Zofran IV 21:04 21:12 Inj) 12/01/18 21:05 IV Flush 10 ml STK-MED 12/01/18 DC 12/01/18 (NS 10 ml) ONCE .ROUTE 21:50 22:06 12/01/18 21:51 Sodium 100 ml @ ud STK-MED 12/01/18 DC 12/01/18 Chloride ONCE .ROUTE 21:50 22:06 12/01/18 21:51 Iohexol 150 ml STK-MED 12/01/18 DC 12/01/18 (Omnipaque ONCE .ROUTE 21:50 22:06 300mg/ ml) 12/01/18 21:51 Procedures/MDM CT scan report is not been officially dictated however I reviewed the scan findings on PACS system and there is dilated small bowel loops up to 5 cm in diameter Spoke with Dr. Ramirez of general surgery. Will insert NG tube now. Will admit to panel Departure Diagnosis: Primary Impression: Small bowel obstruction Additional Impression: Abdominal pain Abdominal location: generalized Qualified Codes: R10.84 - Generalized abdominal pain Condition: Stable JARROD MILLS DO Dec 01, 2018 22:11
[2018-12-01] MEDS ORDERED: SOD CHLORIDE 0.9% 1,000 ML IV SCH (22:45)
[2018-12-01] MEDS ORDERED: ACETAMINOPHEN 325 MG TAB PO PRN (23:00)
[2018-12-01] MEDS ORDERED: ONDANSETRON 4 MG INJ IV PRN (23:00)
[2018-12-01] MEDS ORDERED: LIDOCAINE 2% VISC 15 ML CUP PO ONE (23:00)
[2018-12-01] MEDS ORDERED: morphine 4 MG/ML VIAL IV STA ×2 (23:51→23:53)
--- NOTE | 2018-12-01 23:54 | HP ---
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 Patient presented to ER complaining of abdominal pain and and found to have partial SBO PLAN Keep n.p.o. with IV fluid NG tube to low intermittent suction Antiemetics and pain meds as needed PPI Awaiting surgical eval Result Diagram: 12/01/18209912/01/18 2100 Results 24hrs Laboratory Tests Test 12/01/18 21:00 White Blood Count 10.9 #H Red Blood Count 5.23 # Hemoglobin 14.0 # Hematocrit 43.6 # Mean Corpuscular Volume 83.4 Mean Corpuscular Hemoglobin 26.8 L Mean Corpuscular Hemoglobin Concent 32.1 Red Cell Distribution Width 14.7 H Platelet Count 411 # Mean Platelet Volume 9.3 Immature Granulocytes % 0.200 Neutrophils % 81.2 H Lymphocytes % 14.8 L Monocytes % 3.5 Eosinophils % 0.0 Basophils % 0.3 Nucleated Red Blood Cells % 0.0 Immature Granulocytes # 0.020 Neutrophils # 8.8 H Lymphocytes # 1.6 Monocytes # 0.4 Eosinophils # 0.0 Basophils # 0.0 Nucleated Red Blood Cells # 0.0 Sodium Level 146 H Potassium Level 3.7 Chloride Level 104 Carbon Dioxide Level 27 Anion Gap 15 H Blood Urea Nitrogen 19 Creatinine 0.94 Est Glomerular Filtrat Rate mL/min > 60 Glucose Level 168 Calcium Level 10.6 H Total Bilirubin 0.2 Direct Bilirubin 0.00 Indirect Bilirubin 0.2 Aspartate Amino Transf (AST/SGOT) 38 Alanine Aminotransferase (ALT/SGPT) 23 Alkaline Phosphatase 91 Total Protein 7.9 Albumin 4.7 Globulin 3.20 Albumin/Globulin Ratio 1.46 Lipase 131 HPI/ROS Admit Date/Time Admit Date/Time Hx of Present Illness This is a 63-year-old female with a history of pelvic carcinoma status post surgery as well as chemo and radiation, history of laparoscopic converted to open incarcerated ventral hernia repair in 2016, SBO, GERD, gastritis with erosion who presented to ER complaining of abdominal pain and vomiting.pain is been going on for a couple of days, worsened yesterday. She vomited about 10 times since yesterday including in the ER. Emesis described as nonbloody, but bilious. Denied constipation. She has had 3 bowel movements since presented to the ER. She also said that she had a bowel movement prior to coming to the ER. CT abdomen/pelvis shows partial or early distal small bowel obstruction with transition point in the right mid to lower abdomen. Several loops of large and small bowel demonstrate short segment circumferential wall thickening indicating segmental enterocolitis. Patient was last admitted here for SBO in 2016, which was conservatively managed. Hernia repair was in 2015. Patient also has colonoscopy few months after hernia repair which showed Severe adhesions from previous hysterectomy on the sigmoid colon as well as a finding of radiation proctitis and sigmoiditis. PMH/Family/Social Past Medical History PMH/Family/Social Past Medical History Medical History: other (see hpi) Coded Allergies: No Known Drug Allergy (Verified Allergy, Unknown, 07/19/16) Past Surgical History Past Surgical Hx: other (see hpi) Family History Significant Family History: no pertinent family hx Social History Alcohol Use: other Smoking Status: Unknown if ever smoked Drug Use: other Medications Current Medications Sodium Chloride 1,000 ml @ 80 mls/hr [id number] IV ; Start 12/01/18 at 22:45; Stop 12/02/18 at 11:14 Ondansetron HCl (Zofran Inj) 4 mg BRIDGE ORDER PRN IV NAUSEA AND/OR VOMITING; Start 12/01/18 at 23:00; Stop 12/02/18 at 22:59 Acetaminophen (Tylenol Tab) 650 mg ER BRIDGE PRN PO MILD PAIN(1-3)OR ELEVATED TEMP; Start 12/01/18 at 23:00; Stop 12/02/18 at 22:59 Morphine Sulfate (morphine) 3 mg ONCE STAT IV ; Start 12/01/18 at 23:51; Stop 12/01/18 at 23:52; Status UNV Coded Allergies: diclofenac (Unverified Allergy, Severe, sob; itchiness, 12/01/18) Past Surgical History Past Surgical Hx: other Family History Significant Family History: no pertinent family hx Social History Smoking Status: Never smoker Exam/Review of Systems Vital Signs Vitals Vital Signs Date Temp Pulse Resp B/P (MAP) Pulse Ox O2 O2 Flow FiO2 Time Delivery Rate 12/01/18 78 16 126/84 99 Room Air 23:42 (98) 12/01/18 97.9 20:42 Exam Constitutional: alert, oriented, well developed Head: normocephalic, atraumatic Eyes: EOMI, PERRL ENMT: other (NG tube in place with minimal output.) Gastrointestinal: soft, non-tender Extremities: normal pulses DIONI DAMICO MD Dec 01, 2018 23:54
[2018-12-02] MEDS ORDERED: NACL 0.9% 3 ML SYG IV SCH
[2018-12-02] MEDS ORDERED: ONDANSETRON 4 MG INJ IV PRN
[2018-12-02] MEDS ORDERED: morphine 2 MG INJ IV PRN
[2018-12-02] MEDS ORDERED: ALBUTEROL/IPRATROPIUM (NEB) 3 ML AMP HHN PRN
[2018-12-02 01:15] VITALS: BP 119/76; PULSE 76; RESP 18
[2018-12-02] MEDS ORDERED: morphine SULFATE/PF (2 MG/2 ML) SYG IV PRN (01:40)
[2018-12-02] MEDS: DEXTROSE 5%-0.45% NACL 1,000 ML IV SCH ×3 (01:50→21:17)
[2018-12-02 02:00] VITALS: BP 118/75; PULSE 77; RESP 18
[2018-12-02 03:00] VITALS: Ht 165.1 cm; Wt 60.5 kg
--- NOTE | 2018-12-02 06:33 | NUR ---
0110 Pt arrived on unit from ED. Stable, aaox4 complaining of abd pain diagnosis of small bowel obstruction. Admission questions completed, pt Emergency contact Skyler Pereira whom the pt lives with, phone number [phone]. Pt oriented to [facility] safety protocols and procedures including hourly rounding and an active bed alarm. Pt denies questions at this time. notified of pt arrive, admission orders received. approx. 0230 Skin assessment completed. No significant findings. Skin intact. NGT R nare on low intermittent suction. SCD applied to pt. IV D5 1/2 NS administered as well as morphine for abd pain. 0300 Pt voices fatigue and sleepiness. Reports relief of adb pain at this moment. Nursing will continue to monitor. 0400 Pt sleeping comfortably, respirations regular and even. Nursing will continue to monitor. 0500 Pt denies needs at this time. 0600 Pt stable throughout the night, no significant changes in status. 0635 Nursing will endorse to morning shift to ensure continuity of care.
[2018-12-02 08:20] VITALS: BP 101/56; PULSE 71; RESP 18
[2018-12-02] MEDS: FAMOTIDINE 20 MG INJ IV SCH ×3 (08:48→21:13)
--- NOTE | 2018-12-02 11:18 | NUR ---
NURSE NOTE: Pt off the unit for XR small bowel through
[2018-12-02] MEDS ORDERED: DIATR MEGLU/DIATRIZOATE SODIUM 120 ML BTL ONE ×2 (11:22→11:31)
--- NOTE | 2018-12-02 11:45 | CONS ---
Date/Time of Note Date/Time of Note DATE: 12/02/18 TIME: 11:41 Assessment/Plan Assessment/Plan Assessment/Plan Doubt small bowel obstruction, as patient symptoms have resolved Small bowel follow-through is pending. Further recommendations will be based on patient's further workup and clinical course. I will follow with you. Result Diagram: 12/02/18 0550 12/02/18 0550 Results 24hrs Laboratory Tests Test 12/01/18 21:00 12/02/18 05:50 White Blood Count 10.9 #H 5.2 # Red Blood Count 5.23 # 4.59 Hemoglobin 14.0 # 12.4 Hematocrit 43.6 # 38.1 Mean Corpuscular Volume 83.4 83.0 Mean Corpuscular Hemoglobin 26.8 L 27.0 L Mean Corpuscular Hemoglobin Concent 32.1 32.5 Red Cell Distribution Width 14.7 H 15.1 H Platelet Count 411 # 344 Mean Platelet Volume 9.3 9.5 Immature Granulocytes % 0.200 0.200 Neutrophils % 81.2 H 80.0 H Lymphocytes % 14.8 L 12.1 L Monocytes % 3.5 7.5 Eosinophils % 0.0 0.0 Basophils % 0.3 0.2 Nucleated Red Blood Cells % 0.0 0.0 Immature Granulocytes # 0.020 0.010 Neutrophils # 8.8 H 4.2 Lymphocytes # 1.6 0.6 L Monocytes # 0.4 0.4 Eosinophils # 0.0 0.0 Basophils # 0.0 0.0 Nucleated Red Blood Cells # 0.0 0.0 Sodium Level 146 H 145 H Potassium Level 3.7 3.9 Chloride Level 104 107 Carbon Dioxide Level 27 27 Anion Gap 15 H 11 Blood Urea Nitrogen 19 21 H Creatinine 0.94 0.89 Est Glomerular Filtrat Rate mL/min > 60 > 60 Glucose Level 168 180 Calcium Level 10.6 H 9.3 Total Bilirubin 0.2 0.2 Direct Bilirubin 0.00 0.00 Indirect Bilirubin 0.2 0.2 Aspartate Amino Transf (AST/SGOT) 38 32 Alanine Aminotransferase (ALT/SGPT) 23 21 Alkaline Phosphatase 91 61 Total Protein 7.9 6.8 # Albumin 4.7 4.0 Globulin 3.20 2.80 Albumin/Globulin Ratio 1.46 1.42 Lipase 131 Phosphorus Level 4.1 Magnesium Level 2.0 Consultation Date/Type/Reason Admit Date/Time Date of Consultation: Dec 02, 2018 Type of Consult General surgery Reason for Consultation Small bowel obstruction Hx of Present Illness The patient is a 63-year-old female whose original abdominal operation was EDIN/BSO for ovarian carcinoma. She has done relatively well. She has had a hospitalized in the past for small bowel obstruction which resolved with medical management. She now presents with nominal pain nausea and cramping. A CT scan yesterday suggested a small bowel obstruction. Her last bowel movement was yesterday. She states that since her admission her symptoms have completely disappeared. Constitutional: no complaints, improved Eyes: no complaints ENT: no complaints Respiratory: no complaints Cardiovascular: no complaints Gastrointestinal: pain, nausea Genitourinary: no complaints Musculoskeletal: no complaints Skin: no complaints Neurologic: no complaints Endocrine: no complaints Lymphatic: no complaints Past Medical History Medical History: other (Ovarian carcinoma) Medications Current Medications Ondansetron HCl (Zofran Inj) 4 mg BRIDGE ORDER PRN IV NAUSEA AND/OR VOMITING Last administered on 12/02/18at 00:18; Admin Dose 4 MG; Start 12/01/18 at 23:00; Stop 12/02/18 at 22:59 Acetaminophen (Tylenol Tab) 650 mg ER BRIDGE PRN PO MILD PAIN(1-3)OR ELEVATED TEMP; Start 12/01/18 at 23:00; Stop 12/02/18 at 22:59 Dextrose/Sodium Chloride 1,000 ml @ 100 mls/hr Q10H IV Last administered on 12/02/18at 11:02; Admin Dose 100 MLS/HR; Start 12/01/18 at 23:51 IV Flush (NS 3 ml) 3 ml PER PROTOCOL IV ; Start 12/02/18 at 00:00 Ondansetron HCl (Zofran Inj) 4 mg Q6H PRN IV NAUSEA AND/OR VOMITING; Start 12/02/18 at 00:00 Famotidine (Pepcid Iv) 20 mg Q12 IV Last administered on 12/02/18at 08:48; Admin Dose 20 MG; Start 12/02/18 at 00:00 Albuterol/ Ipratropium (Duoneb) 3 ml Q2H RESP THERAPY PRN HHN SHORTNESS OF BREATH; Start 12/02/18 at 00:00 Morphine Sulfate (morphine SULFATE (PF)) 2 mg Q4H PRN IV PAIN Last administered on 12/02/18at 01:46; Admin Dose 2 MG; Start 12/02/18 at 01:40 Allergies: Coded Allergies: diclofenac (Unverified Allergy, Severe, sob; itchiness, 12/01/18) Past Surgical History Past Surgical Hx: other (EDIN/BSO) Family History Significant Family History: no pertinent family hx Social History Alcohol Use: none Smoking Status: Unknown if ever smoked Exam/Review of Systems Vital Signs Vitals Vital Signs Date Temp Pulse Resp B/P (MAP) Pulse Ox O2 O2 Flow FiO2 Time Delivery Rate 12/02/18 97.8 71 18 101/56 96 08:20 (71) 12/01/18 Room Air 23:42 Intake and Output 12/01/18 12/01/18 12/02/18 1515:00 23:00 07:00 IntakeIntake Total 1100 ml BalanceBalance 1100 ml Exam Constitutional: alert, oriented Psych: no complaints Head: normocephalic ENMT: nl external ears & nose Neck: supple Respiratory: clear to auscultation Cardiovascular: regular rate and rhythm Gastrointestinal: soft, non-tender, surgical scars (There is a vertical midline scar from xiphoid to pubis without hernias. There are no abdominal masses. The abdomen is soft and nontender.) Musculoskeletal: nl extremities to inspection Extremities: normal pulses Neurological: SCOUT LEASER II-XII intact Medications Medications Current Medications Ondansetron HCl (Zofran Inj) 4 mg BRIDGE ORDER PRN IV NAUSEA AND/OR VOMITING Last administered on 12/02/18at 00:18; Admin Dose 4 MG; Start 12/01/18 at 23:00; Stop 12/02/18 at 22:59 Acetaminophen (Tylenol Tab) 650 mg ER BRIDGE PRN PO MILD PAIN(1-3)OR ELEVATED TEMP; Start 12/01/18 at 23:00; Stop 12/02/18 at 22:59 Dextrose/Sodium Chloride 1,000 ml @ 100 mls/hr Q10H IV Last administered on 12/02/18at 11:02; Admin Dose 100 MLS/HR; Start 12/01/18 at 23:51 IV Flush (NS 3 ml) 3 ml PER PROTOCOL IV ; Start 12/02/18 at 00:00 Ondansetron HCl (Zofran Inj) 4 mg Q6H PRN IV NAUSEA AND/OR VOMITING; Start 12/02/18 at 00:00 Famotidine (Pepcid Iv) 20 mg Q12 IV Last administered on 12/02/18at 08:48; Admin Dose 20 MG; Start 12/02/18 at 00:00 Albuterol/ Ipratropium (Duoneb) 3 ml Q2H RESP THERAPY PRN HHN SHORTNESS OF BREATH; Start 12/02/18 at 00:00 Morphine Sulfate (morphine SULFATE (PF)) 2 mg Q4H PRN IV PAIN Last administered on 12/02/18at 01:46; Admin Dose 2 MG; Start 12/02/18 at 01:40 ALEM HARDY MD Dec 02, 2018 11:45
--- NOTE | 2018-12-02 12:12 | PN ---
Date/Time of Note Date/Time of Note DATE: 12/02/18 TIME: 12:11 Assessment/Plan VTE Prophylaxis Risk score (from Ns)>0 risk: 3 [place]CD applied (from [facility] [place] Yes Pharmacological prophylaxis: NA/contraindicated Pharm contraindication: low risk/ambulating Lines/Catheters IV [facility] Saline Lock Urinary Cath still in place: No Assessment/Plan Hospital Course SUBJECTIVE: Patient with improvement in symptoms. No vomiting or abdominal pain. Has mild nausea and improved with Zofran. She is getting a small bowel series today. OBJECTIVE: Vital signs-see below PHYSICAL EXAM: Constitutional: Well-developed, adequately built, lying in bed comfortably. Psych: nl mood/affect, no complaints Head: atraumatic, normocephalic Eyes: nl conjunctiva, nl sclera ENMT: mucosa pink and moist, nl external ears & nose Neck: non-tender, supple Respiratory: clear to auscultation, normal air movement Cardiovascular: nl pulses, regular rate and rhythm Gastrointestinal: non-tender, soft, bowel sounds active in all 4 quadrants. +Old surgical scar. Musculoskeletal/extremities: nl extremities to inspection, motor strength equal bilaterally, no focal deficit. Normal pulses,no cyanosis, no edema. Neurological: Alert oriented 3,nl speech, nl strength Skin: nl turgor ASSESSMENT/PLAN:63-year-old female with a past medical history of ovarian carcinoma, status post EDIN/BSO, history of SBO, presented with generalized abdominal pain associated with nausea, concerning for small bowel obstruction. 1. Possible SBO -Symptoms resolved. Appreciate surgery recommendation and patient is getting a small bowel series. -NGT discontinuation and diet advancement per surgery 2. Hypernatremia, likely dehydration. -Improved. -Continue fluids until patient cleared for p.o. 3.History of ovarian carcinoma, status post EDIN/BSO -Outpatient follow-up DVT prophylaxis: SCDs PUD prophylaxis: Pepcid CODE STATUS: Full code Diet: N.p.o. for now. Diet advancement per surgery Disposition: Continue current medical management await for small bowel series result to start diet. Patient is seen in collaboration with . Result Diagram: 12/02/18 0550 12/02/18 0550 Results 24hrs Laboratory Tests Test 12/01/18 21:00 12/02/18 05:50 White Blood Count 10.9 #H 5.2 # Red Blood Count 5.23 # 4.59 Hemoglobin 14.0 # 12.4 Hematocrit 43.6 # 38.1 Mean Corpuscular Volume 83.4 83.0 Mean Corpuscular Hemoglobin 26.8 L 27.0 L Mean Corpuscular Hemoglobin Concent 32.1 32.5 Red Cell Distribution Width 14.7 H 15.1 H Platelet Count 411 # 344 Mean Platelet Volume 9.3 9.5 Immature Granulocytes % 0.200 0.200 Neutrophils % 81.2 H 80.0 H Lymphocytes % 14.8 L 12.1 L Monocytes % 3.5 7.5 Eosinophils % 0.0 0.0 Basophils % 0.3 0.2 Nucleated Red Blood Cells % 0.0 0.0 Immature Granulocytes # 0.020 0.010 Neutrophils # 8.8 H 4.2 Lymphocytes # 1.6 0.6 L Monocytes # 0.4 0.4 Eosinophils # 0.0 0.0 Basophils # 0.0 0.0 Nucleated Red Blood Cells # 0.0 0.0 Sodium Level 146 H 145 H Potassium Level 3.7 3.9 Chloride Level 104 107 Carbon Dioxide Level 27 27 Anion Gap 15 H 11 Blood Urea Nitrogen 19 21 H Creatinine 0.94 0.89 Est Glomerular Filtrat Rate mL/min > 60 > 60 Glucose Level 168 180 Calcium Level 10.6 H 9.3 Total Bilirubin 0.2 0.2 Direct Bilirubin 0.00 0.00 Indirect Bilirubin 0.2 0.2 Aspartate Amino Transf (AST/SGOT) 38 32 Alanine Aminotransferase (ALT/SGPT) 23 21 Alkaline Phosphatase 91 61 Total Protein 7.9 6.8 # Albumin 4.7 4.0 Globulin 3.20 2.80 Albumin/Globulin Ratio 1.46 1.42 Lipase 131 Phosphorus Level 4.1 Magnesium Level 2.0 Exam/Review of Systems Vital Signs Vitals Vital Signs Date Temp Pulse Resp B/P (MAP) Pulse Ox O2 O2 Flow FiO2 Time Delivery Rate 12/02/18 97.8 71 18 101/56 96 08:20 (71) 12/01/18 Room Air 23:42 Intake and Output 12/01/18 12/01/18 12/02/18 1414:59 22:59 06:59 IntakeIntake Total 1100 ml BalanceBalance 1100 ml Medications Medications Current Medications Ondansetron HCl (Zofran Inj) 4 mg BRIDGE ORDER PRN IV NAUSEA AND/OR VOMITING Last administered on 12/02/18at 00:18; Admin Dose 4 MG; Start 12/01/18 at 23:00; Stop 12/02/18 at 22:59 Acetaminophen (Tylenol Tab) 650 mg ER BRIDGE PRN PO MILD PAIN(1-3)OR ELEVATED TEMP; Start 12/01/18 at 23:00; Stop 12/02/18 at 22:59 Dextrose/Sodium Chloride 1,000 ml @ 100 mls/hr Q10H IV Last administered on 12/02/18at 11:02; Admin Dose 100 MLS/HR; Start 12/01/18 at 23:51 IV Flush (NS 3 ml) 3 ml PER PROTOCOL IV ; Start 12/02/18 at 00:00 Ondansetron HCl (Zofran Inj) 4 mg Q6H PRN IV NAUSEA AND/OR VOMITING Last administered on 12/02/18at 12:00; Admin Dose 4 MG; Start 12/02/18 at 00:00 Famotidine (Pepcid Iv) 20 mg Q12 IV Last administered on 12/02/18at 08:48; Admin Dose 20 MG; Start 12/02/18 at 00:00 Albuterol/ Ipratropium (Duoneb) 3 ml Q2H RESP THERAPY PRN HHN SHORTNESS OF BREATH; Start 12/02/18 at 00:00 Morphine Sulfate (morphine SULFATE (PF)) 2 mg Q4H PRN IV PAIN Last administered on 12/02/18at 01:46; Admin Dose 2 MG; Start 12/02/18 at 01:40 ZUHAIR STEVENSON NP Dec 02, 2018 12:12
--- NOTE | 2018-12-02 14:42 | NUR ---
NURSE NOTE: Informed Dr. Ramirez regarding results of the XR small bowel series. Received orders. Will continue to monitor patient.
[2018-12-02 14:57] VITALS: BP 98/61; PULSE 73; RESP 18
[2018-12-02] MEDS ORDERED: ACETAMINOPHEN 325 MG TAB PO PRN (16:30)
--- NOTE | 2018-12-02 16:39 | CONS ---
Date/Time of Note Date/Time of Note DATE: 12/02/18 TIME: 11:41 Assessment/Plan Assessment/Plan Assessment/Plan Acute cholecystitis Plan: Laparoscopic cholecystectomy, possible open I have discussed the procedure, indications, alternatives and risks in detail with the patient who has an excellent understanding of the nature of her situation and agrees to the proposed plan of therapy as outlined. Result Diagram: 12/02/18 0550 12/02/18 0550 Results 24hrs Laboratory Tests Test 12/01/18 21:00 12/02/18 05:50 White Blood Count 10.9 #H 5.2 # Red Blood Count 5.23 # 4.59 Hemoglobin 14.0 # 12.4 Hematocrit 43.6 # 38.1 Mean Corpuscular Volume 83.4 83.0 Mean Corpuscular Hemoglobin 26.8 L 27.0 L Mean Corpuscular Hemoglobin Concent 32.1 32.5 Red Cell Distribution Width 14.7 H 15.1 H Platelet Count 411 # 344 Mean Platelet Volume 9.3 9.5 Immature Granulocytes % 0.200 0.200 Neutrophils % 81.2 H 80.0 H Lymphocytes % 14.8 L 12.1 L Monocytes % 3.5 7.5 Eosinophils % 0.0 0.0 Basophils % 0.3 0.2 Nucleated Red Blood Cells % 0.0 0.0 Immature Granulocytes # 0.020 0.010 Neutrophils # 8.8 H 4.2 Lymphocytes # 1.6 0.6 L Monocytes # 0.4 0.4 Eosinophils # 0.0 0.0 Basophils # 0.0 0.0 Nucleated Red Blood Cells # 0.0 0.0 Sodium Level 146 H 145 H Potassium Level 3.7 3.9 Chloride Level 104 107 Carbon Dioxide Level 27 27 Anion Gap 15 H 11 Blood Urea Nitrogen 19 21 H Creatinine 0.94 0.89 Est Glomerular Filtrat Rate mL/min > 60 > 60 Glucose Level 168 180 Calcium Level 10.6 H 9.3 Total Bilirubin 0.2 0.2 Direct Bilirubin 0.00 0.00 Indirect Bilirubin 0.2 0.2 Aspartate Amino Transf (AST/SGOT) 38 32 Alanine Aminotransferase (ALT/SGPT) 23 21 Alkaline Phosphatase 91 61 Total Protein 7.9 6.8 # Albumin 4.7 4.0 Globulin 3.20 2.80 Albumin/Globulin Ratio 1.46 1.42 Lipase 131 Phosphorus Level 4.1 Magnesium Level 2.0 Consultation Date/Type/Reason Admit Date/Time Date of Consultation: Dec 02, 2018 Type of Consult General surgery Reason for Consultation Acute cholecystitis Hx of Present Illness The patient is an otherwise healthy 46-year-old female who presents with right upper quadrant and midepigastric abdominal pain secondary to gallstones. She is transferred here for insurance reasons and for continuance of care. She has had no fevers chills or jaundice. Constitutional: no complaints Eyes: no complaints ENT: no complaints Respiratory: no complaints Gastrointestinal: pain (Right upper quadrant) Genitourinary: no complaints Musculoskeletal: no complaints Skin: no complaints Neurologic: no complaints Endocrine: no complaints Lymphatic: no complaints Past Medical History Medical History: gallstones Medications Current Medications Ondansetron HCl (Zofran Inj) 4 mg BRIDGE ORDER PRN IV NAUSEA AND/OR VOMITING Last administered on 12/02/18at 00:18; Admin Dose 4 MG; Start 12/01/18 at 23:00; Stop 12/02/18 at 22:59 Acetaminophen (Tylenol Tab) 650 mg ER BRIDGE PRN PO MILD PAIN(1-3)OR ELEVATED TEMP; Start 12/01/18 at 23:00; Stop 12/02/18 at 22:59 Dextrose/Sodium Chloride 1,000 ml @ 100 mls/hr Q10H IV Last administered on 12/02/18at 11:02; Admin Dose 100 MLS/HR; Start 12/01/18 at 23:51 IV Flush (NS 3 ml) 3 ml PER PROTOCOL IV ; Start 12/02/18 at 00:00 Ondansetron HCl (Zofran Inj) 4 mg Q6H PRN IV NAUSEA AND/OR VOMITING; Start 12/02/18 at 00:00 Famotidine (Pepcid Iv) 20 mg Q12 IV Last administered on 12/02/18at 08:48; Admin Dose 20 MG; Start 12/02/18 at 00:00 Albuterol/ Ipratropium (Duoneb) 3 ml Q2H RESP THERAPY PRN HHN SHORTNESS OF BREATH; Start 12/02/18 at 00:00 Morphine Sulfate (morphine SULFATE (PF)) 2 mg Q4H PRN IV PAIN Last administered on 12/02/18at 01:46; Admin Dose 2 MG; Start 12/02/18 at 01:40 Allergies: Coded Allergies: diclofenac (Unverified Allergy, Severe, sob; itchiness, 12/01/18) Past Surgical History Past Surgical Hx: no surgical history, other Family History Significant Family History: no pertinent family hx Social History Alcohol Use: none Smoking Status: Unknown if ever smoked Exam/Review of Systems Vital Signs Vitals Vital Signs Date Temp Pulse Resp B/P (MAP) Pulse Ox O2 O2 Flow FiO2 Time Delivery Rate 12/02/18 97.8 71 18 101/56 96 08:20 (71) 12/01/18 Room Air 23:42 Intake and Output 12/01/18 12/01/18 12/02/18 1515:00 23:00 07:00 IntakeIntake Total 1100 ml BalanceBalance 1100 ml Exam Constitutional: alert, oriented Psych: no complaints Head: normocephalic Eyes: nl conjunctiva ENMT: nl external ears & nose Neck: supple Respiratory: clear to auscultation Cardiovascular: regular rate and rhythm Gastrointestinal: tender (Right upper quadrant) Musculoskeletal: nl extremities to inspection Extremities: normal pulses 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 Skin: nl turgor Medications Medications Current Medications Ondansetron HCl (Zofran Inj) 4 mg BRIDGE ORDER PRN IV NAUSEA AND/OR VOMITING Last administered on 12/02/18at 00:18; Admin Dose 4 MG; Start 12/01/18 at 23:00; Stop 12/02/18 at 22:59 Acetaminophen (Tylenol Tab) 650 mg ER BRIDGE PRN PO MILD PAIN(1-3)OR ELEVATED TEMP; Start 12/01/18 at 23:00; Stop 12/02/18 at 22:59 Dextrose/Sodium Chloride 1,000 ml @ 100 mls/hr Q10H IV Last administered on 12/02/18at 11:02; Admin Dose 100 MLS/HR; Start 12/01/18 at 23:51 IV Flush (NS 3 ml) 3 ml PER PROTOCOL IV ; Start 12/02/18 at 00:00 Ondansetron HCl (Zofran Inj) 4 mg Q6H PRN IV NAUSEA AND/OR VOMITING; Start 12/02/18 at 00:00 Famotidine (Pepcid Iv) 20 mg Q12 IV Last administered on 12/02/18at 08:48; Admin Dose 20 MG; Start 12/02/18 at 00:00 Albuterol/ Ipratropium (Duoneb) 3 ml Q2H RESP THERAPY PRN HHN SHORTNESS OF BREATH; Start 12/02/18 at 00:00 Morphine Sulfate (morphine SULFATE (PF)) 2 mg Q4H PRN IV PAIN Last administered on 12/02/18at 01:46; Admin Dose 2 MG; Start 12/02/18 at 01:40 ALEM HARDY MD Dec 02, 2018 16:36
--- NOTE | 2018-12-02 18:04 | NUR ---
NURSE NOTE: NO ACUTE CHANGES. PT IS AXOX4. NO SIGNS OF DISTRESS. PT TOLERATED WELL CLEAR LIQUID DIET. C/O HEADACHE, TYLENOL GIVEN ORDERED. PT NGT WAS DISCONTINUED ORDERED. BED ALARM ON. CALL LIGHT WITHIN REACH. CLARIFIED WITH DR. HARDY REGARDING LAP BRANDY ORDER, CANCELLED PER MD INCORRECT PT.
[2018-12-02 20:00] VITALS: BP 89/57; PULSE 71; RESP 18
[2018-12-02] MEDS ORDERED: ZOLPIDEM 5 MG TAB PO ONE (21:38)
[2018-12-03 02:00] VITALS: BP 85/50; PULSE 81; RESP 18
[2018-12-03] MEDS: DEXTROSE 5%-0.45% NACL 1,000 ML IV SCH (05:25)
--- NOTE | 2018-12-03 05:37 | NUR ---
VS stable. No acute changes or s/s of respiratory distress during shift. Pt denied having pain. Fall precautions observed with call light within reach. Pt tolerating clear liquids with no N/V and now on a full liquid diet. Plan is for pt to d/c when tolerating soft diet with no N/v. Will endorse continuity of care to oncoming nurse.
[2018-12-03 08:11] VITALS: BP 104/56; PULSE 74; RESP 18
[2018-12-03] MEDS: FAMOTIDINE 20 MG INJ IV SCH (09:00)
[2018-12-03] MEDS ORDERED: POTASSIUM CHLORIDE (SR) 20 MEQ TAB PO STA (11:42)
--- NOTE | 2018-12-03 12:01 | QN ---
Documentation Comment Small bowel follow-through is unremarkable for obstruction Tolerating diet nicely Abdominal examination is benign Cleared for discharge from surgical standpoint ALEM HARDY MD Dec 03, 2018 12:01
--- NOTE | 2018-12-03 12:09 | PDOCDIS ---
Discharge Instructions CONDITION [id number] Patient Condition: [id number] Stable HOME CARE INSTRUCTIONS: [id number] Diet Instructions: [id number] Regular FOLLOW UP/APPOINTMENTS Follow-up Plan Follow-up with primary care physician in 1 week ZUHAIR STEVENSON NP Dec 03, 2018 12:09
--- NOTE | 2018-12-03 12:14 | DS ---
Date/Time of Note Date/Time of Note DATE: 12/03/18 TIME: 12:12 Discharge Summary Admission/Discharge Info Admit Date/Time Dec 01, 2018 at 22:48 Discharge Date/Time Discharge Diagnosis 1. Possible SBO. Resolved 2. Hypernatremia, likely dehydration.resolved 3.History of ovarian carcinoma, status post EDIN/BSO Patient Condition: Stable Consults Dr. Ramirez, surgery Procedures 12/02/2018. Small bowel series. IMPRESSION: No evidence of bowel obstruction. Contrast passes into the colon within 30 minutes. 12/01/2018. CT abdomen and pelvis. IMPRESSION: Partial or early distal small bowel obstruction with transition point in the right mid to lower abdomen. Several loops of large and small bowel demonstrate short segment circumferential wall thickening indicating segmental enterocolitis. Slight increase in abdominopelvic free fluid which is now partially loculated. Hospital Course 63-year-old female with a past medical history of ovarian carcinoma, status post EDIN/BSO, history of SBO, presented with generalized abdominal pain associated with nausea, concerning for small bowel obstruction. Patient was kept on NG tube decompression, bowel rest, IV fluids. Her symptoms improved. She was being followed by surgeon. A small bowel series showed no further evidence of obstruction. Patient was able to pass flatus and had normal bowel movement. She was started on a clear diet and advance to soft diet. There was no further nausea, vomiting or abdominal pain. Stable labs and vital signs. At this time, patient is stable for outpatient follow-up. Approximately 60 m spent on coordinating the discharge on this patient. Patient is seen in collaboration with Dr. Rousseau. Home Meds Reported Medications Omeprazole* (Omeprazole*) 20 Mg Capsule., 20 MG PO DAILY, #30 CAP 07/13/17 Gabapentin* (Gabapentin*) 300 Mg Capsule, 300 MG PO BID, #60 CAP 04/25/16 Discontinued Reported Medications Tramadol HCl (Tramadol HCl) 50 Mg Tablet, 50 MG PO Q6H PRN for PAIN LEVEL 1-5, #120 TAB 08/02/17 Zolpidem Tartrate* (Zolpidem Tartrate*) 10 Mg Tablet, 10 MG PO QHS PRN for INSOMNIA, #30 TAB 03/23/16 Follow-up Plan Follow-up with primary care physician in 1 week Primary Care Provider Josesito Stevenson MD Pending Labs Laboratory Tests Test 12/03/18 06:12 White Blood Count 5.0 10^3/ul (4.8-10.8) Red Blood Count 4.30 10^6/ul (4.20-5.40) Hemoglobin 11.6 g/dl (12.0-16.0) Hematocrit 36.8 % (37.0-47.0) Mean Corpuscular Volume 85.6 fl (82.0-101.0) Mean Corpuscular Hemoglobin 27.0 pg (29.0-33.0) Mean Corpuscular Hemoglobin Concent 31.5 g/dl (32.0-37.0) Red Cell Distribution Width 15.0 % (11.5-14.5) Platelet Count 301 10^3/UL (140-415) Mean Platelet Volume 10.1 fl (7.4-10.4) Immature Granulocytes % 0.200 % (0.001-0.429) Neutrophils % 50.7 % (39.0-77.0) Lymphocytes % 35.4 % (15.0-51.0) Monocytes % 8.7 % (0.0-11.0) Eosinophils % 4.6 % (0.0-7.0) Basophils % 0.4 % (0.0-2.0) Nucleated Red Blood Cells % 0.0 /100WBC (0.0-0.0) Immature Granulocytes # 0.010 10^3/ul (0.0-0.031) Neutrophils # 2.5 10^3/ul (1.6-7.5) Lymphocytes # 1.8 10^3/ul (0.8-2.9) Monocytes # 0.4 10^3/ul (0.3-0.9) Eosinophils # 0.2 10^3/ul (0.0-0.5) Basophils # 0.0 10^3/ul (0.0-0.1) Nucleated Red Blood Cells # 0.0 10^3/ul (0.0-0.0) Sodium Level 144 mmol/L (135-144) Potassium Level 3.4 mmol/L (3.5-5.1) Chloride Level 108 mmol/L (97-110) Carbon Dioxide Level 27 mmol/L (21-31) Anion Gap 9 (5-13) Blood Urea Nitrogen 16 mg/dl (7-20) Creatinine 0.89 mg/dl (0.44-1.00) Est Glomerular Filtrat Rate mL/min > 60 mL/min (>60) Glucose Level 99 mg/dl (70-220) Calcium Level 8.9 mg/dl (8.4-10.2) ZUHAIR STEVENSON NP Dec 03, 2018 12:14
--- NOTE | 2018-12-03 13:53 | NUR ---
Patient discharged home in stable condition, no signs of distress or shortness of breath. Denies Pain. Able to tolerate soft diet with no nausea, vomiting or pain. IV removed. Discussed discharge instructions and health care summary with patient. Patient stated she understood. No prescriptions given. Patient aware to continue with home medication and to follow up with her primary doctor in 1 week. Patient taken downstairs by wheel chair with all personal belongings. at ER entrance to pick her up.
== END 2018-12-03 14:00 | disposition home or self-care (01) | DRG 389 ==
LOC: E/R 20:40 → PP2 22:48 → CANRESERV 23:53
PROVIDERS: ADMIT Internal Medicine; ATTEND Internal Medicine
DX: K56.609 Unspecified intestinal obstruction, unspecified as to partial versus complete obstruction (principal); E87.0 Hyperosmolality and hypernatremia; E86.0 Dehydration; Z85.43 Personal history of malignant neoplasm of ovary
CPT/HCPCS: 36415; 71045; 74177; 74250; 80048; 80053; 83690; 83735; 84100; 85025; 96361; 96374; 96375; J1170; J2270; J2274; J2405; J7030; J7042; Q9967

== ENCOUNTER 2019-02-25 16:15 | Inpatient (IN) | payer MEDICAID ==
[~2019-02-25] VITALS: Ht 152.4 cm; Wt 62.4 kg
[~2019-02-25 16:15] MED LIST changes: -TRAM50TA2 PO; -ZOLP10TA5 PO
[2019-02-25] MEDS ORDERED: ONDANSETRON 4 MG INJ IV STA (19:51)
[2019-02-25] MEDS ORDERED: morphine 4 MG/ML VIAL IV STA (19:51)
[2019-02-25] MEDS ORDERED: SOD CHLORIDE 0.9% 1,000 ML IV STA (19:51)
[2019-02-25] MEDS ORDERED: GABA300C16 PO (21:16)
[2019-02-25] MEDS ORDERED: RANI150T5 PO (21:17)
[2019-02-25] MEDS ORDERED: OMEP20CA16 PO (21:17)
[2019-02-25] MEDS ORDERED: ONDANSETRON 4 MG INJ IV PRN (22:30)
[2019-02-25] MEDS ORDERED: ACETAMINOPHEN 325 MG TAB PO PRN (22:30)
--- NOTE | 2019-02-25 22:40 | ERD ---
ER Documentation Chief Complaint Chief Complaint abd pain w vomiting x2days; constipated also HPI is a 63-year-old female with a small bowel obstruction and gastritis who presents with abdominal pain. She has abdominal pain for the past 2 days. She says that it feels like her previous small bowel obstruction. Pain is 10 out of 10. She had 4 episodes of vomiting yesterday and 5 times today. She has had no treatment as of yet. ROS All systems reviewed and are negative except as per history of present illness. Medications Home Meds Reported Medications Ranitidine Hcl* (Ranitidine Hcl*) 150 Mg Tablet, 150 MG PO HS, #30 TAB 02/25/19 Omeprazole* (Omeprazole*) 20 Mg Capsule.dr, 20 MG PO BID, #60 CAP 02/25/19 Gabapentin* (Gabapentin*) 300 Mg Capsule, 300 MG PO BID, #60 CAP 02/25/19 Discontinued Reported Medications Omeprazole* (Omeprazole*) 20 Mg Capsule.dr, 20 MG PO DAILY, #30 CAP 07/13/17 Gabapentin* (Gabapentin*) 300 Mg Capsule, 300 MG PO BID, #60 CAP 04/25/16 Allergies Allergies: Coded Allergies: diclofenac (Unverified Allergy, Severe, sob; itchiness, 02/25/19) PMhx/Soc History of Surgery: Yes (Hysterectomy, Hernia Repair ) Anesthesia Reaction: No Hx Neurological Disorder: No Hx Respiratory Disorders: No Hx Cardiac Disorders: No Hx Psychiatric Problems: Yes (Anxiety ) Hx Miscellaneous Medical Probl: Yes (CHRONIC CONSTIPATION) Hx Alcohol Use: No Hx Substance Use: No Hx Tobacco Use: No Smoking Status: Never smoker FmHx Family History: No coronary disease Physical Exam Vitals Vital Signs Date Temp Pulse Resp B/P (MAP) Pulse Ox O2 O2 Flow FiO2 Time Delivery Rate 02/25/19 97.4 68 17 114/72 98 Room Air 19:56 (86) 02/25/19 97.8 78 20 116/71 99 16:18 (86) Physical Exam Const: No acute distress Head: Atraumatic Eyes: Normal Conjunctiva ENT: Normal External Ears, Nose and Mouth. Neck: Full range of motion. No meningismus. Resp: Clear to auscultation bilaterally Cardio: Regular rate and rhythm, no murmurs Abd: Diffuse tenderness to palpation Skin: No petechiae or rashes Back: No midline or flank tenderness Ext: No cyanosis, or edema Neur: Awake and alert Psych: Normal Mood and Affect Result Diagram: 02/25/19204602/25/192046 Results 24 hrs Laboratory Tests Test 02/25/19 20:47 02/25/19 22:07 White Blood Count 3.4 10^3/ul Red Blood Count 4.95 10^6/ul Hemoglobin 13.4 g/dl Hematocrit 42.6 % Mean Corpuscular Volume 86.1 fl Mean Corpuscular Hemoglobin 27.1 pg Mean Corpuscular Hemoglobin Concent 31.5 g/dl Red Cell Distribution Width 15.1 % Platelet Count 306 10^3/UL Mean Platelet Volume 10.6 fl Immature Granulocytes % 0.300 % Neutrophils % % Lymphocytes % % Monocytes % % Eosinophils % % Basophils % % Nucleated Red Blood Cells % 0.0 /100WBC Immature Granulocytes # 0.010 10^3/ul Neutrophils # 10^3/ul Lymphocytes # 10^3/ul Monocytes # 10^3/ul Eosinophils # 10^3/ul Basophils # 10^3/ul Nucleated Red Blood Cells # 10^3/ul Prothrombin Time 13.3 Sec Prothrombin Time Ratio 1.0 INR International Normalized Ratio 1.00 Activated Partial Thromboplast Time 28.4 Sec Sodium Level 144 mmol/L Potassium Level 4.0 mmol/L Chloride Level 104 mmol/L Carbon Dioxide Level 26 mmol/L Anion Gap 14 Blood Urea Nitrogen 21 mg/dl Creatinine 0.95 mg/dl Est Glomerular Filtrat Rate mL/min 60 mL/min Glucose Level 116 mg/dl Calcium Level 9.7 mg/dl Total Bilirubin 0.5 mg/dl Direct Bilirubin 0.00 mg/dl Indirect Bilirubin 0.5 mg/dl Aspartate Amino Transf (AST/SGOT) 35 IU/L Alanine Aminotransferase (ALT/SGPT) 13 IU/L Alkaline Phosphatase 75 IU/L Troponin I < 0.012 ng/ml Total Protein 8.2 g/dl Albumin 4.5 g/dl Globulin 3.70 g/dl Albumin/Globulin Ratio 1.21 Lipase 74 U/L Urine Color YELLOW Urine Clarity SLIGHTLY CLOUDY Urine pH 5.0 Urine Specific [place] 1.027 Urine Ketones 2+ mg/dL Urine Nitrite NEGATIVE mg/dL Urine Bilirubin NEGATIVE mg/dL Urine Urobilinogen NEGATIVE mg/dL Urine Leukocyte Esterase NEGATIVE [place]/ul Urine Microscopic RBC 4 /HPF Urine Microscopic WBC 6 /HPF Urine Squamous Epithelial Cells FEW /HPF Urine Bacteria FEW /HPF Urine Mucus MANY /HPF Urine Hemoglobin NEGATIVE mg/dL Urine Glucose NEGATIVE mg/dL Urine Total Protein NEGATIVE mg/dl Current Medications Medications Dose Sig/Gregoria Start Time Status Last (Trade) Ordered Route PRN Stop Time Admin Dose Reason Admin Sodium 1,000 ml @ Q1H STAT 02/25/19 DC Chloride 1,000 mls/hr IV 19:51 02/25/19 20:50 Morphine 4 mg ONCE STAT 02/25/19 DC 02/25/19 Sulfate IV 19:51 20:24 (morphine) 02/25/19 19:52 Ondansetron 4 mg ONCE STAT 02/25/19 DC 02/25/19 HCl (Zofran IV 19:51 20:23 Inj) 02/25/19 19:52 Ondansetron 4 mg BRIDGE ORDER 02/25/19 HCl (Zofran PRN IV 22:30 Inj) NAUSEA/VOMITI 02/26/19 22:29 NG 650 mg ER BRIDGE 02/25/19 Acetaminophen PRN PO 22:30 (Tylenol .MILD PAIN 02/26/19 22:29 Tab) 1-3 OR TEMP Procedures/MDM CT of the pelvis shows early small bowel obstruction per radiology. Patient is a 63-year-old female presents with acute small bowel obstruction. The patient will be admitted to the care of Dr. Sahu. I will consult general surgery for consultation. The patient was given morphine and Zofran for pain. She will be admitted to a medical surgical bed. Departure Diagnosis: Primary Impression: SBO (small bowel obstruction) Additional Impression: Abdominal pain Abdominal location: generalized Qualified Codes: R10.84 - Generalized abdominal pain Condition: GRACE Meadows MD Feb 25, 2019 22:40
[2019-02-26 02:04] VITALS: Ht 152.4 cm; Wt 62.4 kg
[2019-02-26 02:09] VITALS: BP 104/60; PULSE 59; RESP 18
[2019-02-26] MEDS ORDERED: NACL 0.9% 3 ML SYG IV SCH (03:30)
[2019-02-26] MEDS ORDERED: ONDANSETRON 4 MG INJ IV PRN (03:30)
[2019-02-26] MEDS ORDERED: morphine 2 MG INJ IV PRN (03:30)
[2019-02-26] MEDS: DEXTROSE 5%-0.45% NACL 1,000 ML IV SCH ×2 (03:34→15:11)
--- NOTE | 2019-02-26 06:16 | HP ---
Date/Time of Note Date/Time of Note DATE: 02/26/19 TIME: 06:13 Assessment/Plan VTE Prophylaxis Risk score (from Ns)>0 risk: 2 SCD applied (from Ns): Yes Pharmacological prophylaxis: NA/contraindicated Pharm contraindication: other (Awaiting surgical eval for SBO) Lines/Catheters IV [facility] [place] Assessment/Plan Assessment/Plan 63-year-old female with a history of ovarian cancer status post EDIN-BSO as well as chemo and radiation, history of laparoscopic converted to open incarcerated ventral hernia repair in 2016, recurrent SBO, and a history of EGD/colonoscopy in 2016 with findings of GERD, gastritis with erosion, severe adhesions from previous hysterectomy on the sigmoid colon and radiation proctitis/sigmoiditis. Patient presents once again with abdominal pain with a CT finding of partial SBO PLAN -Keep n.p.o. with IV fluid -NG tube to low intermittent suction, but the patient refused saying that she is feeling better. Will start clear diet advance as tolerated -Pain meds and antiemetics as needed -Awaiting surgical eval Result Diagram: 02/25/19204602/25/192046 Results 24hrs Laboratory Tests Test 02/25/19 20:47 02/25/19 22:07 02/26/19 04:31 White Blood Count 3.4 #L Pending Red Blood Count 4.95 Pending Hemoglobin 13.4 Pending Hematocrit 42.6 Pending Mean Corpuscular Volume 86.1 Pending Mean Corpuscular Hemoglobin 27.1 L Pending Mean Corpuscular 31.5 L Pending Hemoglobin Concent Red Cell Distribution Width 15.1 H Pending Platelet Count 306 Pending Mean Platelet Volume 10.6 H Pending Immature Granulocytes % 0.300 Neutrophils % Segmented Neutrophils 50 % (Manual) Band Neutrophils % (Manual) 21 H Lymphocytes % Lymphocytes % (Manual) 22 Monocytes % Monocytes % (Manual) 7 Eosinophils % Basophils % Nucleated Red Blood Cells % 0.0 Immature Granulocytes # 0.010 Neutrophils # Neutrophils # (Manual) 1.7 Band Neutrophils # 0.7 H Lymphocytes (Manual) 0.7 L Lymphocytes # Monocytes # Monocytes # (Manual) 0.2 L Eosinophils # Basophils # Nucleated Red Blood Cells # Poikilocytosis 2+ Prothrombin Time 13.3 Prothrombin Time Ratio 1.0 INR International 1.00 Normalized Ratio Activated Partial Thromboplast 28.4 Time Sodium Level 144 Potassium Level 4.0 Chloride Level 104 Carbon Dioxide Level 26 Anion Gap 14 H Blood Urea Nitrogen 21 H Creatinine 0.95 Est Glomerular Filtrat 60 Rate mL/min Glucose Level 116 Calcium Level 9.7 Total Bilirubin 0.5 Direct Bilirubin 0.00 Indirect Bilirubin 0.5 Aspartate Amino 35 Transf (AST/SGOT) Alanine 13 Aminotransferase (ALT/SGPT) Alkaline Phosphatase 75 Troponin I < 0.012 Total Protein 8.2 H Albumin 4.5 Globulin 3.70 H Albumin/Globulin Ratio 1.21 Lipase 74 Urine Color YELLOW Urine Clarity SLIGHTLY CLOUDY A Urine pH 5.0 Urine Specific [place] 1.027 Urine Ketones 2+ H Urine Nitrite NEGATIVE Urine Bilirubin NEGATIVE Urine Urobilinogen NEGATIVE Urine Leukocyte Esterase NEGATIVE Urine Microscopic RBC 4 Urine Microscopic WBC 6 H Urine Squamous FEW Epithelial Cells Urine Bacteria FEW A Urine Mucus MANY A Urine Hemoglobin NEGATIVE Urine Glucose NEGATIVE Urine Total Protein NEGATIVE HPI/ROS Admit Date/Time Admit Date/Time Feb 25, 2019 at 22:16 Hx of Present Illness This is a 63-year-old female with a history of ovarian cancer status post EDIN- BSO as well as chemo and radiation, history of laparoscopic converted to open incarcerated ventral hernia repair in 2016, recurrent SBO, and a history of EGD/colonoscopy in 2016 with findings of GERD, gastritis with erosion, severe adhesions from previous hysterectomy on the sigmoid colon and radiation proctitis/sigmoiditis. Patient presented to ER complaining of abdominal pain and and found to have partial SBO. She was admitted by myself almost 4 months ago after she presented with similar symptoms. At that time she was found to have a partial SBO which was conservatively managed with decompression with NG tube. Now she is returning with similar symptoms CT once again shows partial SBO. Last bowel movement was today. Currently her abdomen is soft and that she is feeling better. She refused NG tube placement PMH/Family/Social Past Medical History Medications Current Medications Ondansetron HCl (Zofran Inj) 4 mg BRIDGE ORDER PRN IV NAUSEA/VOMITING; Start 02/25/19 at 22:30; Stop 02/26/19 at 22:29 Acetaminophen (Tylenol Tab) 650 mg ER BRIDGE PRN PO .MILD PAIN 1-3 OR TEMP Last administered on 02/25/19at 23:38; Admin Dose 650 MG; Start 02/25/19 at 22:30; Stop 02/26/19 at 22:29 Dextrose/Sodium Chloride 1,000 ml @ 100 mls/hr Q10H IV Last administered on 02/26/19at 03:34; Admin Dose 100 MLS/HR; Start 02/26/19 at 03:05 IV Flush (NS 3 ml) 3 ml PER PROTOCOL IV ; Start 02/26/19 at 03:30 Ondansetron HCl (Zofran Inj) 4 mg Q6H PRN IV NAUSEA/VOMITING; Start 02/26/19 at 03:30 Morphine Sulfate (morphine) 2 mg Q4H PRN IV .SEVERE PAIN 7-10; Start 02/26/19 at 03:30 Famotidine (Pepcid Iv) 20 mg Q12 IV ; Start 02/26/19 at 09:00 Coded Allergies: diclofenac (Unverified Allergy, Severe, sob; itchiness, 02/25/19) Past Surgical History Past Surgical Hx: no surgical history, other Family History Significant Family History: no pertinent family hx Social History Smoking Status: Never smoker Exam/Review of Systems Vital Signs Vitals Vital Signs Date Temp Pulse Resp B/P (MAP) Pulse Ox O2 O2 Flow FiO2 Time Delivery Rate 02/26/19 97.6 59 18 104/60 99 Room Air 02:09 (75) Intake and Output 02/25/19 02/25/19 02/26/19 1515:00 23:00 07:00 IntakeIntake Total 200 ml BalanceBalance 200 ml Exam Constitutional: other (No acute distress) Head: normocephalic, atraumatic Eyes: PERRL Respiratory: clear to auscultation, normal air movement Gastrointestinal: soft Extremities: normal pulses DIONI DAMICO MD Feb 26, 2019 06:16
[2019-02-26] MEDS: FAMOTIDINE 20 MG INJ IV SCH ×2 (08:16→20:58)
[2019-02-26] MEDS: CEFTRIAXONE 1 GM/50 ML (PMX) 50 ML IVPB SCH (08:16)
[2019-02-26 09:09] VITALS: BP 94/57; PULSE 63; RESP 17
[2019-02-26] MEDS ORDERED: DIATR MEGLU/DIATRIZOATE SODIUM 120 ML BTL ONE (10:05)
--- NOTE | 2019-02-26 10:08 | CONS ---
DATE OF ADMISSION: 02/25/2019 DATE OF CONSULTATION: 02/26/2019 INDICATION: This is a 63-year-old female with a complicated past medical history. She had a history of ovarian cancer, status post EDIN BSO, as well as chemoradiation. She underwent a laparoscopic converted to open hernia repair in 2016 due to adhesions. As a result of her chemotherapy and radiation she most likely is having these recurrent two partial small bowel obstructions with resolution with nonoperative management. She had a recent admission in December with a small bowel followthrough, which did not show any clear identification of obstruction. She does have chronic constipation. General surgery was consulted for evaluation and management. PAST MEDICAL HISTORY: As above, otherwise also with GERD, gastritis. PAST SURGICAL HISTORY: As stated above. LABORATORY DATA: White blood cell count 3.4, hemoglobin is 10.4, platelets 255. Chemistries: Sodium is 144, potassium 3.9, chloride 107, carbon dioxide is 27, BUN is 21, creatinine 0.8, glucose is 103, calcium is 8.5, magnesium is 2.0. LFTs are normal. Albumin is 3.3, lipase is 74. She has a CT scan no contrast showing a recurrent partial or early small-bowel obstruction point to a likely transition point in the left abdomen with small bowel wall thickening, which may represent enteritis. She also has stool throughout her whole colon. PHYSICAL EXAMINATION: VITAL SIGNS: Temperature is 97.6, pulse is 59, respiratory rate is 18, blood pressure 104/60. ABDOMEN: Focal exam, she has had some diffuse tenderness; however, abdomen is soft. No peritoneal signs, no rebound tenderness. ASSESSMENT AND PLAN: This is a 63-year-old female with a complicated surgical history with a EDIN BSO status post chemoradiation with recurrent small bowel obstructions. Her last small-bowel obstruction in December did not show a clear transition point. She also probably has some evidence of enteritis from her chemo and radiation. We will perform another small-bowel small bowel followthrough today. However, if she can be treated nonoperatively, this is probably best for her, as she probably has chronic constipation and issues related to the chemoradiation that she had received. We will continue to follow and follow result of the small-bowel obstruction today. Dictated By: SAIRA BRANDON/MARYBETH Conf#: [id number] [facility]#: [id number] CC: SAIRA MONTERO MD; DIONI DAMICO MD;*EndCC* MTDD
[2019-02-26 13:11] VITALS: BP 101/59; PULSE 62; RESP 17
--- NOTE | 2019-02-26 15:25 | PN ---
Date/Time of Note Date/Time of Note DATE: 02/26/19 TIME: 15:22 Assessment/Plan VTE Prophylaxis Risk score (from [facility] [place])>0 risk: 2 SCD applied (from [facility] [place]): Yes Pharmacological prophylaxis: NA/contraindicated Pharm contraindication: surgical contra Lines/Catheters IV [facility]ter Type (from [facility]): Peripheral IV Assessment/Plan Hospital Course 1. SBO secondary to history of abdominal surgery Patient with history of SBO in the past Follow-up on small bowel follow-through Surgical consultation with Dr. Avalos appreciated Patient refusing NG tube N.p.o. with IV fluids 2. History of ovarian cancer status post EDIN/BSO as well as chemoradiation 3. History of open incarcerated ventral hernia status post repair in 2015 4. Bicytopenia with leukopenia and anemia likely secondary to chemotherapy Prophylaxis: SCDs Result Diagram: 02/26/19 0431 02/26/19 0431 Results 24hrs Laboratory Tests Test 02/25/19 20:47 02/25/19 22:07 02/26/19 04:31 White Blood Count 3.4 #L 3.4 L Red Blood Count 4.95 3.75 #L Hemoglobin 13.4 10.4 #L Hematocrit 42.6 32.5 #L Mean Corpuscular Volume 86.1 86.7 Mean Corpuscular Hemoglobin 27.1 L 27.7 L Mean Corpuscular 31.5 L 32.0 Hemoglobin Concent Red Cell Distribution Width 15.1 H 15.1 H Platelet Count 306 255 Mean Platelet Volume 10.6 H 10.5 H Immature Granulocytes % 0.300 0.300 Neutrophils % 38.9 L Segmented Neutrophils 50 % (Manual) Band Neutrophils % (Manual) 21 H Lymphocytes % 46.0 Lymphocytes % (Manual) 22 Monocytes % 13.6 H Monocytes % (Manual) 7 Eosinophils % 0.9 Basophils % 0.3 Nucleated Red Blood Cells % 0.0 0.0 Immature Granulocytes # 0.010 0.010 Neutrophils # 1.3 L Neutrophils # (Manual) 1.7 Band Neutrophils # 0.7 H Lymphocytes (Manual) 0.7 L Lymphocytes # 1.6 Monocytes # 0.5 Monocytes # (Manual) 0.2 L Eosinophils # 0.0 Basophils # 0.0 Nucleated Red Blood Cells # 0.0 Poikilocytosis 2+ Prothrombin Time 13.3 Prothrombin Time Ratio 1.0 INR International 1.00 Normalized Ratio Activated Partial Thromboplast 28.4 Time Sodium Level 144 144 Potassium Level 4.0 3.9 Chloride Level 104 107 Carbon Dioxide Level 26 27 Anion Gap 14 H 10 Blood Urea Nitrogen 21 H 21 H Creatinine 0.95 0.84 Est Glomerular Filtrat 60 > 60 Rate mL/min Glucose Level 116 103 Calcium Level 9.7 8.5 Total Bilirubin 0.5 0.4 Direct Bilirubin 0.00 0.00 Indirect Bilirubin 0.5 0.4 Aspartate Amino 35 24 Transf (AST/SGOT) Alanine 13 18 Aminotransferase (ALT/SGPT) Alkaline Phosphatase 75 51 Troponin I < 0.012 Total Protein 8.2 H 6.1 # Albumin 4.5 3.3 # Globulin 3.70 H 2.80 Albumin/Globulin Ratio 1.21 1.17 Lipase 74 Urine Color YELLOW Urine Clarity SLIGHTLY CLOUDY A Urine pH 5.0 Urine Specific [place] 1.027 Urine Ketones 2+ H Urine Nitrite NEGATIVE Urine Bilirubin NEGATIVE Urine Urobilinogen NEGATIVE Urine Leukocyte Esterase NEGATIVE Urine Microscopic RBC 4 Urine Microscopic WBC 6 H Urine Squamous FEW Epithelial Cells Urine Bacteria FEW A Urine Mucus MANY A Urine Hemoglobin NEGATIVE Urine Glucose NEGATIVE Urine Total Protein NEGATIVE Magnesium Level 2.0 Subjective 24 Hr Interval Summary Constitutional: no complaints Exam/Review of Systems Exam Vitals Vital Signs Date Temp Pulse Resp B/P (MAP) Pulse Ox O2 O2 Flow FiO2 Time Delivery Rate 02/26/19 97.6 62 17 101/59 98 13:11 (73) 02/26/19 Room Air 09:09 Intake and Output 02/25/19 02/25/19 02/26/19 1414:59 22:59 06:59 IntakeIntake Total 200 ml BalanceBalance 200 ml Constitutional: alert, oriented Respiratory: clear to auscultation Cardiovascular: regular rate and rhythm Gastrointestinal: soft; No distended Musculoskeletal: nl extremities to inspection Results Results 24hrs Laboratory Tests Test 02/25/19 20:47 02/25/19 22:07 02/26/19 04:31 White Blood Count 3.4 #L 3.4 L Red Blood Count 4.95 3.75 #L Hemoglobin 13.4 10.4 #L Hematocrit 42.6 32.5 #L Mean Corpuscular Volume 86.1 86.7 Mean Corpuscular Hemoglobin 27.1 L 27.7 L Mean Corpuscular 31.5 L 32.0 Hemoglobin Concent Red Cell Distribution Width 15.1 H 15.1 H Platelet Count 306 255 Mean Platelet Volume 10.6 H 10.5 H Immature Granulocytes % 0.300 0.300 Neutrophils % 38.9 L Segmented Neutrophils 50 % (Manual) Band Neutrophils % (Manual) 21 H Lymphocytes % 46.0 Lymphocytes % (Manual) 22 Monocytes % 13.6 H Monocytes % (Manual) 7 Eosinophils % 0.9 Basophils % 0.3 Nucleated Red Blood Cells % 0.0 0.0 Immature Granulocytes # 0.010 0.010 Neutrophils # 1.3 L Neutrophils # (Manual) 1.7 Band Neutrophils # 0.7 H Lymphocytes (Manual) 0.7 L Lymphocytes # 1.6 Monocytes # 0.5 Monocytes # (Manual) 0.2 L Eosinophils # 0.0 Basophils # 0.0 Nucleated Red Blood Cells # 0.0 Poikilocytosis 2+ Prothrombin Time 13.3 Prothrombin Time Ratio 1.0 INR International 1.00 Normalized Ratio Activated Partial Thromboplast 28.4 Time Sodium Level 144 144 Potassium Level 4.0 3.9 Chloride Level 104 107 Carbon Dioxide Level 26 27 Anion Gap 14 H 10 Blood Urea Nitrogen 21 H 21 H Creatinine 0.95 0.84 Est Glomerular Filtrat 60 > 60 Rate mL/min Glucose Level 116 103 Calcium Level 9.7 8.5 Total Bilirubin 0.5 0.4 Direct Bilirubin 0.00 0.00 Indirect Bilirubin 0.5 0.4 Aspartate Amino 35 24 Transf (AST/SGOT) Alanine 13 18 Aminotransferase (ALT/SGPT) Alkaline Phosphatase 75 51 Troponin I < 0.012 Total Protein 8.2 H 6.1 # Albumin 4.5 3.3 # Globulin 3.70 H 2.80 Albumin/Globulin Ratio 1.21 1.17 Lipase 74 Urine Color YELLOW Urine Clarity SLIGHTLY CLOUDY A Urine pH 5.0 Urine Specific [place] 1.027 Urine Ketones 2+ H Urine Nitrite NEGATIVE Urine Bilirubin NEGATIVE Urine Urobilinogen NEGATIVE Urine Leukocyte Esterase NEGATIVE Urine Microscopic RBC 4 Urine Microscopic WBC 6 H Urine Squamous FEW Epithelial Cells Urine Bacteria FEW A Urine Mucus MANY A Urine Hemoglobin NEGATIVE Urine Glucose NEGATIVE Urine Total Protein NEGATIVE Magnesium Level 2.0 Medications Medication Current Medications Ondansetron HCl (Zofran Inj) 4 mg BRIDGE ORDER PRN IV NAUSEA/VOMITING; Start 02/25/19 at 22:30; Stop 02/26/19 at 22:29 Acetaminophen (Tylenol Tab) 650 mg ER BRIDGE PRN PO .MILD PAIN 1-3 OR TEMP Last administered on 02/25/19at 23:38; Admin Dose 650 MG; Start 02/25/19 at 22:30; Stop 02/26/19 at 22:29 Dextrose/Sodium Chloride 1,000 ml @ 100 mls/hr Q10H IV Last administered on 02/26/19at 15:11; Admin Dose 100 MLS/HR; Start 02/26/19 at 03:05 IV Flush (NS 3 ml) 3 ml PER PROTOCOL IV ; Start 02/26/19 at 03:30 Ondansetron HCl (Zofran Inj) 4 mg Q6H PRN IV NAUSEA/VOMITING; Start 02/26/19 at 03:30 Morphine Sulfate (morphine) 2 mg Q4H PRN IV .SEVERE PAIN 7-10; Start 02/26/19 at 03:30 Famotidine (Pepcid Iv) 20 mg Q12 IV Last administered on 02/26/19at 08:16; Admin Dose 20 MG; Start 02/26/19 at 09:00 Ceftriaxone Sodium 50 ml @ 100 mls/hr DAILY IVPB Last administered on 02/26/19at 08:16; Admin Dose 100 MLS/HR; Start 02/26/19 at 09:00 FINA KLINE Feb 26, 2019 15:25
[2019-02-26] MEDS: D5W-0.45 NACL + KCL 20 MEQ 1,000 ML IV SCH (16:44)
[2019-02-26 20:00] VITALS: BP_SYST 104; BP_SYST 127; BP_DIAS 64; BP_DIAS 82; PULSE 63; RESP 18
[2019-02-26] MEDS ORDERED: ZOLPIDEM 5 MG TAB PO ONE (21:00)
[2019-02-27 02:00] VITALS: BP 95/51; PULSE 76; RESP 18
[2019-02-27] MEDS: D5W-0.45 NACL + KCL 20 MEQ 1,000 ML IV SCH (02:07)
[2019-02-27] MEDS: ACETAMINOPHEN 325 MG TAB PO PRN ×2 (02:32→13:05)
[2019-02-27 08:00] VITALS: BP 101/69; PULSE 68; RESP 17
[2019-02-27] MEDS: FAMOTIDINE 20 MG INJ IV SCH ×2 (08:29→20:41)
[2019-02-27] MEDS: CEFTRIAXONE 1 GM/50 ML (PMX) 50 ML IVPB SCH (08:30)
--- NOTE | 2019-02-27 11:25 | PN ---
Date/Time of Note Date/Time of Note DATE: 02/27/19 TIME: 11:24 Assessment/Plan VTE Prophylaxis Risk score (from [facility])>0 risk: 1 SCD applied (from [facility]): Yes Pharmacological prophylaxis: other Lines/Catheters IV Catheter Type (from [facility]): Peripheral IV Urinary Cath still in place: No Assessment/Plan Assessment/Plan constipation with resolution and BM's high fiber and plenty of water diet and laxatives as necessary dc home when ok with primary team surgery will sign off Result Diagram: 02/27/1952302/27/19523 Results 24hrs Laboratory Tests Test 02/27/19 05:24 White Blood Count 3.6 L Red Blood Count 3.80 L Hemoglobin 10.4 L Hematocrit 32.8 L Mean Corpuscular Volume 86.3 Mean Corpuscular Hemoglobin 27.4 L Mean Corpuscular Hemoglobin Concent 31.7 L Red Cell Distribution Width 14.8 H Platelet Count 228 Mean Platelet Volume 10.0 Immature Granulocytes % 0.300 Neutrophils % 62.5 Lymphocytes % 25.8 Monocytes % 8.9 Eosinophils % 2.2 Basophils % 0.3 Nucleated Red Blood Cells % 0.0 Immature Granulocytes # 0.010 Neutrophils # 2.3 Lymphocytes # 0.9 Monocytes # 0.3 Eosinophils # 0.1 Basophils # 0.0 Nucleated Red Blood Cells # 0.0 Sodium Level 142 Potassium Level 3.6 Chloride Level 110 Carbon Dioxide Level 26 Anion Gap 6 Blood Urea Nitrogen 14 Creatinine 0.88 Est Glomerular Filtrat Rate mL/min > 60 Glucose Level 99 Calcium Level 8.6 Phosphorus Level 2.6 Magnesium Level 1.8 Subjective 24 Hr Interval Summary Free Text/Dictation 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 but no obstruction and patient is having bowel movements Exam/Review of Systems Exam Vitals Vital Signs Date Temp Pulse Resp B/P (MAP) Pulse Ox O2 O2 Flow FiO2 Time Delivery Rate 02/27/19 98.4 68 17 101/69 95 Room Air 08:00 (80) Intake and Output 02/26/19 02/26/19 02/27/19 1515:00 23:00 07:00 IntakeIntake Total 450 ml 1297 ml 1200 ml BalanceBalance 450 ml 1297 ml 1200 ml Exam nontender Results Results 24hrs Laboratory Tests Test 02/27/19 05:24 White Blood Count 3.6 L Red Blood Count 3.80 L Hemoglobin 10.4 L Hematocrit 32.8 L Mean Corpuscular Volume 86.3 Mean Corpuscular Hemoglobin 27.4 L Mean Corpuscular Hemoglobin Concent 31.7 L Red Cell Distribution Width 14.8 H Platelet Count 228 Mean Platelet Volume 10.0 Immature Granulocytes % 0.300 Neutrophils % 62.5 Lymphocytes % 25.8 Monocytes % 8.9 Eosinophils % 2.2 Basophils % 0.3 Nucleated Red Blood Cells % 0.0 Immature Granulocytes # 0.010 Neutrophils # 2.3 Lymphocytes # 0.9 Monocytes # 0.3 Eosinophils # 0.1 Basophils # 0.0 Nucleated Red Blood Cells # 0.0 Sodium Level 142 Potassium Level 3.6 Chloride Level 110 Carbon Dioxide Level 26 Anion Gap 6 Blood Urea Nitrogen 14 Creatinine 0.88 Est Glomerular Filtrat Rate mL/min > 60 Glucose Level 99 Calcium Level 8.6 Phosphorus Level 2.6 Magnesium Level 1.8 Medications Medication Current Medications IV Flush (NS 3 ml) 3 ml PER PROTOCOL IV ; Start 02/26/19 at 03:30 Ondansetron HCl (Zofran Inj) 4 mg Q6H PRN IV NAUSEA/VOMITING; Start 02/26/19 at 03:30 Morphine Sulfate (morphine) 2 mg Q4H PRN IV .SEVERE PAIN 7-10; Start 02/26/19 at 03:30 Famotidine (Pepcid Iv) 20 mg Q12 IV Last administered on 02/27/19at 08:29; Admin Dose 20 MG; Start 02/26/19 at 09:00 Ceftriaxone Sodium 50 ml @ 100 mls/hr DAILY IVPB Last administered on 02/27/19at 08:30; Admin Dose 100 MLS/HR; Start 02/26/19 at 09:00 Potassium Chloride/Dextrose/ Sod Cl 1,000 ml @ 100 mls/hr Q10H IV Last ad ministered on 02/27/19 02:07; Admin Dose 100 MLS/HR; Start 02/26/19 at 15:30 Acetaminophen (Tylenol Tab) 650 mg Q6H PRN PO MILD PAIN(1-3)OR ELEVATED TEMP Last administered on 02/27/19 02:32; Admin Dose 650 MG; Start 02/27/19 at 02:30 Law MONTERO Feb 27, 2019 11:25
--- NOTE | 2019-02-27 11:31 | PDOCDIS ---
Discharge Instructions CONDITION [id number] Patient Condition: [id number] Good HOME CARE INSTRUCTIONS: [id number] Diet Instructions: [id number] Regular ACTIVITY: [id number] Activity Restrictions: [id number] Restrictions FOLLOW UP/APPOINTMENTS Follow-up Plan Follow-up with your PCP and oncologist as scheduled FINA KLINE Feb 27, 2019 11:31
--- NOTE | 2019-02-27 12:00 | DS ---
Date/Time of Note Date/Time of Note DATE: 02/27/19 TIME: 11:56 Discharge Summary Admission/Discharge Info Admit Date/Time Feb 25, 2019 at 22:16 Discharge Date/Time February 27, 2019 Discharge Diagnosis 1. SBO secondary to history of abdominal surgery-resolved Patient with history of SBO in the past Small bowel follow-through is negative for obstruction Patient is now having bowel movements and is tolerating p.o. diet Surgical consultation with Dr. Avalos appreciated, clear for DC per surgery Patient refused NG tube 2. History of ovarian cancer status post EDIN/BSO as well as chemoradiation 3. History of open incarcerated ventral hernia status post repair in 2016 4. Bicytopenia with leukopenia and anemia likely secondary to chemotherapy Patient Condition: Good Hospital Course Patient is a 63-year-old female with a history of ovarian cancer status post EDIN/BSO as well as chemoradiation, history of open incarcerated ventral hernia status post repair in 2016 as well as history of SBO. Patient presents with abdominal pain and was found to have an SBO on CT abdomen. Patient was not interested in NG tube, small bowel follow-through was done and was negative for mechanical obstruction, the patient did begin to have bowel movements and was tolerating p.o. diet with improvement of abdominal pain. Patient was seen by her surgeon Dr. Avalos and was clear for DC. On day of discharge patient's vitals, labs and physical exam are stable. Home Meds Reported Medications Ranitidine Hcl* (Ranitidine Hcl*) 150 Mg Tablet, 150 MG PO HS, #30 TAB 02/25/19 Omeprazole* (Omeprazole*) 20 Mg Capsule., 20 MG PO BID, #60 CAP 02/25/19 Gabapentin* (Gabapentin*) 300 Mg Capsule, 300 MG PO BID, #60 CAP 02/25/19 Discontinued Reported Medications Omeprazole* (Omeprazole*) 20 Mg Capsule., 20 MG PO DAILY, #30 CAP 07/13/17 Gabapentin* (Gabapentin*) 300 Mg Capsule, 300 MG PO BID, #60 CAP 04/25/16 Follow-up Plan Follow-up with your PCP and oncologist as scheduled Primary Care Provider Not On Staff Doctor Time spent on discharge: > 30 minutes FINA KLINE Feb 27, 2019 12:00
[2019-02-27 14:00] VITALS: BP 97/65; PULSE 62; RESP 18
[2019-02-27 20:15] VITALS: BP 101/58; PULSE 67; RESP 18
[2019-02-27] MEDS ORDERED: ZOLPIDEM 5 MG TAB PO PRN (23:00)
[2019-02-28 02:11] VITALS: BP 108/63; PULSE 77; RESP 18
[2019-02-28] MEDS: ACETAMINOPHEN 325 MG TAB PO PRN (03:14)
[2019-02-28 08:00] VITALS: BP 108/64; PULSE 61; RESP 18
[2019-02-28] MEDS: CEFTRIAXONE 1 GM/50 ML (PMX) 50 ML IVPB SCH (08:08)
[2019-02-28] MEDS: FAMOTIDINE 20 MG INJ IV SCH (08:08)
--- NOTE | 2019-02-28 11:39 | DS ---
Date/Time of Note Date/Time of Note DATE: 02/28/19 TIME: 11:34 Discharge Summary Admission/Discharge Info Admit Date/Time Feb 25, 2019 at 22:16 Discharge Date/Time Feb 28, 2019 at 10:55 Discharge Diagnosis 1. SBO secondary to history of abdominal surgery-resolved Patient with history of SBO in the past Small bowel follow-through is negative for obstruction Patient is now having bowel movements and is tolerating p.o. diet Surgical consultation with Dr. Avalos appreciated, clear for DC per surgery Patient refused NG tube 2. History of ovarian cancer status post EDIN/BSO as well as chemoradiation 3. History of open incarcerated ventral hernia status post repair in 2015 4. Bicytopenia with leukopenia and anemia likely secondary to chemotherapy 5. Fever of unknown origin-resolved Etiology was UTI versus colitis versus viral syndrome Status post IV antibiotics Patient is not neutropenic No indication for further antibiotics CT abdomen showed no clear intra-abdominal malignancy Patient Condition: Good Hospital Course Patient is a 63-year-old female with a history of ovarian cancer status post EDIN/BSO as well as chemoradiation, history of open incarcerated ventral hernia status post repair in 2015 as well as history of SBO. Patient presents with abdominal pain and was found to have an SBO on CT abdomen. Patient was not interested in NG tube, small bowel follow-through was done and was negative for mechanical obstruction, the patient did begin to have bowel movements and was t olerating p.o. diet with improvement of abdominal pain. Patient was seen by her surgeon Dr. Avalos and was clear for DC. Patient was having persistent fevers of unknown origin, etiology may have been colitis versus UTI versus viral syndrome, patient did receive IV antibiotics, urine culture grew mixed gram-positive organisms. Patient's fevers did resolve and patient was stable for DC, on day of discharge patient's vitals, labs and physical exam are stable. Home Meds Reported Medications Ranitidine Hcl* (Ranitidine Hcl*) 150 Mg Tablet, 150 MG PO HS, #30 TAB 02/25/19 Omeprazole* (Omeprazole*) 20 Mg Capsule., 20 MG PO BID, #60 CAP 02/25/19 Gabapentin* (Gabapentin*) 300 Mg Capsule, 300 MG PO BID, #60 CAP 02/25/19 Discontinued Reported Medications Omeprazole* (Omeprazole*) 20 Mg Capsule., 20 MG PO DAILY, #30 CAP 07/13/17 Gabapentin* (Gabapentin*) 300 Mg Capsule, 300 MG PO BID, #60 CAP 04/25/16 Follow-up Plan Follow-up with your PCP and oncologist as scheduled Primary Care Provider Not On Staff Doctor Time spent on discharge: > 30 minutes FINA KLINE Feb 28, 2019 11:39
== END 2019-02-28 10:55 | disposition home or self-care (01) | DRG 389 ==
LOC: E/R 16:15 → MS3 22:16 → UNDOADMIN 22:16 → 5EC 02-26 12:20
PROVIDERS: ADMIT Internal Medicine; ATTEND Internal Medicine
DX: K56.609 Unspecified intestinal obstruction, unspecified as to partial versus complete obstruction (principal); N39.0 Urinary tract infection, site not specified; K59.09 Other constipation; B34.9 Viral infection, unspecified; K52.9 Noninfective gastroenteritis and colitis, unspecified; D70.1 Agranulocytosis secondary to cancer chemotherapy; D64.81 Anemia due to antineoplastic chemotherapy; Z90.710 Acquired absence of both cervix and uterus; Z85.43 Personal history of malignant neoplasm of ovary; Z92.21 Personal history of antineoplastic chemotherapy; Z92.3 Personal history of irradiation; T45.1X5A Adverse effect of antineoplastic and immunosuppressive drugs, initial encounter
CPT/HCPCS: 36415; 71045; 74176; 74250; 76705; 80048; 80053; 81001; 81003; 83690; 83735; 84100; 84484; 85025; 85610; 85730; 87045; 87075; 87086; 93005; 96374; 96375; J0696; J2270; J2405; J3480; J7030; J7042

== ENCOUNTER 2019-06-09 15:02 | Inpatient (IN) | payer MEDICAID ==
[~2019-06-09] VITALS: Ht 154.9 cm; Wt 70.0 kg
[~2019-06-09 15:02] MED LIST changes: +RANI150T5 PO
[2019-06-09 15:05] VITALS: Ht 154.9 cm; Wt 70.0 kg
[2019-06-09] MEDS ORDERED: BELLADONNA/PHENOBARBITAL TAB PO STA (15:26)
[2019-06-09] MEDS ORDERED: LIDOCAINE/MYLANTA 40 ML BTL PO STA (15:26)
[2019-06-09] MEDS ORDERED: SOD CHLORIDE 0.9% 1,000 ML IV STA (15:26)
[2019-06-09] MEDS ORDERED: FAMOTIDINE 20 MG INJ IV STA (15:26)
[2019-06-09] MEDS ORDERED: ONDANSETRON 4 MG INJ IV STA ×2 (15:26→17:56)
[2019-06-09] MEDS ORDERED: morphine 4 MG/ML VIAL IV STA ×2 (16:06→17:56)
[2019-06-09] MEDS ORDERED: LORA10TA3 PO (16:31)
[2019-06-09] MEDS ORDERED: CITA10TA5 PO (16:31)
[2019-06-09] MEDS ORDERED: ONDANSETRON 4 MG INJ IV PRN ×2 (20:00→20:30)
[2019-06-09] MEDS ORDERED: ACETAMINOPHEN 325 MG TAB PO PRN ×2 (20:00→20:30)
--- NOTE | 2019-06-09 20:07 | HP ---
Date/Time of Note Date/Time of Note DATE: 06/09/19 TIME: 20:04 Assessment/Plan VTE Prophylaxis SCD applied (from Nsg): Yes Pharmacological prophylaxis: NA/contraindicated Pharm contraindication: low risk/ambulating Lines/Catheters IV Catheter Type (from Nrsg): Saline Lock Assessment/Plan Hospital Course #1 small bowel obstruction: CT of abdomen pelvis with contrast shows complete small bowel obstruction. Patient refused NG tube placement. We will keep patient n.p.o. except meds. IV fluid hydration with normal saline. Small bowel follow-through in the a.m. Dr. Ramirez of general surgery has been consulted. Pain management. #2 anxiety: We will resume sertraline #3 PATRICIA: etiology possibly prerenal vs. intrinsic. Ct shows atrophy of left kidney. Will hydrate the patient. renal US. urine studies. consult nephrology dr. soriano. #3 History of endometrial cancer: Patient had a total abdominal hysterectomy in the past. This as well as a previous history of umbilical hernia as well as radiation treatments are likely contributing to #1 secondary to likely adhesions. #4 iron deficiency anemia: Patient's hemoglobin and MCV at this time are within acceptable values. Will continue to follow this. #5 GERD: Protonix, H2 deandre #6 DVT and GI prophylaxis: SCDs, Protonix, H2 deandre Further treatment strategy will be implemented as per the clinical course Result Diagram: 06/09/19 1539 06/09/19 1539 Results 24hrs Laboratory Tests Test 06/09/19 15:39 06/09/19 18:08 White Blood Count 9.6 # Red Blood Count 4.73 Hemoglobin 12.9 Hematocrit 39.6 Mean Corpuscular Volume 83.7 Mean Corpuscular Hemoglobin 27.3 L Mean Corpuscular Hemoglobin Concent 32.6 Red Cell Distribution Width 14.2 Platelet Count 332 # Mean Platelet Volume 9.7 Immature Granulocytes % 0.300 Neutrophils % 86.6 H Lymphocytes % 10.5 L Monocytes % 2.4 Eosinophils % 0.0 Basophils % 0.2 Nucleated Red Blood Cells % 0.0 Immature Granulocytes # 0.030 Neutrophils # 8.3 H Lymphocytes # 1.0 Monocytes # 0.2 L Eosinophils # 0.0 Basophils # 0.0 Nucleated Red Blood Cells # 0.0 Sodium Level 142 Potassium Level 4.1 Chloride Level 105 Carbon Dioxide Level 26 Anion Gap 11 Blood Urea Nitrogen 17 Creatinine 1.12 H Est Glomerular Filtrat Rate mL/min 49 L Glucose Level 168 Calcium Level 10.4 H Total Bilirubin 0.5 Direct Bilirubin 0.00 Indirect Bilirubin 0.5 Aspartate Amino Transf (AST/SGOT) 38 Alanine Aminotransferase (ALT/SGPT) 23 Alkaline Phosphatase 98 Total Protein 8.8 H Albumin 4.8 Globulin 4.00 H Albumin/Globulin Ratio 1.20 Lipase 118 Urine Color YELLOW Urine Clarity CLEAR Urine pH 7.0 Urine Specific [place] 1.020 Urine Ketones 1+ H Urine Nitrite NEGATIVE Urine Bilirubin NEGATIVE Urine Urobilinogen NEGATIVE Urine Leukocyte Esterase NEGATIVE Urine Microscopic RBC 4 Urine Microscopic WBC 4 Urine Mucus FEW A Urine Hemoglobin NEGATIVE Urine Glucose NEGATIVE Urine Total Protein 2+ H HPI/ROS Admit Date/Time Admit Date/Time Hx of Present Illness Chief complaint: 2 days of abdominal cramping, pain, nausea, vomiting 63-year-old female with a past medical history of small bowel obstructions, endometrial cancer status post hysterectomy and chemotherapy, anxiety who presented to the emergency department with complaints of 2 days of worsening generalized abdominal cramping abdominal pain along with nausea vomiting. She did report that she had a bowel movement earlier in the day. She denies any hematemesis or bright red blood per rectum. She denies any urinary symptoms. Denies any fevers. Patient had a CT of the abdomen pelvis performed in the emergency department which did show complete small bowel obstruction. She though refused NG tube placement. Allergies: Diclofenac Medications: See Jan Const: As per HPI Eyes : No pain discharge or redness or change in visual acuity ENT: No pain, sore throat, congestion, congestion, dysphagia or discharge Respiratory: No shortness of breath, cough, sputum, wheezing, or pleuritic pain Cardiovascular: No chest pain, palpitation, PND, or edema GI : As per HPI Genitourinary: No dysuria, hematuria, flank pain , discharge or CVA tenderness Musculoskeletal: No joint pain, back pain, neck pain, restricted range of motion in neck or joints Skin: No rash, bruising or hives Neuro: No headache, dizziness, syncope, seizure, focal weakness Endocrine: No polyuria, polydipsia, temperature intolerance Psych: No hallucination, depression, anxiety or suicidal ideation PMH/Family/Social Past Medical History Anxiety; History of small bowel obstruction; Iron Deficiency Anemia, History of Endometrial Carcinoma; History of Left Thigh and Buttocks Cancer requiring ChemoTx and XRT, GERD Medications Current Medications Ondansetron HCl (Zofran Inj) 4 mg BRIDGE ORDER PRN IV NAUSEA/VOMITING; Start 06/09/19 at 20:00; Stop 06/10/19 at 19:59 Acetaminophen (Tylenol Tab) 650 mg ER BRIDGE PRN PO .MILD PAIN 1-3 OR TEMP; Start 06/09/19 at 20:00; Stop 06/10/19 at 19:59 Coded Allergies: diclofenac (Unverified Allergy, Severe, sob; itchiness, 06/09/19) Past Surgical History EDIN/BSO; Umbilical herniorrhaphy Past Surgical Hx: other Family History Significant Family History: no pertinent family hx Social History Alcohol Use: none Smoking Status: Never smoker Drug Use: none Exam/Review of Systems Vital Signs Vitals Vital Signs Date Temp Pulse Resp B/P (MAP) Pulse Ox O2 O2 Flow FiO2 Time Delivery Rate 06/09/19 98.0 71 18 126/79 99 Room Air 17:41 (95) Exam Additional Comments PROCEDURE: CT Abdomen and Pelvis Without Intravenous Contrast CLINICAL INDICATION: Abdominal pain. Known CA. Previous partial small bowel obstruction. TECHNIQUE: Axial computed tomography images of the abdomen and pelvis without intravenous contrast. Sagittal and coronal reformatted images were created and reviewed. CTDIvol (mGy) = 6.66; total DLP (mGy-cm) = 347.75. This CT exam was performed using one or more of the following dose reduction techniques: automated exposure control, adjustment of the mA and/or kV according to patient size, and/or use of iterative reconstruction technique. DICOM images are available. COMPARISON: 02/25/2019 FINDINGS: LUNG BASES: Unremarkable. No mass. No consolidation. ABDOMEN: LIVER: Unremarkable. GALLBLADDER AND BILE DUCTS: Unremarkable. No calcified stones. No ductal dilation. PANCREAS: Unremarkable. No ductal dilation. SPLEEN: Unremarkable. No splenomegaly. ADRENALS: Unremarkable. No mass. KIDNEYS AND URETERS: Atrophy of the left kidney. Right kidney is morphologically normal. No nephrolithiasis or hydronephrosis. STOMACH AND BOWEL: Dilated loops of small bowel in the upper abdomen, consistent with small bowel obstruction. No mucosal thickening. PELVIS: APPENDIX: The appendix is normal in appearance. No evidence of appendicitis. BLADDER: Unremarkable. No stones. REPRODUCTIVE: The uterus is not identified, consistent with previous hysterectomy. The uterus is not identified, consistent with previous hysterectomy. ABDOMEN and PELVIS: INTRAPERITONEAL SPACE: Unremarkable. No free air. No significant fluid collection. BONES/JOINTS: Degenerative spine changes are noted. No acute fracture. No dislocation. SOFT TISSUES: Unremarkable. VASCULATURE: Unremarkable. LYMPH NODES: Unremarkable. No enlarged lymph nodes. IMPRESSION: 1. Dilated loops of small bowel in the upper abdomen, consistent with complete small bowel obstruction. No perforation or ischemic change demonstrated. The degree of small bowel distension is worse when compared to 02/25/2019. 2. Atrophy of the left kidney. Right kidney is morphologically normal. No nephrolithiasis or hydronephrosis. RPTAT: [facility] Lety Blanchard Physician Ring Rolling Machine Operator Date Time Electronically viewed and signed by Lety Blanchard Physician Ring Rolling Machine Operator on 06/09/2019 18:37 RmC/ CC: DARRELL BOOKER MD [id number] CHRIS BARTLETT Jun 09, 2019 20:07
[2019-06-09] MEDS ORDERED: LIDOCAINE 2% VISC 15 ML CUP PO ONE (20:30)
[2019-06-09] MEDS ORDERED: morphine 2 MG INJ IV PRN (20:30)
[2019-06-09] MEDS ORDERED: NACL 0.9% 3 ML SYG IV SCH (20:30)
[2019-06-09] MEDS ORDERED: RANITIDINE 150 MG TAB PO SCH (21:00)
--- NOTE | 2019-06-09 21:25 | ERD ---
ER Documentation Chief Complaint Chief Complaint AP SINCE THIS AM HPI This is a 63-year-old female with a past medical history of gynecologic cancer status post hysterectomy and chemotherapy, recurrent small bowel obstructions who is presenting with 1 to 2 days of progressive worsening generalized cramping aching gnawing abdominal pain with nausea and multiple episodes of nonbilious nonbloody vomiting. The patient does not endorse any changes to bowel movements or urination. She does not believe that she has been constipated. She denies diarrhea. She does not endorse any black or bloody or tarry stools. She does not endorse dysuria or hematuria or urgency or frequency. The patient does not endorse any alleviating or exacerbating factors. The patient reports that she has had pain like this in the past. Unfortunately, it is chronic in nature, but exacerbated today. The patient denies feeling sick recently. The patient denies fever or chills. The patient has had no headache or vision changes. The patient does not endorse neck or back pain. The patient denies lightheadedness or dizziness. The patient has had no chest pain or trouble breathing. The patient has had no focal deficits. The patient has had no weakness or numbness or tingling to the face or extremities. ROS All systems reviewed and are negative except as per history of present illness. Medications Home Meds Reported Medications Citalopram Hydrobromide* (Citalopram Hydrobromide*) 10 Mg Tablet, 10 MG PO DAILY, #30 TAB 06/09/19 Loratadine* (Loratadine*) 10 Mg Tablet, 10 MG PO DAILY, #30 TAB 06/09/19 Ranitidine Hcl* (Ranitidine Hcl*) 150 Mg Tablet, 150 MG PO HS, #30 TAB 02/25/19 Omeprazole* (Omeprazole*) 20 Mg Capsule.dr, 20 MG PO BID, #60 CAP 02/25/19 Gabapentin* (Gabapentin*) 300 Mg Capsule, 300 MG PO BID, #60 CAP 02/25/19 Allergies Allergies: Coded Allergies: diclofenac (Unverified Allergy, Severe, sob; itchiness, 06/09/19) PMhx/Soc History of Surgery: Yes (Hysterectomy, hernia repai) Anesthesia Reaction: No Hx Neurological Disorder: No Hx Respiratory Disorders: No Hx Cardiac Disorders: No Hx Psychiatric Problems: No Hx Miscellaneous Medical Probl: Yes (Endometrial CA, recurrent small bowel obstruction) Hx Alcohol Use: No Hx Substance Use: No Hx Tobacco Use: No Smoking Status: Never smoker FmHx Family History: No diabetes Physical Exam Vitals Vital Signs Date Temp Pulse Resp B/P (MAP) Pulse Ox O2 O2 Flow FiO2 Time Delivery Rate 06/09/19 60 16 106/66 99 Room Air 21:02 (79) 06/09/19 98.6 21:02 06/09/19 70 19 106/66 97 Room Air 20:23 (79) 06/09/19 67 18 111/69 100 Room Air 19:06 (83) 06/09/19 98.0 71 18 126/79 99 Room Air 17:41 (95) 06/09/19 98.1 68 18 117/71 99 15:05 (86) Physical Exam Const: No acute distress Head: Atraumatic Eyes: Normal Conjunctiva ENT: Normal External Ears, Nose and Mouth. Neck: Full range of motion. No meningismus. Resp: Clear to auscultation bilaterally Cardio: Regular rate and rhythm, no murmurs Abd: General abdominal discomfort without exquisite tenderness. No guarding or rebound. Soft, non distended. Normal bowel sounds Skin: No petechiae or rashes Back: No midline or flank tenderness Ext: No cyanosis, or edema Neur: Awake and alert Psych: Normal Mood and Affect Result Diagram: 06/09/19 1539 06/09/19 1539 Results 24 hrs Laboratory Tests Test 06/09/19 15:39 06/09/19 18:08 White Blood Count 9.6 10^3/ul Red Blood Count 4.73 10^6/ul Hemoglobin 12.9 g/dl Hematocrit 39.6 % Mean Corpuscular Volume 83.7 fl Mean Corpuscular Hemoglobin 27.3 pg Mean Corpuscular Hemoglobin Concent 32.6 g/dl Red Cell Distribution Width 14.2 % Platelet Count 332 10^3/UL Mean Platelet Volume 9.7 fl Immature Granulocytes % 0.300 % Neutrophils % 86.6 % Lymphocytes % 10.5 % Monocytes % 2.4 % Eosinophils % 0.0 % Basophils % 0.2 % Nucleated Red Blood Cells % 0.0 /100WBC Immature Granulocytes # 0.030 10^3/ul Neutrophils # 8.3 10^3/ul Lymphocytes # 1.0 10^3/ul Monocytes # 0.2 10^3/ul Eosinophils # 0.0 10^3/ul Basophils # 0.0 10^3/ul Nucleated Red Blood Cells # 0.0 10^3/ul Sodium Level 142 mmol/L Potassium Level 4.1 mmol/L Chloride Level 105 mmol/L Carbon Dioxide Level 26 mmol/L Anion Gap 11 Blood Urea Nitrogen 17 mg/dl Creatinine 1.12 mg/dl Est Glomerular Filtrat Rate mL/min 49 mL/min Glucose Level 168 mg/dl Calcium Level 10.4 mg/dl Total Bilirubin 0.5 mg/dl Direct Bilirubin 0.00 mg/dl Indirect Bilirubin 0.5 mg/dl Aspartate Amino Transf (AST/SGOT) 38 IU/L Alanine Aminotransferase (ALT/SGPT) 23 IU/L Alkaline Phosphatase 98 IU/L Total Protein 8.8 g/dl Albumin 4.8 g/dl Globulin 4.00 g/dl Albumin/Globulin Ratio 1.20 Lipase 118 U/L Urine Color YELLOW Urine Clarity CLEAR Urine pH 7.0 Urine Specific [place] 1.020 Urine Ketones 1+ mg/dL Urine Nitrite NEGATIVE mg/dL Urine Bilirubin NEGATIVE mg/dL Urine Urobilinogen NEGATIVE mg/dL Urine Leukocyte Esterase NEGATIVE [place]/ul Urine Microscopic RBC 4 /HPF Urine Microscopic WBC 4 /HPF Urine Mucus FEW /HPF Urine Hemoglobin NEGATIVE mg/dL Urine Glucose NEGATIVE mg/dL Urine Total Protein 2+ mg/dl Current Medications Medications Dose Sig/Gregoria Start Time Status Last (Trade) Ordered Route PRN Stop Time Admin Dose Reason Admin Sodium 1,000 ml @ Q1H STAT 06/09/19 DC 06/09/19 Chloride 1,000 mls/hr IV 15:26 06/09/19 15:45 16:25 Ondansetron 4 mg ONCE STAT 06/09/19 DC 06/09/19 HCl (Zofran IV 15:26 06/09/19 15:46 Inj) 15:28 Famotidine 20 mg ONCE STAT 06/09/19 DC 06/09/19 (Pepcid Iv) IV 15:26 06/09/19 15:47 15:28 40 ml ONCE STAT 06/09/19 DC 06/09/19 Miscellaneous PO 15:26 06/09/19 15:49 Medication 15:28 (Gi Cocktail (2)) Belladonna/ 2 tab ONCE STAT 06/09/19 DC 06/09/19 Phenobarbital PO 15:26 06/09/19 15:49 () 15:28 Morphine 4 mg ONCE STAT 06/09/19 DC 06/09/19 Sulfate IV 16:06 06/09/19 16:09 (morphine) 16:07 Morphine 4 mg ONCE STAT 06/09/19 DC 06/09/19 Sulfate IV 17:56 06/09/19 18:01 (morphine) 17:57 Ondansetron 4 mg ONCE STAT 06/09/19 DC 06/09/19 HCl (Zofran IV 17:56 06/09/19 18:00 Inj) 17:57 Ondansetron 4 mg BRIDGE ORDER 06/09/19 HCl (Zofran PRN IV 20:00 Inj) NAUSEA/VOMITI 06/10/19 19:59 NG 650 mg ER BRIDGE 06/09/19 Acetaminophen PRN PO 20:00 (Tylenol .MILD PAIN 06/10/19 19:59 Tab) 1-3 OR TEMP Citalopram 10 mg DAILY PO 06/10/19 Hydrobromide 09:00 (Celexa) Gabapentin 300 mg BID PO 06/09/19 (Neurontin) 22:00 Loratadine 10 mg DAILY PO 06/10/19 (Claritin) 09:00 Ranitidine 150 mg HS PO 06/09/19 DC HCl 21:00 06/09/19 (Zantac) 21:00 40 mg 06/10/19 Pantoprazole BID@0600,1800 06:00 (Protonix PO Tab) Sodium 1,000 ml @ Q10H IV 06/09/19 Chloride 100 mls/hr 23:00 IV Flush 3 ml PER 06/09/19 (NS 3 ml) PROTOCOL IV 20:30 Ondansetron 4 mg Q6H PRN 06/09/19 HCl (Zofran IV 20:30 Inj) NAUSEA/VOMITI NG 650 mg Q6H PRN 06/09/19 Acetaminophen PO .PAIN 1-3 20:30 (Tylenol OR TEMP Tab) Morphine 2 mg Q4H PRN 06/09/19 Sulfate IV .SEVERE 20:30 (morphine) PAIN 7-10 Lidocaine 15 ml ONCE ONCE 06/09/19 DC (Xylocaine PO 20:30 06/09/19 (Viscous)) 20:31 Procedures/MDM MDM The patient's presentation warrants further investigation. Previous medical records, if available, were reviewed. LABS The patient's laboratory testing was obtained and reviewed. No emergent treatment was required unless described below. CBC: No E/o systemic infection or severe anemia or thrombocytopenia Chemistry: No E/o severe acidosis or alkalosis or renal failure or liver disease or diabetic ketoacidosis Lipase: No E/o pancreatitis Urine: No E/o acute infection or hematuria IMAGING Imaging and Radiology interpretation reviewed. CT Abd/Pelvis FINDINGS: LUNG BASES: Unremarkable. No mass. No consolidation. ABDOMEN: LIVER: Unremarkable. GALLBLADDER AND BILE DUCTS: Unremarkable. No calcified stones. No ductal dilation. PANCREAS: Unremarkable. No ductal dilation. SPLEEN: Unremarkable. No splenomegaly. ADRENALS: Unremarkable. No mass. KIDNEYS AND URETERS: Atrophy of the left kidney. Right kidney is morphologically normal. No nephrolithiasis or hydronephrosis. STOMACH AND BOWEL: Dilated loops of small bowel in the upper abdomen, consistent with small bowel obstruction. No mucosal thickening. PELVIS: APPENDIX: The appendix is normal in appearance. No evidence of appendicitis. BLADDER: Unremarkable. No stones. REPRODUCTIVE: The uterus is not identified, consistent with previous hysterectomy. The uterus is not identified, consistent with previous hysterectomy. ABDOMEN and PELVIS: INTRAPERITONEAL SPACE: Unremarkable. No free air. No significant fluid collection. BONES/JOINTS: Degenerative spine changes are noted. No acute fracture. No dislocation. SOFT TISSUES: Unremarkable. VASCULATURE: Unremarkable. LYMPH NODES: Unremarkable. No enlarged lymph nodes. IMPRESSION: 1. Dilated loops of small bowel in the upper abdomen, consistent with complete small bowel obstruction. No perforation or ischemic change demonstrated. The degree of small bowel distension is worse when compared to 02/25/2019. 2. Atrophy of the left kidney. Right kidney is morphologically normal. No nephrolithiasis or hydronephrosis. Electronically viewed and signed by Lety Blanchard, Physician Greenhouse Assistant on 06/09/2019 18:37 TREATMENT/DISPOSITION The patient has a small bowel obstruction. She has had this in the past, based on previous studies, it appears to have been partial in the past. Today, she looks to have a complete small bowel obstruction. An NG tube was ordered. The patient will need to be n.p.o. General surgery will be consulted. The patient endorsed to general discomfort, but no exquisite pain. The patient does not have any evidence of peritonitis. The patient does not have clinical symptoms concerning for mesenteric ischemia or ischemic colitis. I have low suspicion for gallstones, cholecystitis or biliary colic. I have low suspicion for gastritis, PUD or GERD. The patient's lipase is normal. I have low suspicion for pancreatitis. The patient's CT scan does not reveal appendicitis. The patient's urinalysis is negative without evidence of cystitis. The patient CT does not reveal diverticulosis or diverticulitis. The patient does not have any flank tenderness. The patient does not have gross hematuria. I have decreased suspicion for nephrolithiasis or renal colic. The patient does not have any palpable pulsatile mass or severe abdominal pain radiating to the back. I have low suspicion for aortic aneurysm, dissection or rupture. The patient was treated with IV fluids, Zofran, Pepcid and a GI cocktail initially. The patient ultimately required morphine and Zofran for pain contr ol. ADMISSION At this time, I feel that the patient requires admission for further evaluation and management. The patient will be admitted to [Panel] in accordance with the patient's insurance. The patient was accepted by Dr. De Leon at 7:40 PM on June 09, 2019. Dr. Ramirez, the on-call general surgeon, was consulted and will evaluate the patient in the hospital. Disclaimer: Inadvertent spelling and grammatical errors are likely due to EHR/dictation software use and do not reflect on the overall quality of patient care. Note that the electronic time recorded on this note does not necessarily reflect the actual time of the patient encounter. Departure Diagnosis: Primary Impression: Small bowel obstruction Additional Impressions: Abdominal pain Abdominal location: generalized Qualified Codes: R10.84 - Generalized abdominal pain Nausea & vomiting Vomiting type: unspecified Vomiting Intractability: non-intractable Qualified Codes: R11.2 - Nausea with vomiting, unspecified History of hysterectomy History of endometrial cancer Condition: Serious DARRELL BOOKER MD Jun 09, 2019 21:25
[2019-06-09 21:51] VITALS: BP 108/71; PULSE 58; RESP 19
[2019-06-09] MEDS: GABAPENTIN 300 MG CAP PO SCH (22:19)
[2019-06-09] MEDS: SOD CHLORIDE 0.9% 1,000 ML IV SCH (22:20)
[2019-06-09] MEDS ORDERED: LIDOCAINE 2% VISC 15 ML CUP PO SCH (22:30)
[2019-06-10 02:39] VITALS: BP 106/56; PULSE 61; RESP 20
[2019-06-10] MEDS: PANTOPRAZOLE (EC) 40 MG TAB PO SCH ×2 (05:18→17:30)
[2019-06-10 08:00] VITALS: BP 87/50; PULSE 55; RESP 18
[2019-06-10 08:38] VITALS: BP 91/51
[2019-06-10] MEDS: LORATADINE 10 MG TAB PO SCH (09:26)
[2019-06-10] MEDS: SOD CHLORIDE 0.9% 1,000 ML IV SCH ×3 (09:26→22:42)
[2019-06-10] MEDS: GABAPENTIN 300 MG CAP PO SCH ×2 (09:26→21:00)
[2019-06-10] MEDS: CITALOPRAM 20 MG TAB PO SCH (09:26)
[2019-06-10] MEDS ORDERED: IOHEXOL 300MG/ML 150 ML BTL ONE (09:45)
--- NOTE | 2019-06-10 12:18 | PN ---
Date/Time of Note Date/Time of Note DATE: 06/10/19 TIME: 12:18 Assessment/Plan VTE Prophylaxis Risk score (from Ns)>0 risk: 2 SCD applied (from Ns): Yes Pharmacological prophylaxis: NA/contraindicated Pharm contraindication: low risk/ambulating Lines/Catheters IV Catheter Type (from [facility]): Peripheral IV Urinary Cath still in place: No Assessment/Plan Hospital Course SUBJECTIVE: Patient with improved abdominal pain. She did not have a bowel movement. Patient reported passing flatus. No nausea or vomiting. OBJECTIVE: Vital signs-see below PHYSICAL EXAM: Constitutional: Well-developed, adequately built, lying in bed comfortably. Psych: nl mood/affect, no complaints Head: atraumatic, normocephalic Eyes: nl conjunctiva, nl sclera ENMT: mucosa pink and moist, nl external ears & nose Neck: non-tender, supple Respiratory: clear to auscultation, normal air movement Cardiovascular: nl pulses, regular rate and rhythm Gastrointestinal: Hypoactive bowel sounds.+Old surgical scar. Musculoskeletal/extremities: nl extremities to inspection, motor strength equal bilaterally, no focal deficit. Normal pulses,no cyanosis, no edema. Neurological: Alert oriented 3,nl speech, nl strength Skin: nl turgor ASSESSMENT/PLAN:63-year-old female with a past medical history of ovarian carcinoma, status post EDIN/BSO, history of SBO, presented with generalized abdominal pain associated with nausea, concerning for small bowel obstruction. SBO,Recurrent -Symptoms improving -cont.bowel rest, pain control-pt refused ngt decompression. -f/u surgical recs Mild PATRICIA -Stable. Continue gentle hydration. Iron Deficient anemia -Stable H&H. Monitor History of ovarian carcinoma, status post EDIN/BSO -Outpatient follow-up Anxiety disorders -Continue sertraline DVT prophylaxis: SCDs PUD prophylaxis: Pepcid CODE STATUS: Full code Diet: N.p.o. for now. Diet advancement per surgery Disposition: Follow-up surgical recommendations. Patient is seen in collaboration with Result Diagram: 06/10/19 0640 06/10/19 0640 Results 24hrs Laboratory Tests Test 06/09/19 15:39 06/09/19 18:08 06/10/19 06:40 06/10/19 09:30 White Blood Count 9.6 # 5.2 # Red Blood Count 4.73 3.94 L Hemoglobin 12.9 10.6 L Hematocrit 39.6 33.5 L Mean Corpuscular 83.7 85.0 Volume Mean Corpuscular 27.3 L 26.9 L Hemoglobin Mean Corpuscular 32.6 31.6 L Hemoglobin Concent Red Cell Distribution 14.2 14.4 Width Platelet Count 332 # 256 # Mean Platelet Volume 9.7 10.2 Immature Granulocytes 0.300 0.400 % Neutrophils % 86.6 H 62.0 Lymphocytes % 10.5 L 27.3 Monocytes % 2.4 8.4 Eosinophils % 0.0 1.5 Basophils % 0.2 0.4 Nucleated Red Blood 0.0 0.0 Cells % Immature Granulocytes 0.030 0.020 # Neutrophils # 8.3 H 3.2 Lymphocytes # 1.0 1.4 Monocytes # 0.2 L 0.4 Eosinophils # 0.0 0.1 Basophils # 0.0 0.0 Nucleated Red Blood 0.0 0.0 Cells # Sodium Level 142 144 Potassium Level 4.1 4.4 Chloride Level 105 112 H Carbon Dioxide Level 26 26 Anion Gap 11 6 Blood Urea Nitrogen 17 18 Creatinine 1.12 H 1.11 H Est Glomerular Filtrat 49 L 50 L Rate mL/min Glucose Level 168 83 # Calcium Level 10.4 H 8.5 Total Bilirubin 0.5 0.7 Direct Bilirubin 0.00 0.00 Indirect Bilirubin 0.5 0.7 Aspartate Amino 38 33 Transf (AST/SGOT) Alanine 23 18 Aminotransferase (ALT/ SGPT) Alkaline Phosphatase 98 59 Total Protein 8.8 H 6.3 # Albumin 4.8 3.3 # Globulin 4.00 H 3.00 Albumin/Globulin Ratio 1.20 1.10 Lipase 118 Urine Color YELLOW YELLOW Urine Clarity CLEAR CLEAR Urine pH 7.0 6.0 Urine Specific [place] 1.020 1.012 Urine Ketones 1+ H NEGATIVE Urine Nitrite NEGATIVE NEGATIVE Urine Bilirubin NEGATIVE NEGATIVE Urine Urobilinogen NEGATIVE NEGATIVE Urine Leukocyte NEGATIVE NEGATIVE Esterase Urine Microscopic RBC 4 Urine Microscopic WBC 4 Urine Mucus FEW A Urine Hemoglobin NEGATIVE NEGATIVE Urine Glucose NEGATIVE NEGATIVE Urine Total Protein 2+ H NEGATIVE Hemoglobin A1c 5.1 Magnesium Level 2.1 Urine Random 86.48 Creatinine Urine 0.11 Protein/Creatinine Ratio Exam/Review of Systems Exam Vitals Vital Signs Date Temp Pulse Resp B/P (MAP) Pulse Ox O2 O2 Flow FiO2 Time Delivery Rate 7/10/19 91/51 (64) 08:38 06/10/19 98.0 55 18 99 Room Air 08:00 Intake and Output 06/09/19 06/09/19 06/10/19 1515:00 23:00 07:00 IntakeIntake Total 600 ml BalanceBalance 600 ml Results Results 24hrs Laboratory Tests Test 06/09/19 15:39 06/09/19 18:08 06/10/19 06:40 06/10/19 09:30 White Blood Count 9.6 # 5.2 # Red Blood Count 4.73 3.94 L Hemoglobin 12.9 10.6 L Hematocrit 39.6 33.5 L Mean Corpuscular 83.7 85.0 Volume Mean Corpuscular 27.3 L 26.9 L Hemoglobin Mean Corpuscular 32.6 31.6 L Hemoglobin Concent Red Cell Distribution 14.2 14.4 Width Platelet Count 332 # 256 # Mean Platelet Volume 9.7 10.2 Immature Granulocytes 0.300 0.400 % Neutrophils % 86.6 H 62.0 Lymphocytes % 10.5 L 27.3 Monocytes % 2.4 8.4 Eosinophils % 0.0 1.5 Basophils % 0.2 0.4 Nucleated Red Blood 0.0 0.0 Cells % Immature Granulocytes 0.030 0.020 # Neutrophils # 8.3 H 3.2 Lymphocytes # 1.0 1.4 Monocytes # 0.2 L 0.4 Eosinophils # 0.0 0.1 Basophils # 0.0 0.0 Nucleated Red Blood 0.0 0.0 Cells # Sodium Level 142 144 Potassium Level 4.1 4.4 Chloride Level 105 112 H Carbon Dioxide Level 26 26 Anion Gap 11 6 Blood Urea Nitrogen 17 18 Creatinine 1.12 H 1.11 H Est Glomerular Filtrat 49 L 50 L Rate mL/min Glucose Level 168 83 # Calcium Level 10.4 H 8.5 Total Bilirubin 0.5 0.7 Direct Bilirubin 0.00 0.00 Indirect Bilirubin 0.5 0.7 Aspartate Amino 38 33 Transf (AST/SGOT) Alanine 23 18 Aminotransferase (ALT/ SGPT) Alkaline Phosphatase 98 59 Total Protein 8.8 H 6.3 # Albumin 4.8 3.3 # Globulin 4.00 H 3.00 Albumin/Globulin Ratio 1.20 1.10 Lipase 118 Urine Color YELLOW YELLOW Urine Clarity CLEAR CLEAR Urine pH 7.0 6.0 Urine Specific [place] 1.020 1.012 Urine Ketones 1+ H NEGATIVE Urine Nitrite NEGATIVE NEGATIVE Urine Bilirubin NEGATIVE NEGATIVE Urine Urobilinogen NEGATIVE NEGATIVE Urine Leukocyte NEGATIVE NEGATIVE Esterase Urine Microscopic RBC 4 Urine Microscopic WBC 4 Urine Mucus FEW A Urine Hemoglobin NEGATIVE NEGATIVE Urine Glucose NEGATIVE NEGATIVE Urine Total Protein 2+ H NEGATIVE Hemoglobin A1c 5.1 Magnesium Level 2.1 Urine Random 86.48 Creatinine Urine 0.11 Protein/Creatinine Ratio Medications Medication Current Medications Citalopram Hydrobromide (Celexa) 10 mg DAILY PO Last administered on 06/10/19 09:26; Admin Dose 10 MG; Start 06/10/19 at 09:00 Gabapentin (Neurontin) 300 mg BID PO Last administered on 06/10/19 09:26; Admin Dose 300 MG; Start 06/09/19 at 22:00 Loratadine (Claritin) 10 mg DAILY PO Last administered on 06/10/19 09:26; Admin Dose 10 MG; Start 06/10/19 at 09:00 Pantoprazole (Protonix Tab) 40 mg BID@0600,1800 PO Last administered on 06/10/19 05:18; Admin Dose 40 MG; Start 06/10/19 at 06:00 Sodium Chloride 1,000 ml @ 100 mls/hr Q10H IV Last administered on 06/10/19 09:26; Admin Dose 100 MLS/HR; Start 06/09/19 at 23:00; Stop 06/10/19 at 22:59 IV Flush (NS 3 ml) 3 ml PER PROTOCOL IV ; Start 06/09/19 at 20:30 Ondansetron HCl (Zofran Inj) 4 mg Q6H PRN IV NAUSEA/VOMITING; Start 06/09/19 at 20:30 Acetaminophen (Tylenol Tab) 650 mg Q6H PRN PO .PAIN 1-3 OR TEMP; Start 06/09/19 at 20:30 Morphine Sulfate (morphine) 2 mg Q4H PRN IV .SEVERE PAIN 7-10; Start 06/09/19 at 20:30 ZUHAIR STEVENSON NP Jun 10, 2019 12:18
[2019-06-10 14:30] VITALS: BP 95/54; PULSE 62; RESP 20
--- NOTE | 2019-06-10 17:03 | CONS ---
Assessment/Plan Assessment/Plan Assessment/Plan (Daily) No evidence of bowel obstruction Plan: Patient can be started on clear liquids and her diet advanced. She tolerated diet the patient may be discharged and followed up as an outpatient Consultation Date/Type/Reason Admit Date/Time Date of Consultation: Jun 10, 2019 Type of Consult General surgery Reason for Consultation Small bowel obstruction Date/Time of Note DATE: 06/10/19 TIME: 16:59 Hx of Present Illness Patient is a 63-year-old female with past history of endometrial carcinoma for which she underwent a EDIN/BSO. She was admitted yesterday because of abdominal pain and a CT scan which suggested small bowel obstruction. A small bowel follow-through has been ordered this morning and is just been completed the small bowel follow-through shows no evidence of bowel obstruction. The patient's symptoms have effervesced and she feels quite well Review of systems HEENT: Unremarkable Pulmonary: No history of asthma, shortness of breath or pneumonia Cardiac: No history of chest pain [place] or arrhythmia Abdomen: As in the HPI : As in the HPI Past Medical History Medical History: other (Endometrial carcinoma) Home Meds Reported Medications Citalopram Hydrobromide* (Citalopram Hydrobromide*) 10 Mg Tablet, 10 MG PO DAILY, #30 TAB 06/09/19 Loratadine* (Loratadine*) 10 Mg Tablet, 10 MG PO DAILY, #30 TAB 06/09/19 Ranitidine Hcl* (Ranitidine Hcl*) 150 Mg Tablet, 150 MG PO HS, #30 TAB 02/25/19 Omeprazole* (Omeprazole*) 20 Mg Capsule.dr, 20 MG PO BID, #60 CAP 02/25/19 Gabapentin* (Gabapentin*) 300 Mg Capsule, 300 MG PO BID, #60 CAP 02/25/19 Medications Current Medications Citalopram Hydrobromide (Celexa) 10 mg DAILY PO Last administered on 06/10/19at 09:26; Admin Dose 10 MG; Start 06/10/19 at 09:00 Gabapentin (Neurontin) 300 mg BID PO Last administered on 06/10/19at 09:26; Admin Dose 300 MG; Start 06/09/19 at 22:00 Loratadine (Claritin) 10 mg DAILY PO Last administered on 06/10/19at 09:26; Admin Dose 10 MG; Start 06/10/19 at 09:00 Pantoprazole (Protonix Tab) 40 mg BID@0600,1800 PO Last administered on 06/10/19at 05:18; Admin Dose 40 MG; Start 06/10/19 at 06:00 Sodium Chloride 1,000 ml @ 100 mls/hr Q10H IV Last administered on 06/10/19at 09:26; Admin Dose 100 MLS/HR; Start 06/09/19 at 23:00; Stop 06/10/19 at 22:59 IV Flush (NS 3 ml) 3 ml PER PROTOCOL IV ; Start 06/09/19 at 20:30 Ondansetron HCl (Zofran Inj) 4 mg Q6H PRN IV NAUSEA/VOMITING; Start 06/09/19 at 20:30 Acetaminophen (Tylenol Tab) 650 mg Q6H PRN PO .PAIN 1-3 OR TEMP; Start 06/09/19 at 20:30 Morphine Sulfate (morphine) 2 mg Q4H PRN IV .SEVERE PAIN 7-10; Start 06/09/19 at 20:30 Allergies: Coded Allergies: diclofenac (Unverified Allergy, Severe, sob; itchiness, 06/09/19) Past Surgical History Past Surgical Hx: other Family History Significant Family History: no pertinent family hx Social History Alcohol Use: none Smoking Status: Never smoker Drug Use: none Exam/Review of Systems Exam Vitals Vital Signs Date Temp Pulse Resp B/P (MAP) Pulse Ox O2 O2 Flow FiO2 Time Delivery Rate 06/10/19 98.0 62 20 95/54 (68) 98 Room Air 14:30 Intake and Output 06/09/19 06/09/19 06/10/19 1515:00 23:00 07:00 IntakeIntake Total 600 ml BalanceBalance 600 ml Constitutional: alert, oriented Psych: no complaints Head: normocephalic Eyes: nl conjunctiva ENMT: nl external ears & nose Neck: supple Respiratory: clear to auscultation Cardiovascular: regular rate and rhythm Gastrointestinal: soft Musculoskeletal: nl extremities to inspection Extremities: normal pulses Neurological: 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 intact Results Result Diagram: 06/10/19 0640 06/10/19 0640 Results 24hrs Laboratory Tests Test 06/09/19 18:08 06/10/19 06:40 06/10/19 09:30 Urine Color YELLOW YELLOW Urine Clarity CLEAR CLEAR Urine pH 7.0 6.0 Urine Specific [place] 1.020 1.012 Urine Ketones 1+ H NEGATIVE Urine Nitrite NEGATIVE NEGATIVE Urine Bilirubin NEGATIVE NEGATIVE Urine Urobilinogen NEGATIVE NEGATIVE Urine Leukocyte Esterase NEGATIVE NEGATIVE Urine Microscopic RBC 4 Urine Microscopic WBC 4 Urine Mucus FEW A Urine Hemoglobin NEGATIVE NEGATIVE Urine Glucose NEGATIVE NEGATIVE Urine Total Protein 2+ H NEGATIVE White Blood Count 5.2 # Red Blood Count 3.94 L Hemoglobin 10.6 L Hematocrit 33.5 L Mean Corpuscular Volume 85.0 Mean Corpuscular Hemoglobin 26.9 L Mean Corpuscular Hemoglobin Concent 31.6 L Red Cell Distribution Width 14.4 Platelet Count 256 # Mean Platelet Volume 10.2 Immature Granulocytes % 0.400 Neutrophils % 62.0 Lymphocytes % 27.3 Monocytes % 8.4 Eosinophils % 1.5 Basophils % 0.4 Nucleated Red Blood Cells % 0.0 Immature Granulocytes # 0.020 Neutrophils # 3.2 Lymphocytes # 1.4 Monocytes # 0.4 Eosinophils # 0.1 Basophils # 0.0 Nucleated Red Blood Cells # 0.0 Sodium Level 144 Potassium Level 4.4 Chloride Level 112 H Carbon Dioxide Level 26 Anion Gap 6 Blood Urea Nitrogen 18 Creatinine 1.11 H Est Glomerular Filtrat Rate mL/min 50 L Glucose Level 83 # Hemoglobin A1c 5.1 Calcium Level 8.5 Magnesium Level 2.1 Total Bilirubin 0.7 Direct Bilirubin 0.00 Indirect Bilirubin 0.7 Aspartate Amino Transf (AST/SGOT) 33 Alanine Aminotransferase (ALT/SGPT) 18 Alkaline Phosphatase 59 Total Protein 6.3 # Albumin 3.3 # Globulin 3.00 Albumin/Globulin Ratio 1.10 Urine Random Creatinine 86.48 Urine Protein/Creatinine Ratio 0.11 Medications Medication Current Medications Citalopram Hydrobromide (Celexa) 10 mg DAILY PO Last administered on 06/10/19 09:26; Admin Dose 10 MG; Start 06/10/19 at 09:00 Gabapentin (Neurontin) 300 mg BID PO Last administered on 06/10/19 09:26; Admin Dose 300 MG; Start 06/09/19 at 22:00 Loratadine (Claritin) 10 mg DAILY PO Last administered on 06/10/19 09:26; Admin Dose 10 MG; Start 06/10/19 at 09:00 Pantoprazole (Protonix Tab) 40 mg BID@0600,1800 PO Last administered on 7/10/19at 05:18; Admin Dose 40 MG; Start 06/10/19 at 06:00 Sodium Chloride 1,000 ml @ 100 mls/hr Q10H IV Last administered on 06/10/19at 09:26; Admin Dose 100 MLS/HR; Start 06/09/19 at 23:00; Stop 06/10/19 at 22:59 IV Flush (NS 3 ml) 3 ml PER PROTOCOL IV ; Start 06/09/19 at 20:30 Ondansetron HCl (Zofran Inj) 4 mg Q6H PRN IV NAUSEA/VOMITING; Start 06/09/19 at 20:30 Acetaminophen (Tylenol Tab) 650 mg Q6H PRN PO .PAIN 1-3 OR TEMP; Start 06/09/19 at 20:30 Morphine Sulfate (morphine) 2 mg Q4H PRN IV .SEVERE PAIN 7-10; Start 06/09/19 at 20:30 ALEM HARDY MD Jun 10, 2019 17:03
[2019-06-10 21:37] VITALS: BP 101/59; PULSE 64; RESP 16
[2019-06-11 01:56] VITALS: BP 102/62; PULSE 60; RESP 16
[2019-06-11] MEDS: PANTOPRAZOLE (EC) 40 MG TAB PO SCH (05:32)
--- NOTE | 2019-06-11 07:35 | QN ---
Documentation Comment Abdomen soft and nontender No abdominal complaints Tolerating p.o. nicely Cleared for discharge home today ALEM HARDY MD Jun 11, 2019 07:35
[2019-06-11 07:53] VITALS: BP 114/55; PULSE 63; RESP 18
[2019-06-11] MEDS: GABAPENTIN 300 MG CAP PO SCH (10:36)
[2019-06-11] MEDS: CITALOPRAM 20 MG TAB PO SCH (10:36)
[2019-06-11] MEDS: LORATADINE 10 MG TAB PO SCH (10:36)
--- NOTE | 2019-06-11 12:20 | PDOCDIS ---
Discharge Instructions CONDITION [id number] Patient Condition: [id number] Stable HOME CARE INSTRUCTIONS: [id number] Your diet recommendation is: [id number] Soft diet in small portions. FOLLOW UP/APPOINTMENTS Follow-up Plan Follow-up with primary care physician in 1 week. ZUHAIR STEVENSON NP Jun 11, 2019 12:20
--- NOTE | 2019-06-11 12:27 | DS ---
Date/Time of Note Date/Time of Note DATE: 06/11/19 TIME: 12:23 Discharge Summary Admission/Discharge Info Admit Date/Time Jun 09, 2019 at 19:42 Discharge Date/Time Discharge Diagnosis Recurrent SBO.resolved Mild PATRICIA.stable Iron Deficient anemia History of ovarian carcinoma, status post EDIN/BSO Anxiety disorders Patient Condition: Stable Consults Procedures 06/10/2019: Small bowel x-ray IMPRESSION: Oral contrast passes through small bowel and into the colon within 1 hour. No evidence of bowel obstruction. Hospital Course 63-year-old female with a past medical history of ovarian carcinoma, status post EDIN/BSO, history of SBO, presented with generalized abdominal pain associated with nausea, concerning for small bowel obstruction on CT scan. Patient was admitted to medical surgical floor. She was kept on bowel rest, given IV fluids and pain control. Patient was evaluated by Dr. Ramirez from surgery. Patient was able to pass flatus. A repeat small bowel x-ray did not reveal any further small bowel obstruction. Patient was then started on a clear diet which was then advanced. Patient did not have any further symptoms. She was having normal bowel movements. Comorbidities were managed per outpatient medication regimen. She was also noted with a mild AKA which responded to fluids. At this time, patient's vital signs and labs stable back to baseline. She is eager to be discharged home. Patient to follow-up with primary care physician in 1 week. Approximately 60-minute was spent on coordinating the discharge on this patient. Patient was seen in collaboration with Dr. Aguilar. Home Meds Reported Medications Citalopram Hydrobromide* (Citalopram Hydrobromide*) 10 Mg Tablet, 10 MG PO DAILY, #30 TAB 06/09/19 Loratadine* (Loratadine*) 10 Mg Tablet, 10 MG PO DAILY, #30 TAB 06/09/19 Ranitidine Hcl* (Ranitidine Hcl*) 150 Mg Tablet, 150 MG PO HS, #30 TAB 02/25/19 Omeprazole* (Omeprazole*) 20 Mg Capsule., 20 MG PO BID, #60 CAP 02/25/19 Gabapentin* (Gabapentin*) 300 Mg Capsule, 300 MG PO BID, #60 CAP 02/25/19 Follow-up Plan Follow-up with primary care physician in 1 week. Primary Care Provider Not On Staff Doctor Pending Labs Laboratory Tests Test 06/11/19 06:03 Sodium Level 143 mmol/L (135-144) Potassium Level 3.7 mmol/L (3.5-5.1) Chloride Level 112 mmol/L (97-110) Carbon Dioxide Level 26 mmol/L (21-31) Anion Gap 5 (5-13) Blood Urea Nitrogen 13 mg/dl (7-20) Creatinine 1.08 mg/dl (0.44-1.00) Est Glomerular Filtrat Rate mL/min 51 mL/min (>60) Glucose Level 82 mg/dl (70-220) Calcium Level 8.5 mg/dl (8.4-10.2) ZUHAIR STEVENSON NP Jun 11, 2019 12:27
[2019-06-11 14:00] VITALS: BP 109/59; PULSE 65; RESP 17
== END 2019-06-11 14:46 | disposition home or self-care (01) | DRG 389 ==
LOC: E/R 15:02 → PP2 19:42
PROVIDERS: ADMIT Family Medicine; ATTEND Family Medicine
DX: K56.609 Unspecified intestinal obstruction, unspecified as to partial versus complete obstruction (principal); N17.9 Acute kidney failure, unspecified; F41.9 Anxiety disorder, unspecified; D50.9 Iron deficiency anemia, unspecified; K21.9 Gastro-esophageal reflux disease without esophagitis; Z85.42 Personal history of malignant neoplasm of other parts of uterus; Z92.21 Personal history of antineoplastic chemotherapy; Z90.710 Acquired absence of both cervix and uterus; Z85.43 Personal history of malignant neoplasm of ovary
CPT/HCPCS: 36415; 74176; 74250; 76775; 80048; 80053; 81001; 81003; 82570; 83036; 83690; 83735; 85025; 96361; 96374; 96375; 96376; J2270; J2405; J7030; Q9967